=== PATIENT | male | born 1945 | race Hispanic/Latino ===

== ENCOUNTER 2016-11-20 15:32 | Inpatient (IN) | payer MEDICARE ==
[~2016-11-20] VITALS: Ht 172.7 cm; Wt 75.2 kg
[~2016-11-20 15:32] MED LIST: FUR20 PO; GLPZ5T PO; INSU100V7 SUBQ; LIP40 PO; LISI40TA PO; LOM PO; MECL-114 PO; METF1000 PO; METO25TA6 PO; POTA10TA12 PO; PREG100C PO; TRIA10.8 NOSTRIL
[2016-11-20 15:36] VITALS: BP 82/48; PULSE 67; RESP 14; O2SAT 99
[2016-11-20 16:24] LABS: BASOPHILS % (AUTO) 0.2 % (0-3); EOSINOPHILS % (AUTO) 0.6 % (0-5); MONOCYTES % (AUTO) 7.1 % (4-12); Mean Corpuscular Hemoglobin 20.9 pg (27.0-35.0); Mean Corpuscular Volume 70.1 fL (81-100); NEUTROPHILS % (AUTO) 85.9 % (40-74); Platelet Count 172 bil/L (150-400)
--- NOTE | 2016-11-20 16:50 | ED.REPORT ---
HPI-GI Bleed Date of Service November 20, 2016 ED Provider: Jovan Troncoso MD Patient is a 71 year old male who presents to the ED complaining of bright red bloody stools with clots onset last night. Associated symptoms include generalized weakens. He denies abdominal pain, chest pain, SOB, or any other symptoms. Past bloody couple times today. First bowel movement today had stool others did not. He has not passed any blood rectally since arrival. Not anticoagulated, no history of similar problems, does have a history of anemia. He is not on blood thinners. Nursing Notes Stated Complaint: BLEEDING Chief Complaint: Male Abdominal Pain Nursing Notes Reviewed: Yes Allergies: Coded Allergies: No Known Allergies (Verified Allergy, Unknown, 09/27/16) Scheduled Atorvastatin (Lipitor) 40 Mg Tablet 40 MG PO DAILY Furosemide (Furosemide) 40 Mg Tablet 40 MG PO DAILY Insulin Glargine (Lantus U100 Insulin Vial) 100 Unit/Ml Vial 12 UNIT SUBQ BID General Time Seen by Provider: 16:49 Chief Complaint Chief Complaint: Stool bright red blood Hx Obtained From: Patient, Other family... Arrived By: Walk-in Onset Occurred: Yesterday Symptom Duration: Since onset Past Medical History Past Medical History Notes: Patient is full code Past Medical History Peripheral neuropathy Reports: Diabetes mellitus, Hypertension Past Surgical History R hip replacement Smoking History Never Smoker Social History Alcohol Use: 1-3 per week Ambulatory Status Crutches Review of Systems Constitutional: Reports: Weakness - generalized Respiratory: Denies: Shortness of breath Cardiovascular: Denies: Chest pain GI: Reports: Hematochezia, Denies: Abdominal pain Complete sys rev & neg: except as marked. Physical Exam Initial Vital Signs Vital Signs (First) Date Time Temp Pulse Resp B/P Pulse Ox O2 Delivery O2 Flow Rate FiO2 11/20/16 15:36 35.9 67 14 82/48 99 Initial VS: Reviewed, Vital signs normal Head / Eyes: Atraumatic, Normocephalic Neck: Full range of motion Skin: Warm, Dry Psychiatric: Mood/affect normal, Behavior normal, Normal thought content General/Constitutional: Awake, Alert, Well developed Respiratory / Chest: Breath sounds NL, Breath sounds = bilat, No respiratory distress Cardiovascular: Heart rate NL, Regular rhythm, Heart sounds NL, No gallop, No murmurs, No rubs Abdomen: Soft, Non-tender, BS normoactive, No pulsatile mass Rectum / Perineum: No gross blood guaiac positive Interpretation & Diagnostics Lab Results Interpretation Result Diagram: 11/20/16 1548 11/20/16 1548 Test 11/20/16 15:48 White Blood Count 10.1th/mm3 (3.8-10.1) Red Blood Count 3.35mil/mm3 (4.40-5.80) Hemoglobin 7.0g/dL (13.8-17.2) Hematocrit 23.5% (41.0-50.0) Mean Corpuscular Volume 70.1fL (81-100) Mean Corpuscular Hemoglobin 20.9pg (27.0-35.0) Mean Corpuscular Hemoglobin Concent 29.8% (32.0-37.0) Red Cell Distribution Width 18.8% (12.3-15.4) Platelet Count 172bil/L (150-400) Neutrophils (%) (Auto) 85.9% (40-74) Lymphocytes (%) (Auto) 5.9% (14-46) Monocytes (%) (Auto) 7.1% (4-12) Eosinophils (%) (Auto) 0.6% (0-5) Basophils (%) (Auto) 0.2% (0-3) Prothrombin Time 10.7sec (8.1-12.5) Prothromb Time International Ratio 1.00ratio Sodium Level 132mEq/L (134-144) Potassium Level 4.6mEq/L (3.5-5.2) Chloride Level 98mEq/L (97-108) Carbon Dioxide Level 18mmol/L (18-29) Blood Urea Nitrogen 48mg/dL (8-27) Creatinine 2.27mg/dL (0.76-1.27) Estimat Glomerular Filtration Rate 30mL/min (>59) Glucose Level 416mg/dL (60-99) Calcium Level 8.7mg/dL (8.5-10.1) Total Bilirubin 0.2mg/dL (0.0-1.2) Aspartate Amino Transf (AST/SGOT) 28U/L (0-50) Alanine Aminotransferase (ALT/SGPT) 64U/L (0-44) Alkaline Phosphatase 165U/L (25-160) Total Protein 7.4g/dL (6.4-8.4) Albumin 2.9g/dL (3.4-5.0) Hold Khouyr Top Tube Received (Received) Lab Results Interpretation: Labs on 10/25/15: hemoglobin 8.8 hematocrit 27.0 ECG Interpretation ECG Interpretation: Sinus rate 67 LVH Abnormal R wave progression Time: 16:19 Interpreted by: ED physician Re-Eval/Medical Decision Med Decision/Clinical Course [id number] male with GI bleeding and anemia. Arrived with a reported systolic pressure of 80, subsequent blood pressures were normotensive and he was not orthostatic. Not having active bleeding in the department. Type and crossmatch for 4 units of packed red cells, I do not feel its mandatory to transfuse him at present. Was given a Protonix bolus and will need a Protonix drip GI has been consulted will be admitted to the hospitalist service. Re-Evaluation/Progress : Time of Eval: 16:59 Re-Evaluation/Progress Note: Discussed plan for admission. Patient understands and agrees with plan. All questions addressed at this time. Pt agrees to blood transfusion if necessary. Consultation #1: Referral / Consult Name: Deep Peterson MD Call Returned at: 17:30 Note: Discussed pt case with GI. Will consult. Consultation #2: Referral / Consult Name: Guru Jean Baptiste DO Consulted With: Hospitalist Call Returned at: 18:07 Rope Cleaner: Will see patient, Agrees with eval, Agrees with plan, Accepts admit Note: Discussed pt case. Accepts admit. Counseled Regarding: Diagnosis, Lab results, Need for admission Discharge & Departure Impression: Primary Impression: GI bleed GI bleed type/associated pathology: unspecified gastrointestinal hemorrhage type Qualified Code: K92.2 - Gastrointestinal hemorrhage, unspecified Disposition: ADMITTED TO HOSPITAL Discharge Condition All VS Reviewed: Yes Condition: Stable Referrals: Afsaneh Ybarra DO (PCP) Scribe Attestation Portions of this note were transcribed by Sana Woodward. I, Dr. Troncoso personally performed the history, physical exam and medical decision-making; I reviewed and confirmed the accuracy of the information in the transcribed note. Signed by: Sana Woodward 11/20/2016, 1811 copies to: Afsaneh Ybarra Donald L MD November 20, 2016 16:50 SANA WOODWARD November 20, 2016 16:58
[2016-11-20] MEDS ORDERED: 0.9% Sodium Chloride 1,000 ML IV ONE (17:10)
[2016-11-20 17:25] VITALS: BP_SYST 126; BP_DIAS 56; BP_DIAS 65; PULSE 67; PULSE 68
[2016-11-20 17:27] VITALS: BP 131/83; PULSE 69
[2016-11-20] MEDS ORDERED: Pantoprazole 4 mg/mL 10 mL Inj IVPUSH ONE (17:40)
[2016-11-20] MEDS ORDERED: INSU100V7 SUBQ (17:43)
[2016-11-20] MEDS ORDERED: FURO40TA4 PO (17:43)
[2016-11-20] MEDS ORDERED: 0.9% Sodium Chloride 1,000 ML IV SCH (18:09)
[2016-11-20] MEDS ORDERED: Glucose 40% Oral Gel 15 Gm Tube PO PRN (18:10)
[2016-11-20] MEDS ORDERED: Polyethylene Glycol (PEG) 17 Gm Powder PO PRN (18:10)
[2016-11-20] MEDS ORDERED: Ondansetron 2 mg/mL 2 mL Inj IVPUSH PRN (18:10)
[2016-11-20] MEDS ORDERED: Alum-Mag Hydrox-Simeth 30 mL Suspension PO PRN (18:10)
--- NOTE | 2016-11-20 18:18 | PCM.HPMED ---
Subjective Date of Service November 20, 2016 Primary Provider: Admitting Physician: Primary Care Physician: Afsaneh Ybarra DO Attending Physician: Chief Complaint: Bright red blood in stool starting last night History of Present Illness: Patient is 71-year-old male past medical history significant for diabetes mellitus poorly controlled in addition to previously noted anemia presenting to emergency department earlier today for multiple episodes of bright red blood per rectum noted with stool which started last night. Denies any abdominal pain during that process or any other acute complaints. He has not been experiencing any lightheadedness chest pain shortness of breath palpitations. Additionally denies any fever chills or sweats. He denies any previous episodes of blood in his stool. He is not on any blood thinning medication, does not suffer from severe reflux, and has no past history of known gastric intestinal conditions. He does suffer from diabetes which is known to be poorly controlled, additionally suffers from lower extremity swelling but he is not aware of any cardiac conditions. There was no other acute complaints at this time. States he is feeling overall pretty well, though when pressed admits perhaps a little more weak than usual. Review of Systems: A 10 point review of systems was conducted and entirely negative excepting pertinent positives and negatives included in above history of present illness Allergies Coded Allergies: No Known Allergies (Verified Allergy, Unknown, 09/27/16) Home Medications Atorvastatin (Lipitor) 40 Mg Tablet 40 MG PO DAILY Furosemide (Furosemide) 20 Mg Tab 20 MG PO DAILY Glipizide (Glipizide) 5 Mg Tablet 5 MG PO BIDAC Insulin Glargine (Lantus U100 Insulin Vial) 100 Unit/Ml Vial 12 UNIT SUBQ BID Lisinopril (Lisinopril) 40 Mg Tablet 20 MG PO DAILY Meclizine (Bonine) 25 Mg Tab.chew 25 MG PO DAILY Metformin (Glucophage) 1,000 Mg Tablet 1,000 MG PO BIDWM Metoprolol Tartrate (Metoprolol Tartrate) 25 Mg Tablet 25 MG PO BID Potassium Chloride ER (Potassium Chloride ER) 10 Meq Tablet 10 MEQ PO DAILY TAKE WITH FOOD Pregabalin (Lyrica) 100 Mg Capsule 100 MG PO TID Triamcinolone Acetonide (Nasacort) 10.8 Ml [place] 1 SPRAY NOSTRIL DAILY 1 spray in each nostril Scheduled PRN Diphenoxylate/Atropine (Diphenoxylate-Atrop 2.5-0.025) 2.5 Mg Tablet 2.5 MG PO Q6 PRN PRN For Diarrhea or Loose Stool PMH Peripheral neuropathy Diabetes mellitus Hypertension Anemia Legally blind Surgical History R hip replacement Family History Patient is unsure of medical history of his parents Social History Hx Alcohol Use: No Hx Substance Use: No Hx Tobacco Use: No Smoking Status: Never Smoker Living Arrangement: with Family Exam Vital Signs Vital Sign - Last Date Time Temp Pulse Resp B/P Pulse Ox O2 Delivery O2 Flow Rate FiO2 11/20/16 17:27 69 131/83 11/20/16 15:36 35.9 14 99 General: Alert, Oriented X3, Cooperative, No Acute Distress Eyes: PERRLA, EOMI, Other (sclera are pale) Mouth: Mucous Membranes Dry Neck: Supple Chest & Lungs: Clear to auscultation & percussion Cardiovascular: Regular Rate/Rhythm, No Murmurs/Rubs/Gallops Abdomen: Non-tender, Non-distended Extremities: No cyanosis/clubbing/edma bilat Neurological: Grossly Neurologically Intact, Cranial Nerves 2-12 Intact Lab and Diagnostics Result Diagram: 11/20/16 1548 11/20/16 1548 Assessment & Plan 71-year-old male past medical history significant for anemia and diabetes mellitus presenting to the emergency department with one-day history of bright red blood per rectum in addition to abdominal pain, subsequently found to have a progressive anemia admitted for further medical evaluation and treatment. 1. Acute gastrointestinal bleed - Based on bright red blood lower GI bleed appears more likely cause of patient' s condition - He will be made nothing by mouth and started on a Protonix pump at this time for expectant endoscopy by gastroenterology or to consulted from ER - Transfusion was also ordered and pending 1 units packed red blood cells - Patient is currently hemodynamically stable - Patient to be started on bowel prep in anticipation of upper and lower endoscopy scheduled tomorrow morning by fur machine operator. 2. Anemia - Subacute on chronic condition - Previously identified during hospitalization 1 year prior October 2015, underlying etiology is not clear at that time despite extensive workup. - Acute management as per problem 1. 3. Diabetes mellitus type II uncontrolled - Patient returns ER with blood sugar over 400 - 10 units insulin provided on admission - Provided intravenous hydration condition to size scale insulin with moderate strength - Hemoglobin A1c is ordered and pending. 4. Acute renal failure - Continue intravenous hydration - Continue to RFTs - May be acute on chronic condition, given past medical history significant for poorly controlled diabetes. 5. Lower extremity edema - During previous hospitalization 2016 patient had echocardiogram that did know concentric thickening with a preserved ejection fraction. - Patient is on home Lasix for treatment of edema plan to restart tomorrow after procedure. - Given history of poorly controlled diabetes he is certainly at risk for coronary artery disease, lower extremity edema may certainly be evidence of this. - Patient is unaware previous workup for subsequent echocardiograms since last evaluation. Likely this can be deferred for outpatient evaluation however should be considered should patient demonstrate evidence of acute exacerbation or decompensation secondary to volume overload. 6. Hyperlipidemia, -Continue home statin to be restarted following procedure Pain Evaluation: Adequate Pain Control GI Prophylaxis: Proton Pump Inhibitor VTE Mechanical Devices: Intermittant Pneumatic CD Resuscitation Status: CPR: Attempt Resuscitation Time spent 55 minutes Guru Jean Baptiste DO November 20, 2016 18:18
[2016-11-20] MEDS ORDERED: PEG/Electrolytes 4,000 mL Solution PO ONE ×2 (18:40→18:45)
[2016-11-20 18:50] VITALS: BP 149/80; PULSE 70; RESP 18; O2SAT 99
[2016-11-20] MEDS ORDERED: 0.9% Sodium Chloride 250 ML IV ONE (18:50)
[2016-11-20] MEDS ORDERED: Insulin LISPRO 300 Unit/3 mL Inj SUBQ ONE (18:55)
[2016-11-20 19:46] VITALS: BP 145/85; PULSE 68; RESP 16; O2SAT 100
[2016-11-20] MEDS: Pantoprazole Inj 80 MG in 0.9% Sodium Chloride 80 ML IV SCH (19:57)
[2016-11-20] MEDS: Insulin LISPRO 300 Unit/3 mL Inj SUBQ SCH (23:54)
[2016-11-21] VITALS (17 sets, daily range): BP systolic 101–161; BP diastolic 64–94; PULSE 56–83; RESP 16–20; O2SAT 93–100
[2016-11-21] MEDS ORDERED: PEG/Electrolytes 4,000 mL Solution PO ONE (01:00)
--- NOTE | 2016-11-21 02:43 | CONS ---
[address] [address] CONSULTATION REPORT PATIENT: TRICIA RAMIREZ : 1945 MR#: [id number] ADMIT: 11/20/2016 JOB ID: [id number] DATE OF SERVICE: PHYSICIAN REQUESTING CONSULTATION: Jovan Troncoso MD, in the emergency department. REASON FOR CONSULTATION: Rectal bleeding. HISTORY OF PRESENT ILLNESS: The patient is a 71-year-old gentleman whose past medical history is significant for poorly-controlled diabetes and chronic anemia dating back to at least October 04, 2015, who apparently was in his usual state of health until yesterday evening when he had painless rectal bleeding which he describes as bright red. He had one episode the night before last and had another episode today and, therefore, he presented to the emergency department via car. He denies any associated abdominal pain, nausea, vomiting, fevers, chills, sweats. He denies any diarrhea or constipation. He states he has had no prior history of rectal bleeding. He has had no history of endoscopy needed for colon cancer screening, upper endoscopy for gastroesophageal reflux, or history of peptic ulcer disease. He does take Advil liquid gels, not daily, but he states that for the last seven years has been taking off and on for right hip pain following right hip surgery. He denies any nausea or vomiting. He does not take any antacids at home. His weight has been stable. He denies starting any new medications. He denies any blood thinning medications. PAST MEDICAL HISTORY: Significant for diabetes, hypertension, chronic anemia, peripheral neuropathy. PAST SURGICAL HISTORY: Includes right hip surgery. FAMILY HISTORY: Noncontributory. SOCIAL HISTORY: Denies any alcohol abuse. Denies any tobacco use. He lives with his daughter in [place]. 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 HOME MEDICATIONS: Include atorvastatin, furosemide, glipizide, Lantus, lisinopril, meclizine, metformin, metoprolol, potassium chloride, Lyrica, triamcinolone acetonide. He takes diphenoxylate-atropine for diarrhea or loose stools, which he states has been a while since he has had. ALLERGIES: He has no known drug allergies. REVIEW OF SYSTEMS: His 10 point review of systems is unremarkable. PHYSICAL EXAM: Initially in the ED, he was hypotensive with a blood pressure of 82/48, but then with subsequent IV fluids, his blood pressure improved to 149/80. He has been afebrile. His current temperature was 36.3, his pulse was 70, respiratory rate is 18, with an O2 saturation of 99% on room air. Generally, he is an elderly-appearing gentleman, who appears younger than his stated age. HEENT: Mild pallor. No icterus. Oropharynx is clear. Chest exam is clear to auscultation bilaterally. Cardiovascular exam: S1, S2 heard. Abdomen is soft, nontender, nondistended, without hepatosplenomegaly. Extremities with edema. LABORATORY DATA: Shows hemoglobin of 7, hematocrit of 23.5. His baseline hemoglobin for the past one year has ranged anywhere from 7.5-8.8. His platelet count is 172. His PT is 10.7, and INR is 1. His sodium 132, potassium 4.6, chloride of 48, CO2 of 18. His previous creatinine was 1.15, and BUN was 31, and this is from October 2015. The remainder of his comprehensive metabolic profile shows an elevated total bili of 2, AST of 28, ALT of 64, alkaline phosphatase is 165, total protein 7.4, albumin of 2.9. CT imaging done back in October 2015, which includes chest, abdomen, and pelvis with IV contrast, shows that the liver and spleen are normal in size and enhancement. Gallbladder appeared normal. Biliary system is nondilated. Pancreas enhances normally. He has some very small bilateral simple-appearing pleural effusions incidentally noted, bibasilar atelectasis, otherwise unremarkable CT chest, abdomen, and pelvis. ASSESSMENT AND PLAN: 1. A 71-year-old gentleman with a history of poorly-controlled diabetes, presenting with rectal bleeding, with acute kidney injury. Recommended starting him on a PPI drip and prepping for a colonoscopy. With his history of Advil, we may be dealing with an upper GI source such as peptic ulcer disease, esophagitis or gastritis. If upper endoscopy is negative, will plan then to evaluate his colon for a lower GI source which may be secondary to diverticular disease versus neoplasm, which I believe is less likely, versus arteriovenous malformations (AVMs). Would continue to ensure the patient has two peripheral IVs. Type and cross, and transfuse blood to keep hemoglobin above 7. 2. Abnormal liver function tests. Would recommend checking a hepatitis panel as well as obtaining an ultrasound of his liver. If those are normal, would recommend completing a chronic liver disease workup just to rule out any underlying chronic liver disease. 3. Renal insufficiency. I suspect this may be from his bleeding, and I suspect may be resolved with transfusion of blood products and IV fluids. Thank you for allowing me to participate in the patient's care. If you have any further questions, please do not hesitate to contact me.
[2016-11-21] MEDS: Pantoprazole Inj 80 MG in 0.9% Sodium Chloride 80 ML IV SCH (05:03)
[2016-11-21 05:24] LABS: BASOPHILS % (AUTO) 0.3 % (0-3); EOSINOPHILS % (AUTO) 1.9 % (0-5); MONOCYTES % (AUTO) 9.3 % (4-12); Mean Corpuscular Hemoglobin 22.5 pg (27.0-35.0); Mean Corpuscular Volume 73.1 fL (81-100); NEUTROPHILS % (AUTO) 76.5 % (40-74); Platelet Count 144 bil/L (150-400)
--- NOTE | 2016-11-21 05:41 | NUR ---
Admission/Blood transfusion Patient admitted to [facility] 2030 at 1850. Bowel prep initiated per orders for 0700 procedure. Patient given 1 unit of PRBC for low H&H; tolerated transfusion well. Patient completed bowel prep within the specified time limit and made NPO after 0300. Continue to monitor.
[2016-11-21] MEDS ORDERED: Propofol 10,000 mCg/mL 20 mL Inj ONE (07:08)
[2016-11-21] MEDS: Insulin LISPRO 300 Unit/3 mL Inj SUBQ SCH ×4 (08:00→22:00)
[2016-11-21] MEDS ORDERED: Ondansetron 2 mg/mL 2 mL Inj IVPUSH PRN (08:15)
[2016-11-21] MEDS ORDERED: MetoCLOpramide 5 mg/mL 2 mL Inj IVPUSH PRN (08:15)
[2016-11-21] MEDS ORDERED: Lactated Ringer's 1,000 ML IV SCH (08:15)
--- NOTE | 2016-11-21 08:15 | PCM.HPANE ---
Patient Data Date of Service: November 21, 2016 (Exam completed 7:02) Surgeon Admitting Provider:Guru Jean Baptiste DO Attending Provider:Guru Jean Baptiste DO Primary Care Physician:Afsaneh Ybarra DO Other Provider: Reason for Visit Gi Bleed Ht/WT & BMI Height (Feet): 5 Height (Inches): 8.00 Weight (Kilograms): 77.270 Body Mass Index 25.00 Allergies Coded Allergies: No Known Allergies (Verified Allergy, Unknown, 09/27/16) Past Anesthesia History Anesthesia History: Denies:: Anesthesia Reactions Diabetes History Hx Diabetes?: Yes (insulin at home) Current Bedside Blood Glucose: 127 MRSA MRSA: No Medications Home Meds Incl Beta Gretchen: Yes Date Beta Gretchen Taken: November 19, 2016 Time Beta Gretchen Taken: 0900 Reported Medications Furosemide 40 Mg Vgvufy67 Mg PO DAILY 11/20/16 Insulin Glargine (Lantus U100 Insulin Vial)100 Unit/Ml Vial12 Unit SUBQ BID #1 VIAL Ref 0 11/20/16 Atorvastatin (Lipitor)40 Mg Lhbagk71 Mg PO DAILY Ref 0 10/22/15 Discontinued Reported Medications Potassium Chloride ER 10 Meq Tobpkb89 Meq PO DAILY Ref 0 TAKE WITH FOOD 09/27/16 Pregabalin (Lyrica)100 Mg Simhjcy090 Mg PO TID 30 Days Ref 0 09/27/16 Meclizine (Bonine)25 Mg Tab.chew25 Mg PO DAILY 06/18/16 Diphenoxylate/Atropine (Diphenoxylate-Atrop 2.5-0.025)2.5 Mg Tablet2.5 Mg PO Q6 PRN For Diarrhea or Loose Stool 06/18/16 Glipizide 5 Mg Tablet5 Mg PO BIDAC 30 Days 10/22/15 Metformin (Glucophage)1,000 Mg Tablet1,000 Mg PO BIDWM Ref 0 10/22/15 Triamcinolone Acetonide (Nasacort)10.8 Ml Spray1 [place] NOSTRIL DAILY 1 spray in each nostril 10/22/15 Lisinopril 40 Mg Daiqex20 Mg PO DAILY 30 Days Ref 0 10/22/15 Insulin Glargine (Lantus U100 Insulin Vial)100 Unit/Ml Vial12 Unit SUBQ BID #1 VIAL Ref 0 10/22/15 Discontinued Scripts Furosemide 20 Mg Tab20 Mg PO DAILY #30 TABLET Ref 0 Prov:Sawyer Meza DO 10/25/15 Metoprolol Tartrate 25 Mg Tbqitn81 Mg PO BID #60 TABLET Ref 0 Prov:Sawyer Meza DO 10/25/15 History History of ENT Problems?: No HEENT History: Denies:: Cataracts (patient unsure) Dysphagia Glaucoma Sinus Problem Denture Type: None Teeth Condition: Tooth Decay Missing Teeth Hx of Heart Problems?: Yes Cardiovascular History: Positive for:: Chest Pain Congestive Heart Failure Hypertension Denies:: Cardiac Surgery Edema Heart Murmur Irregular Heartbeat Pacemaker Thrombophlebitis Hx of Respiratory Problem?: No Respiratory History: Positive for:: Emphysema Other History/Comment Possible COPD, patient unsure but reports possibility. Hx Neurologic Problems?: Yes Neurological History: Positive for:: Dizziness Headaches Denies:: Alzheimer's Disease CVA Dementia Parkinson's Disease Seizures Hx of GI Problems?: Yes Hx of Problems?: No Male Hx: Denies:: Prostate Problems ("I have to check it") Scrotal Mass Testicular Surgery Other Skin Pertinent History: Diabetic foot ulcers bilateral lower extremities Hx Musculoskeletal Problems?: Yes Musculoskeletal History: Positive for:: Back Injury (back pain) Joint Replacement (right hip) Denies:: Musculoskeletal Trauma Hx of Psycho/Social Problems?: No Hx Surgeries?: Yes (Right hip replacement, Right knee surgery) Hx Any Other Health Problems?: Yes Other History: Positive for:: Hospitalization (hip replacement, foot wounds) Denies:: Cancer Thyroid Disease History Blood Transfusions: Positive for:: Accept Blood Products? Blood Transfusions Denies:: Blood Transfuse Reaction Hx Diabetes: Yes (insulin at home)Bedside Blood Glucose: 127 Hx Alcohol Use: Yes (occasional social, last drink 1 beer on 11/19)Alcoholic Drinks Per Day: 1-2 on weekends or social occasionsHx Substance Use: No Smoking Status: Never Smoker Stop/Bang Treated for Sleep Apnea?: No Do You Have a CPAP Machine?: No S-Snoring: Do You Snore Loudly: No T-Tired: feel tired, fatigued: No O-Obsered: Observed not breath: No P-Blood Pressure: treated: Yes B- Body Mass Index > 35 kg/m2: No A- Age over 50: Yes N- Neck Large Circumference: No G- Gender Male: Yes SENDY Total Score: 3 SENDY Risk Assessment: Low Risk, <3 Yes Risk Assessment Category Category 1A: Patient has history of documented sleep apnea, and HAS NOT received any narcotic, sedative or anesthesia administration during this stay. Category 1B: Patient has history of documented sleep apnea, and HAS received any narcotic , sedative or anesthesia administration during this stay Category 2: Patient has SUSPECTED Obstructive Sleep Apnea, and HAS received any narcotic , sedative or anesthesia administration during this stay. Category 3: Patient has SUSPECTED Obstructive Sleep Apnea and HAS NOT received narcotic, sedative or anesthesia administration during this stay. Category 4: Outpatient in Procedural Areas with known sleep apnea or who screen positive for High Risk via the STOP/BANG questionnaire. Exam Exam Vital Signs Vital Signs Date Time Temp Pulse Resp B/P Pulse Ox O2 Delivery O2 Flow Rate FiO2 11/21/16 08:09 67 16 124/72 94 Room Air 11/21/16 08:01 70 16 118/73 94 Room Air 11/21/16 07:02 60 16 133/82 100 Room Air 11/21/16 05:08 69 11/21/16 03:57 34.7 56 16 117/69 11/21/16 02:13 57 101/66 11/21/16 01:38 36.3 61 16 104/64 100 Room Air 11/21/16 01:34 36.3 62 16 104/64 11/21/16 01:04 36.4 65 16 124/75 General Appearance: Alert, Oriented X3, Cooperative, No Acute Distress HEENT/AIRWAY: MP 2, Neck Movement Lungs: Clear to Auscultation, Normal Air Movement Heart: Exam Unremarkable, Regular Rate/Rhythm, No Murmurs/Rubs/Gallops Meds/Labs/Diagnostics Admission Meds Current Medications Sodium Chloride (Normal Saline) 1,000 ml @ 0 mls/hr Q0M ONCE IV Last administered on 11/20/16 17:24; Start 11/20/16 at 17:10; Stop 11/20/16 at 17:11 ; Status DC Pantoprazole 40 mg 40 mg ONCE ONCE IVPUSH Last administered on 11/20/16 17:46 ; Start 11/20/16 at 17:40; Stop 11/20/16 at 17:41; Status DC Pantoprazole/ Sodium Chloride (Protonix Inj/ Normal Saline) 100 ml @ 10 mls/hr Q10H IV Last administered on 11/21/16 05:03; Start 11/20/16 at 18:10 Insulin Human Lispro (HumaLOG Insulin Inj) [facility] SUBQ Last administered on 11/20 23:54; Start 11/20/16 at 22:00 Polyethylene Glycol/ Electrolytes (Colyte) 2,000 ml ONCE ONCE PO Last administered on 11/21/16 01:02; Start 11/21/16 at 01:00; Stop 11/21/16 at 01:01 ; Status DC Polyethylene Glycol/ Electrolytes 2000 ml 2,000 ml ONCE ONCE PO Last administered on 11/20/16 19:57; Start 11/20/16 at 18:45; Stop 11/20/16 at 18:46 ; Status DC Sodium Chloride (Normal Saline) 250 ml @ 10 mls/hr Q24H ONCE IV Last administered on 11/21/16 01:02; Start 11/20/16 at 18:50; Stop 11/21/16 at 18:49 Bedside Blood Glucose: 127 Labs Test 11/20/16 15:48 11/21/16 04:27 Prothrombin Time 10.7sec (8.1-12.5) Prothromb Time International Ratio 1.00ratio Hold Khoury Top Tube Received (Received) White Blood Count 7.3th/mm3 (3.8-10.1) Red Blood Count 3.46mil/mm3 (4.40-5.80) Hemoglobin 7.8g/dL (13.8-17.2) Hematocrit 25.3% (41.0-50.0) Mean Corpuscular Volume 73.1fL (81-100) Mean Corpuscular Hemoglobin 22.5pg (27.0-35.0) Mean Corpuscular Hemoglobin Concent 3.8% (32.0-37.0) Red Cell Distribution Width 21.8% (12.3-15.4) Platelet Count 144bil/L (150-400) Neutrophils (%) (Auto) 76.5% (40-74) Lymphocytes (%) (Auto) 11.9% (14-46) Monocytes (%) (Auto) 9.3% (4-12) Eosinophils (%) (Auto) 1.9% (0-5) Basophils (%) (Auto) 0.3% (0-3) Sodium Level 137mEq/L (134-144) Potassium Level 4.8mEq/L (3.5-5.2) Chloride Level 103mEq/L (97-108) Carbon Dioxide Level 20mmol/L (18-29) Blood Urea Nitrogen 43mg/dL (8-27) Creatinine 1.93mg/dL (0.76-1.27) Estimat Glomerular Filtration Rate 37mL/min (>59) Glucose Level 127mg/dL (60-99) Calcium Level 8.6mg/dL (8.5-10.1) Total Bilirubin 0.5mg/dL (0.0-1.2) Aspartate Amino Transf (AST/SGOT) 30U/L (0-50) Alanine Aminotransferase (ALT/SGPT) 58U/L (0-44) Alkaline Phosphatase 153U/L (25-160) Total Protein 6.8g/dL (6.4-8.4) Albumin 2.9g/dL (3.4-5.0) Plan Impression Patient chart reviewed, patient interviewed and anesthestic plan with risks, benefits, and alternatives discussed, and informed consent obtained. NPO per Anesth. Guidelines: Yes ASA Physical Status: ASA3 Severe Disease Anesthetic Plan: GA Bene/Risks/Altern/Consents: Yes HP Complete Prior to Induction: Yes Abdelrahman Colon MD November 21, 2016 08:15
--- NOTE | 2016-11-21 08:30 | NUR ---
Return to unit Patient returned to unit from enodoscopy. Patient somnolent but easily aroused, oriented x3. Denies pain/discomfort, VSS. Transfers to bed/chair 1PA. Call light within reach and family at bedside.
--- NOTE | 2016-11-21 09:01 | ENDO ---
[address] [address] ENDOSCOPY PROCEDURE PATIENT: TRICIA RAMIREZ : 1945 MR#: [id number] ADMIT: 11/20/2016 JOB ID: [id number] PROCEDURE PERFORMED: Esophagogastroduodenoscopy. INDICATION: Rectal bleeding with elevated BUN and creatinine. Please see anesthesia report for details regarding anesthesia. INSTRUMENT USED: GIF-H180J. PROCEDURE DETAILS: After informed consent was obtained, the patient was brought into the GI suite, where he was placed on oxygen via nasal cannula and monitored with continuous pulse oximeter, telemetry, and blood pressure monitoring. A time-out was performed. Then, he was placed in a left lateral decubitus position. A bite block was placed. The standard esophagogastroduodenoscopy scope was inserted through the bite block and advanced under direct visualization to second portion of the duodenum without difficulty. FINDINGS: 1. Normal appearing duodenal bulb, first and second portion. No old or fresh blood was seen on exam. 2. Normal appearing pylorus and antrum. 3. Retroflexed views in the gastric body revealed food debris present in the fundus which we were unable to evacuate. Therefore visualization of the complete fundus was limited, however no old or fresh blood was seen in the stomach. 4. The GE junction appeared unremarkable at 44 cm. 5. Normal appearing esophagus. IMPRESSION: Food debris in the fundus suggestive of gastroparesis. RECOMMENDATIONS: Discontinue Protonix drip to keep on Protonix daily and proceed to colonoscopy. PROCEDURE PERFORMED: Colonoscopy. INDICATION: Rectal bleeding. Please see above for ASA classification, Mallampati score, and medications. INSTRUMENT USED: PCF-H180L PREP QUALITY: Adequate, though in the right colon there was solid fibrinous food debris which we were unable to clear despite copious amounts of irrigation, however no large lesions seen, smaller polyps may have been missed. PROCEDURE DETAILS: After completion of the EGD exam, the patient was turned and then a digital rectal exam was performed, which was unremarkable. The colonoscope was then inserted into the rectum and advanced under direct visualization to the cecum, which was identified by the presence of the ileocecal valve and appendiceal orifice. Once the cecum was reached, we attempted to intubate the terminal ileum. However despite multiple attempts we were unsuccessful. At this point, the colonoscope was then withdrawn back into the rectum as the mucosa and lumen were examined. In the rectum, retroflexion was performed. Following retroflexion, remaining air in the rectum was suctioned, and procedure was completed. FINDINGS: 1. Approximately 4 mm sessile polyp in the ascending colon was removed with a cold snare. 2. A few small-mouthed diverticula were seen in the descending colon. 3. Small internal hemorrhoids were also noted on retroflexion. IMPRESSION: 1. Ascending colon polyp. 2. A few scattered diverticula in the left side of the colon. 3. Small internal hemorrhoids. No old or fresh blood was seen on exam. RECOMMENDATIONS: A clear liquid diet today and if no further bleeding and H and H has remained stable, could advance diet tomorrow and possibly discharged home. He has further bleeding and H and H stable tomorrow. COMPLICATIONS: None. ESTIMATED BLOOD LOSS: Less than 5 mL.
--- NOTE | 2016-11-21 10:22 | PCM.ANEP1 ---
Post Anesthesia PACU Phase 1 Assessment Vital Signs Vital Signs Date Time Temp Pulse Resp B/P Pulse Ox O2 Delivery O2 Flow Rate FiO2 11/21/16 08:45 36.0 66 16 144/84 98 Room Air 11/21/16 08:35 66 11/21/16 08:15 67 16 125/74 93 Room Air 11/21/16 08:09 67 16 124/72 94 Room Air 11/21/16 08:01 70 16 118/73 94 Room Air 11/21/16 07:02 60 16 133/82 100 Room Air 11/21/16 05:08 69 11/21/16 03:57 34.7 56 16 117/69 Anesthetic Administered: MAC Level of Alertness: Awake, talking Pain: No Nausea or Vomiting: No CV Function and Hydration: Yes Airway Device: Oxygen Delivery: Room Air Lungs: Clear to Auscultation, Normal Air Movement Dermatome Level: Full Sensation PACU Phase 2 Assessment Complications: No Follow up Care: N/A Patient Instructions Provided: Yes Abdelrahman Colon MD November 21, 2016 10:21
--- NOTE | 2016-11-21 14:09 | PCM.PNMED ---
Subjective Date of Service November 21, 2016 Subjective Fahad Hu is a 71-year-old man with past medical history significant for anemia and diabetes mellitus presenting to the emergency department with one- day history of bright red blood per rectum in addition to abdominal pain, subsequently found to have a progressive anemia admitted for further medical evaluation and treatment. This morning the patient ate a full diet and tolerated it well. There have been no further episodes of bleeding. The patient states he feels well and denies any abdominal pain. The remainder of review of systems is negative except as noted above. Exam Vital Signs Vital Sign - Last Date Time Temp Pulse Resp B/P Pulse Ox O2 Delivery O2 Flow Rate FiO2 11/21/16 13:34 36.8 83 18 141/86 100 Room Air Intake and Output 11/20/16 11/20/16 11/21/16 Cumulative From/Thru 15:00 23:00 07:00 11/20/16 15:36 - 11/21/16 06:54 Intake Total 5027 ml 5027 ml Output Total 3000 ml 3000 ml Balance 2027 ml 2027 ml Intake Oral 4000 ml 4000 ml IV Total 727 ml 727 ml Packed Cells 300 ml 300 ml Output Urine/Stool Mix 3000 ml 3000 ml Exam General: Alert, Oriented X3, Cooperative, No Acute Distress Eyes: PERRLA, EOMI, Other (sclera are pale) Mouth: Mucous Membranes Dry Neck: Supple Chest & Lungs: Clear to auscultation & percussion Cardiovascular: Regular Rate/Rhythm, No Murmurs/Rubs/Gallops Abdomen: Non-tender, Non-distended Extremities: No cyanosis/clubbing/edma bilat Neurological: Grossly Neurologically Intact, Cranial Nerves 2-12 Intact IVs and Medications Medications Reviewed: Medications were reviewed in detail Lab and Diagnostics Result Diagram: 11/21/16 0427 11/21/16 0427 Additional Diagnostics EGD and Colonoscopy findings: IMPRESSION: Food debris in the fundus suggestive of gastroparesis. IMPRESSION: Ascending colon polyp. A few scattered diverticula in the left side of the colon. Small internal hemorrhoids. No old or fresh blood was seen on exam. Deep Peterson MD 11/21/16 4541 Assessment & Plan Fahad Hu is a 71-year-old man with past medical history significant for anemia and diabetes mellitus presenting to the emergency department with one- day history of bright red blood per rectum in addition to abdominal pain, subsequently found to have a progressive anemia admitted for further medical evaluation and treatment. 1. Acute gastrointestinal bleed, present on admission, resolved - Based on bright red blood lower GI bleed appears more likely cause of patient' s condition. - EGD and colonoscopy were not revealing of cause of bleeding. - Transfusion was also ordered and pending 1 units packed red blood cells - Patient is currently hemodynamically stable - Continue clear liquids today per Dr. Peterson 2. Anemia, normochromic normocytic, present on admission, stable - Subacute on chronic condition - Previously identified during hospitalization 1 year prior October 2015, underlying etiology is not clear at that time despite extensive workup. - Acute management as per problem 1. 3. Diabetes mellitus type II uncontrolled - Patient returns ER with blood sugar over 400 - 10 units insulin provided on admission - Provided intravenous hydration condition to size scale insulin with moderate strength - Hemoglobin A1c is ordered and pending. 4. Acute renal failure, present on admission, improving - Continue intravenous hydration - May be acute on chronic condition, given past medical history significant for poorly controlled diabetes. - Continue to monitor 5. Lower extremity edema, present on admission, stable - During previous hospitalization 2015 patient had echocardiogram that did know concentric thickening with a preserved ejection fraction. - Given history of poorly controlled diabetes he is certainly at risk for coronary artery disease, lower extremity edema may certainly be evidence of this. - Patient is unaware previous workup for subsequent echocardiograms since last evaluation. Likely this can be deferred for outpatient evaluation however should be considered should patient demonstrate evidence of acute exacerbation or decompensation secondary to volume overload. Disposition: Anticipate patient can be discharged tomorrow. GI Prophylaxis: Proton Pump Inhibitor VTE Mechanical Devices: Intermittant Pneumatic CD Resuscitation Status: CPR: Attempt Resuscitation Time spent 25 minutes Attending Statement I have seen and evaluated patient at bedside in addition to directly supervising care provided by resident physician. I agree with above documentation In the absence of any acute bleed and patient's medical history significant for severe anemia in the past, it may be that this is a more chronic condition and blood noted with stool partially confounding finding generated from hemorrhoids. Iron deficiency, and possible hormonal imbalance created by renal disease may be more directly related to patient's current condition that acute bleed. Should patient remain essentially hemodynamically stable, and no concern for continued her severe gastrointestinal bleeding identified, possible iron deficiency and potentially consultation nephrology either inpatient or an outpatient setting may be considered. Trupti Phipps DO November 21, 2016 13:53 Guru Jean Baptiste DO November 21, 2016 15:05
--- NOTE | 2016-11-21 15:31 | NUR ---
Social Work: Initial Assessment Data & Assessment: See Initial Assessment. EMR reviewed. Patient is a 71 y/o male that admitted on 11/20/16 for GI bleed per H&P. SW met with patient and patient's family at bedside to complete initial assessment, SW role reviewed and discharge planning discussed. Patient's PCP is Afsaneh Ybarra DO and patient's insurance is Medicare. Patient's re-admit score is 0 no risk. Patient has no VA benefits and no LTC insurance. Patient does not have an Advance Directive/DPOA and declined the information. Patient's NOK is Omid Camargo [phone]. Patient lives at home with his family in a one story home with two steps to enter. Patient does not drive and has uses [place] canes to ambulate. Patient also has a walker and WC if needed. Patient has had HH in the patient but can not recall the name. Patient has never been admitted to a Senior Living Facility. Patient will likely discharge home no needs. SW will continue to follow patient for discharge planning needs. SW provided patient and patient's family with SW contact information. Plan: Patient will likely discharge home no needs. SW will continue to follow patient for discharge planning needs. Gabriel Frederick LMSW, PATT Addendum: 11/21/16 at 1543 by GABRIEL FREDERICK SS Amended: Links added. Addendum: 11/21/16 at 1543 by GABRIEL WONG Patient also has a walker and WC if needed.
[2016-11-22] VITALS (13 sets, daily range): BP systolic 175–224; BP diastolic 85–114; PULSE 70–85; RESP 14–17; O2SAT 97–100
--- NOTE | 2016-11-22 04:23 | NUR ---
GI Patient tolerating a clear liquid diet. Up to commode several times. Voiding without difficulty. No stools and not blood noted. Continue to monitor.
[2016-11-22] MEDS ORDERED: Propofol 10,000 mCg/mL 20 mL Inj ONE (07:49)
[2016-11-22] MEDS ORDERED: fentaNYL-PF 50 mCg/mL 2 mL Inj ONE (07:49)
[2016-11-22] MEDS ORDERED: EPHEDrine/NS 5 mg/mL 5 mL Syringe ONE (07:49)
[2016-11-22] MEDS: Insulin LISPRO 300 Unit/3 mL Inj SUBQ SCH ×4 (08:00→21:25)
[2016-11-22 08:53] LABS: Mean Corpuscular Hemoglobin 22.3 pg (27.0-35.0); Mean Corpuscular Volume 72.3 fL (81-100)
[2016-11-22 08:54] LABS: BASOPHILS % (AUTO) 0.3 % (0-3); EOSINOPHILS % (AUTO) 1.1 % (0-5); MONOCYTES % (AUTO) 11.1 % (4-12); NEUTROPHILS % (AUTO) 66.9 % (40-74); Platelet Count 168 bil/L (150-400)
[2016-11-22] MEDS: 0.9% Sodium Chloride 250 ML IV SCH (09:05)
[2016-11-22] MEDS: Pantoprazole 40 mg ER24 Tablet PO SCH (10:05)
--- NOTE | 2016-11-22 10:20 | PCM.DIMED ---
Discharge Instructions Date of Service November 22, 2016 Dates of Hospitalization November 20, 2016 at 18:12 Discharge Diagnosis Discharge Diagnosis Acute blood loss anemia; probable lower GI bleeding; acute kidney injury; type II diabetes mellitus; chronic disease anemia Medication Instructions Additional med instructions You should stop taking furosemide (Lasix) until you are seen by your primary care doctor and follow-up. This is because your kidneys seem to be slightly dehydrated. Do not take aspirin or iack-wiw-[id number] analgesic medicines except acetaminophen due to GI bleeding. Diet Discharge Diet: Diabetic Activity Discharge Activity: No restrictions, Other (resume Home Health RN for wound care) Call your provider Call your provider for: Bleeding (return to emergency department if you experience large volume bleeding or faintness.) Patient Instructions Patient Instructions Check your bowel movements for the appearance and evidence of blood. This should diminish gradually. Increase in red maroon colored or jet black colored bowel movements, especially if you feel dizzy or faint; indicates more bleeding. If this occurs then return to emergency department. Follow-up plan Check blood pressure. Consider when to return to furosemide. Follow-up Provider: Afsaneh Ybarra DO Follow-up with PCP in: 1 week (call tomorrow for a post-hospital follow-up appointment within 1 week.) Edgardo Chávez MD November 22, 2016 10:20
--- NOTE | 2016-11-22 10:28 | PCM.PNMED ---
Subjective Date of Service November 22, 2016 Subjective GI progress note Overnight the patient did well. No abdominal pain and no reports from nursing any hematochezia or melena. Patient denies obvious symptoms. Exam Vital Signs Vital Sign - Last Date Time Temp Pulse Resp B/P Pulse Ox O2 Delivery O2 Flow Rate FiO2 11/22/16 09:40 36.7 75 16 186/91 97 Room Air Intake and Output 11/21/16 11/21/16 11/22/16 Cumulative From/Thru 15:00 23:00 07:00 11/20/16 15:36 - 11/22/16 06:20 Intake Total 400 ml 1694 ml 300 ml 7421 ml Output Total 850 ml 600 ml 4450 ml Balance 400 ml 844 ml -300 ml 2971 ml Intake Oral 800 ml 300 ml 5100 ml IV Total 400 ml 894 ml 2021 ml Packed Cells 300 ml Output Urine Total 850 ml 600 ml 1450 ml Urine/Stool Mix 3000 ml # Voids 2 2 # Bowel Movements 1 1 Exam General: Patient awake and alert and conversive Cardio: Regular rate and rhythm Respiratory: CTA bilaterally Abdomen: Positive bowel sounds without tenderness Extremities: No edema Psych: Appropriate mood and affect IVs and Medications Medications Reviewed: Medications were reviewed in detail Lab and Diagnostics Result Diagram: 11/22/16 0810 11/22/16 0810 Additional Diagnostics EGD and Colonoscopy findings: IMPRESSION: Food debris in the fundus suggestive of gastroparesis. IMPRESSION: Ascending colon polyp. A few scattered diverticula in the left side of the colon. Small internal hemorrhoids. No old or fresh blood was seen on exam. Deep Peterson MD 11/21/16 7026 Assessment & Plan 71-year-old male with GI bleeding and underwent endoscopy with polypectomy and unremarkable EGD yesterday. Overnight patient's hemoglobin appeared to drop to 6.8 from 7.9. Unsure currently this is an accurate representation of the patient's anemia. Discussion with nursing reveals no hematochezia or melena, and patient does not complain of any nausea or vomiting, or abdominal pain. Recommendations for today are to continue patient on clear liquid diet and recheck H&H at 11:00 this morning. If needed transfusion can be given. Patient should continue on a PPI for now. If hemoglobin is up without transfusion patient should be able to go home. If bleeding continues, PillCam may be appropriate. Please have follow-up in the GI clinic within 2 weeks. Thank you for allowing us to participate in the care of this patient GI Prophylaxis: Proton Pump Inhibitor VTE Mechanical Devices: Intermittant Pneumatic CD Resuscitation Status: CPR: Attempt Resuscitation Attending Statement pt seen and examined agree with his note plan as outlined in his note Manoj Beckett DO November 22, 2016 10:28 Deep Peterson MD Dec 07, 2016 12:55 - 10 units insulin provided on admission - Provided intravenous hydration condition to size scale insulin with moderate strength - Hemoglobin A1c is ordered and pending. 4. Acute renal failure - Continue intravenous hydration - Continue to RFTs - May be acute on chronic condition, given past medical history significant for poorly controlled diabetes. 5. Lower extremity edema - During previous hospitalization 2016 patient had echocardiogram that did know concentric thickening with a preserved ejection fraction. - Patient is on home Lasix for treatment of edema plan to restart tomorrow after procedure. - Given history of poorly controlled diabetes he is certainly at risk for coronary artery disease, lower extremity edema may certainly be evidence of this. - Patient is unaware previous workup for subsequent echocardiograms since last evaluation. Likely this can be deferred for outpatient evaluation however should be considered should patient demonstrate evidence of acute exacerbation or decompensation secondary to volume overload. 6. Hyperlipidemia, -Continue home statin to be restarted following procedure GI Prophylaxis: Proton Pump Inhibitor VTE Mechanical Devices: Intermittant Pneumatic CD Resuscitation Status: CPR: Attempt Resuscitation Manoj Beckett DO November 22, 2016 10:28
--- NOTE | 2016-11-22 15:33 | NUR ---
Transfusion, Multidisciplinary Care 0930 - Discussed his care with Dr. Chávez, Dr. Phipps, and the rest of the multidisciplinary care team during morning rounds. [id number] - During this time he received 1 unit of Packed Red Blood Cells. Vitals remained consistent and he denied having any signs or symptoms of a blood transfusion reaction. 1142 - Was talking with the patient and asked him if he understood what the Doctors were saying to him. He said he was having a difficult time due to language barrier and medical language that was being used. Asked him if he thought he could benefit from having an wood gluer and he said that a Maltese or Bulgarian wood gluer would be very helpful when his family was not around to translate for him. Told him hospital staff would try to provide that service for him. He was very appreciative. 1218 - Noted that his legs were wrapped in a dressing and his family said that today would be a normal home health wound care day for him. Called Sebastian from Wound Care who said he had not received an order to check on his wounds, but to call him back if the Doctors decided to order it. 1300 - Spoke to Dr. Phipps and informed her of his need for an wood gluer. Also asked if he could get wound care. She said that if he needs to stay another day due to his H/H being low after a transfusion then he could get wound care today. Otherwise, he would discharge and the home health nurse could tend to him today. 1423 - Called Samina from the lab and told her the blood transfusion had finished and he would be ready to have his H/H redrawn. She said they would be there about 1500 to obtain it. Awaiting results. Care continues. Addendum: 11/22/16 at 1741 by TOM SWENSON RN 1550 - H/H came back and results were passed on to Dr. Phipps who said she would contact Dr. Chávez for discharge. 1620 - Nancy the [facility] notified this nurse that his blood pressure was 205/95. Paged Dr. Chávez who called back and said he would order some blood pressure medications which were given about 1710. Will check his blood pressure shortly and notify the MD. Care continues. Addendum: 11/22/16 at 1821 by TOM SWENSON RN 180 - Blood pressure was 221/114. Checked manually as well which revealed about the same BP. Notified Dr. Chávez via phone who came and told the pt and his family that due to his high blood pressure his discharge would need to be postponed till tomorrow. They were in agreement. Care continues.
--- NOTE | 2016-11-22 16:21 | NUR ---
Social Work-readiness for discharge: Data:EMR reviewed. Pt is on day 2 of hospitalization for GI Bleed per H&P. Pt is likely medically stable today or tomorrow. Pt resides at home with family where he remains independent with ADLS. SW informed by RN that pt is open with HH Services. SW placed a call to pt's daughter Omid who confirms that pt is open with [facility] for RN services. Resume HH orders will be needed from . Daughter confirms no other needs at this time. Pt's daughter to provide transport home. SW will continue to follow. Assessment:Pt who independent at baseline. Plan:Pt to discharge home with family support when medically stable. Per daughter pt is open with [facility]-RN. Resume HH orders will be needed from . SW will continue to follow. YAYA Valle
[2016-11-22] MEDS ORDERED: Enalaprilat 1.25 mg/mL 2 mL Inj IVPUSH STA (16:31)
--- NOTE | 2016-11-22 16:39 | NUR ---
Social Work- discharge: Data:EMR reviewed. Pt is on day 2 of hospitalization for GI Bleed per H&P. Pt is likely medically stable for discharge. Pt resides at home with family where he remains independent with ADLS. SAGAR requested Resume HH orders from For [facility]- career development manager. Samira aware of the pt and will resume services at home, access given. Pt's daughter updated and agreeable to plan. Daughter to provide transport home. All updated and agreeable to plan. Assessment:Pt who independent at baseline. Plan:Pt to discharge home with family support today via POV. Resume HH orders to be provided to [facility] For RN-wound care, access given. All updated and agreeable to plan. YAYA Valle Addendum: 11/23/16 at 0805 by HAI BEGUM SS SAGAR updated that pt did not discharge last night, discharge was cancelled. SAGAR will continue to follow. YAYA Valle
--- NOTE | 2016-11-22 17:22 | NUR ---
Wound care Patient seen at bedside for dressing change, pt usually has HH doing dressing changes 3xs/week. Presents with 2 small venous stasis ulcers at his right posterior calf, measuring 2 cm in diameter each, cleaned with saline, redressed with adaptic, kerlix and coban. Patient tolerated dressing change and cleaning well. Continue with home health.
--- NOTE | 2016-11-22 17:30 | PCM.DC.MED ---
Discharge Summary Date of Service November 22, 2016 Dates of Hospitalization Date of Hospital Admission November 20, 2016 at 18:12 Date of Discharge: November 22, 2016 Providers: Admitting Physician: Guru Jean Baptiste DO Primary Care Physician: Afsaneh Ybarra DO Attending Physician: Guru Jean Baptiste DO Diagnosis at Time of Discharge Diagnosis at Time of Discharge Acute blood loss anemia; probable lower GI bleeding; acute kidney injury; type II diabetes mellitus; chronic disease anemia Procedures Other Diagnostics EGD and Colonoscopy findings: IMPRESSION: Food debris in the fundus suggestive of gastroparesis. IMPRESSION: Ascending colon polyp. A few scattered diverticula in the left side of the colon. Small internal hemorrhoids. No old or fresh blood was seen on exam. Deep Peterson MD 11/21/16 5049 Brief History History of Present Illness (per admission note): Patient is 71-year-old male past medical history significant for diabetes mellitus poorly controlled in addition to previously noted anemia presenting to emergency department earlier today for multiple episodes of bright red blood per rectum noted with stool which started last night. Denies any abdominal pain during that process or any other acute complaints. He has not been experiencing any lightheadedness chest pain shortness of breath palpitations. Additionally denies any fever chills or sweats. He denies any previous episodes of blood in his stool. He is not on any blood thinning medication, does not suffer from severe reflux, and has no past history of known gastric intestinal conditions. He does suffer from diabetes which is known to be poorly controlled, additionally suffers from lower extremity swelling but he is not aware of any cardiac conditions. There was no other acute complaints at this time. States he is feeling overall pretty well, though when pressed admits perhaps a little more weak than usual. . Hospital Course 1. Acute gastrointestinal bleed, acute, present on admission. Based on bright red blood lower GI bleed appears more likely cause of patient's condition. Endoscopy was unrevealing. He had minimal additional stool output during hospitalization. No evidence of significant ongoing bleeding. Plan for GI to follow-up. - Contact [facility] GI clinic for follow-up with Dr. Soriano in 1-2 weeks. 2. Anemia, acute on chronic. Baseline hemoglobin is approximately 7.5-8 due to chronic disease anemia. Admission hemoglobin was 7.0. Subsequent values were 7.8 and 6.9. There was no clinical evidence of active bleeding. He received 1 unit blood transfusion on the day of discharge, with follow-up hemoglobin 8.2 at time of discharge. 3. Diabetes mellitus type II uncontrolled. Blood sugar at time of admission approximate 400. He was treated with insulin as an inpatient. - Hemoglobin A1c is ordered and pending. - Discharge on current diabetic regimen. No changes at this time. 4. Acute renal failure, acute. Admission serum creatinine 2.27, declined to 1.77 prior to discharge. Previous records from 2016 show peak serum creatinine of ~1.5 declined to 1.15. Current AK I seems likely due to hypovolemia caused by GI bleeding. - Encourage oral hydration - Patient was advised to stop furosemide for the next week until seen by primary care physician in follow-up. 5. Lower extremity edema, chronic. During previous hospitalization 2016 patient had echocardiogram that did know concentric thickening with a preserved ejection fraction. - Clinical follow-up with PCP 6. Hyperlipidemia, -Continue home statin 7. Hypertension, acute on chronic. Lisinopril was held temporarily due to his MURPHY. The pressure subsequently mary to 205/110. HAIM inhibitor was resumed and when necessary 1 time dose amlodipine given. - Follow-up with PCP. No changes to his chronic medications . Exam Vital Signs (Last) Date Time Temp Pulse Resp B/P Pulse Ox O2 Delivery O2 Flow Rate FiO2 11/22/16 09:40 36.7 75 16 186/91 97 Room Air Exam General: Generally healthy-appearing elderly man no acute distress HEENT: sclerae anicteric, oral mucosa moist Neck: no JVD Chest: clear to auscultation Cardiac: S1S2, no murmur Abdomen: BS normal, non-tender, no guarding. Extremities: 1+ edema in support stockings Neuro: A&O, cranial nerves symmetric, motor strength 5-/5, slow movements reportedly unsteady gait requiring walker, at baseline per patient. Test 11/20/16 15:48 11/21/16 04:27 11/22/16 08:10 Prothrombin Time 10.7sec (8.1-12.5) Prothromb Time International Ratio 1.00ratio Hold Khoury Top Tube Received (Received) Total Bilirubin 0.5mg/dL (0.0-1.2) Aspartate Amino Transf (AST/SGOT) 30U/L (0-50) Alanine Aminotransferase (ALT/SGPT) 58U/L (0-44) Alkaline Phosphatase 153U/L (25-160) Total Protein 6.8g/dL (6.4-8.4) Albumin 2.9g/dL (3.4-5.0) White Blood Count 6.2th/mm3 (3.8-10.1) Red Blood Count 3.10mil/mm3 (4.40-5.80) Hemoglobin 6.9g/dL (13.8-17.2) Hematocrit 22.4% (41.0-50.0) Mean Corpuscular Volume 72.3fL (81-100) Mean Corpuscular Hemoglobin 22.3pg (27.0-35.0) Mean Corpuscular Hemoglobin Concent 30.8% (32.0-37.0) Red Cell Distribution Width 21.2% (12.3-15.4) Platelet Count 168bil/L (150-400) Neutrophils (%) (Auto) 66.9% (40-74) Lymphocytes (%) (Auto) 20.4% (14-46) Monocytes (%) (Auto) 11.1% (4-12) Eosinophils (%) (Auto) 1.1% (0-5) Basophils (%) (Auto) 0.3% (0-3) Sodium Level 142mEq/L (134-144) Potassium Level 4.2mEq/L (3.5-5.2) Chloride Level 108mEq/L (97-108) Carbon Dioxide Level 22mmol/L (18-29) Blood Urea Nitrogen 34mg/dL (8-27) Creatinine 1.77mg/dL (0.76-1.27) Estimat Glomerular Filtration Rate 41mL/min (>59) Glucose Level 148mg/dL (60-99) Calcium Level 8.5mg/dL (8.5-10.1) Discharge Medications Discharge Medications Atorvastatin (Lipitor) 40 Mg Tablet 40 MG PO DAILY (Reported) Insulin Glargine (Lantus U100 Insulin Vial) 100 Unit/Ml Vial 12 UNIT SUBQ BID ( Reported) Additional med instructions You should stop taking furosemide (Lasix) until you are seen by your primary care doctor and follow-up. This is because your kidneys seem to be slightly dehydrated. Do not take aspirin or [id number] analgesic medicines except acetaminophen due to GI bleeding. Followup Plan Disposition: Home with home health nursing for edema and wound care Follow-up plan On temporary holiday from Lasix. To follow-up with PCP regarding future diuretic use in light of MURPHY. May be need additional hypertension medications. Discharge Diet: Diabetic Discharge Activity: No restrictions Patient Instructions Check your bowel movements for the appearance and evidence of blood. This should diminish gradually. Increase in maroon or jet black colored bowel movements, especially if you feel dizzy or faint; then return to emergency department. Follow-up Provider: Afsaneh Ybarra DO Provider: Deep Peterson MD Follow-up in: 2 weeks Time spent 35 minutes copies to: Deep Peterson MD; Afsaneh Ybarra Jeffrey W MD November 22, 2016 10:22
--- NOTE | 2016-11-22 18:24 | PCM.PNMED ---
Subjective Date of Service November 22, 2016 Subjective Fahad uH is a 71-year-old man with past medical history significant for anemia and diabetes mellitus presenting to the emergency department with one- day history of bright red blood per rectum, subsequently found to have acute GI blood loss complicating chronic anemia, and was admitted for further medical evaluation and treatment. Tolerating a full diet. There have been no further episodes of bleeding. The patient states he feels well and denies any abdominal pain. Discharge was planned for today, but he experienced hypertensive urgency with systolic blood pressures greater than 200. He is asymptomatic. Exam Vital Signs Vital Sign - Last Date Time Temp Pulse Resp B/P Pulse Ox O2 Delivery O2 Flow Rate FiO2 11/22/16 18:04 224/102 11/22/16 16:19 36.9 73 14 97 Room Air Intake and Output 11/21/16 11/21/16 11/22/16 Cumulative From/Thru 15:00 23:00 07:00 11/20/16 15:36 - 11/22/16 06:20 Intake Total 400 ml 1694 ml 300 ml 7421 ml Output Total 850 ml 600 ml 4450 ml Balance 400 ml 844 ml -300 ml 2971 ml Intake Oral 800 ml 300 ml 5100 ml IV Total 400 ml 894 ml 2021 ml Packed Cells 300 ml Output Urine Total 850 ml 600 ml 1450 ml Urine/Stool Mix 3000 ml # Voids 2 2 # Bowel Movements 1 1 Exam General: Healthy-appearing, no acute distress HEENT: sclerae anicteric, oral mucosa moist Neck: no JVD Chest: clear to auscultation Cardiac: S1S2, no murmur Abdomen: BS normal, non-tender Extremities: 1+ edema, support hose in place Neuro: A&O, cranial nerves symmetric, motor strength 5/5, some trunk weakness IVs and Medications Medications Reviewed: Medications were reviewed in detail Lab and Diagnostics Result Diagram: 11/22/16 1510 11/22/16 0810 Additional Diagnostics EGD and Colonoscopy findings: IMPRESSION: Food debris in the fundus suggestive of gastroparesis. IMPRESSION: Ascending colon polyp. A few scattered diverticula in the left side of the colon. Small internal hemorrhoids. No old or fresh blood was seen on exam. Deep Peterson MD 11/21/16 0750 Assessment & Plan 1. Acute gastrointestinal bleed, acute, present on admission. Based on bright red blood lower GI bleed appears more likely cause of patient's condition. Endoscopy was unrevealing. He had minimal additional stool output during hospitalization. No evidence of significant ongoing bleeding. Plan for GI to follow-up. - Contact [facility] clinic for follow-up with Dr. Soriano in 1-2 weeks. 2. Anemia, acute on chronic. Baseline hemoglobin is approximately 7.5-8 due to chronic disease anemia. Admission hemoglobin was 7.0. Subsequent values were 7.8 and 6.9. There was no clinical evidence of active bleeding. He received 1 unit blood transfusion today, with follow-up hemoglobin 8.2 . 3. Diabetes mellitus type II uncontrolled. Blood sugar at time of admission approximate 400. He was treated with insulin as an inpatient. - Hemoglobin A1c is ordered and pending. - Discharge on current diabetic regimen. No changes at this time. 4. Acute renal failure, acute. Admission serum creatinine 2.27, declined to 1.77 prior to discharge. Previous records from 2016 show peak serum creatinine of ~1.5 declined to 1.15. Current AK I seems likely due to hypovolemia caused by GI bleeding. - Encourage oral hydration 5. Lower extremity edema, chronic. During previous hospitalization 2016 patient had echocardiogram that did know concentric thickening with a preserved ejection fraction. - Clinical follow-up with PCP 6. Hyperlipidemia, -Continue home statin 7. Hypertension, acute on chronic. He is known to have resistant hypertension. Lisinopril 40 mg daily with Lasix 40 mg daily was held temporarily due to his MURPHY. The pressure subsequently mary to 205/110. Lisinopril 20 mg resumed, subsequent blood pressure 205/110. Received additional 2.5 mg Vasotec IV with amlodipine 5 mg 1. Subsequent systolic blood pressure 225. - Continue lisinopril 40 mg daily - Start carvedilol - Holding Lasix due to AK I in setting of GI blood loss, but may need to resume diuretic if no blood pressure improvement. Anticipate discharge on 11/23 if blood pressure is stabilized. VTE Mechanical Devices: Intermittant Pneumatic CD Resuscitation Status: CPR: Attempt Resuscitation Time spent 40 minutes Edgardo Chávez MD November 22, 2016 18:24
[2016-11-22] MEDS ORDERED: DiphenOXYlate-Atropine 2.5 mg-0.025 mg Tablet PO PRN (18:30)
--- NOTE | 2016-11-22 22:03 | PCM.PNMED ---
Subjective Date of Service November 22, 2016 Subjective states he feels well no further bleeding tolerating po Exam Vital Signs Vital Sign - Last Date Time Temp Pulse Resp B/P Pulse Ox O2 Delivery O2 Flow Rate FiO2 11/22/16 20:42 36.5 76 16 203/95 98 Room Air Intake and Output 11/21/16 11/21/16 11/22/16 Cumulative From/Thru 15:00 23:00 07:00 11/20/16 15:36 - 11/22/16 06:20 Intake Total 400 ml 1694 ml 300 ml 7421 ml Output Total 850 ml 600 ml 4450 ml Balance 400 ml 844 ml -300 ml 2971 ml Intake Oral 800 ml 300 ml 5100 ml IV Total 400 ml 894 ml 2021 ml Packed Cells 300 ml Output Urine Total 850 ml 600 ml 1450 ml Urine/Stool Mix 3000 ml # Voids 2 2 # Bowel Movements 1 1 Exam gen-oriented and appropriate heent- pallor presenr resp-clear bilaterally cvs-rrr abdomen- soft , non tender, no hepatspleenomegaly ext- edema present Lab and Diagnostics Result Diagram: 11/22/16 1510 11/22/16 0810 Additional Diagnostics EGD and Colonoscopy findings: IMPRESSION: Food debris in the fundus suggestive of gastroparesis. IMPRESSION: Ascending colon polyp. A few scattered diverticula in the left side of the colon. Small internal hemorrhoids. No old or fresh blood was seen on exam. Deep Peterson MD 11/21/16 0750 Assessment & Plan Rectal bleeding -no findings on endoscopy to explain rectal bleeding other than small internal hemorrhoids -no further bleeding, Chronic microcytic anemia -previous iron studies done1 year ago when he was documented with microcytic anemia were normal -no iron studies done on this admission -follow H/H -follow up in Gi clinic in 2 weeks Ascending colon polyp -await pathology results VTE Mechanical Devices: Intermittant Pneumatic CD Resuscitation Status: CPR: Attempt Resuscitation Deep Peterson MD November 22, 2016 22:03
[2016-11-23 03:04] VITALS: BP 178/89; PULSE 75; RESP 16; O2SAT 100
--- NOTE | 2016-11-23 05:34 | NUR ---
BP BP at start of shift was 203/95. Checked on both right and left arms. Given new med Coreg and SBP has been 180/170. Denies symptoms with this. Up to bathroom with 1 assist. No pain. No further signs of bleeding. Family and patient declined use of medical resident with assessment.
[2016-11-23 07:30] VITALS: PULSE 70
[2016-11-23 08:11] LABS: APPEARANCE,URINE CLEAR (CLEAR,HAZY); COLOR,URINE STRAW (YELLOW); OCCULT BLOOD,URINE SMALL (NEGATIVE); UROBILINOGEN,URINE NORMAL (NORMAL)
[2016-11-23] MEDS ORDERED: Lisinopril 40 Tablet PO SCH (08:30)
[2016-11-23] MEDS: 0.9% Sodium Chloride 250 ML IV SCH (08:55)
[2016-11-23 09:05] VITALS: BP 164/89; PULSE 81; RESP 17; O2SAT 98
[2016-11-23] MEDS: Pantoprazole 40 mg ER24 Tablet PO SCH (09:20)
[2016-11-23] MEDS: Insulin LISPRO 300 Unit/3 mL Inj SUBQ SCH ×2 (09:20→11:44)
[2016-11-23] MEDS ORDERED: Insulin GLARgine 100 Unit/mL Syringe SUBQ SCH (09:30)
--- NOTE | 2016-11-23 10:41 | PATH ---
SURGICAL PATHOLOGY Attending Physician:Evelin Smyth CASE STATUS: Signed Out PATIENT NAME: TRICIA BLACK PID: [id number] : 1945 DATE COLLECTED:11/21/2016 00:00 SPECIMEN: Colon, Biopsy CLINICAL HISTORY: 1. ASCENDING COLON POLYP FINAL DIAGNOSIS: 1.ASCENDING COLON POLYP: TUBULAR ADENOMA. ICD10 D12.2 GROSS DESCRIPTION: The specimen is received in one formalin filled container labeled with the patient's name, sublabeled "ascending colon polyp" and consists of 2 portions of tissue which aggregate to 0.2 x 0.2 x 0.2 CM. The specimen is entirely submitted in one cassette. 11/22/2016 [facility] MICRO DESCRIPTION: See diagnosis. ICD-9 CODES: CPT CODES: 1: 20581 Electronically Signed Out Erika Zhu MD [facility] Pathology [facility], [place] [address] Technical component performed at [facility], [address] [place] [address] Ave[address], [place], [address]
[2016-11-23 11:16] VITALS: PULSE 72
--- NOTE | 2016-11-23 11:19 | PCM.PNMED ---
Subjective Date of Service November 23, 2016 Subjective GI progress note Patient underwent EGD and colonoscopy on November 21 due to GI bleed. Polyp was removed and the ascending colon was note of small internal hemorrhoids. Today the patient denies any additional hematochezia/melena, abdominal pain, nausea/ vomiting, fevers, chills, chest pain, shortness of breath, dizziness, or other review of systems. The patient's H&H yesterday initially declined to 6.9 from 7.8 the day before, but recheck in the afternoon had a hemoglobin of 8.2. Hemoglobin was not checked this morning. Exam Vital Signs Vital Sign - Last Date Time Temp Pulse Resp B/P Pulse Ox O2 Delivery O2 Flow Rate FiO2 11/23/16 09:05 37.4 81 17 164/89 98 Room Air Intake and Output 11/22/16 11/22/16 11/23/16 Cumulative From/Thru 15:00 23:00 07:00 11/20/16 15:36 - 11/23/16 05:31 Intake Total 400 ml 575 ml 520 ml 8916 ml Output Total 650 ml 5100 ml Balance 400 ml 575 ml -130 ml 3816 ml Intake Oral 575 ml 5675 ml IV Total 100 ml 520 ml 2641 ml Packed Cells 300 ml 600 ml Output Urine Total 650 ml 2100 ml Urine/Stool Mix 3000 ml # Voids 2 4 # Bowel Movements 2 3 IVs and Medications Medications Reviewed: Medications were reviewed in detail Lab and Diagnostics Result Diagram: 11/22/16 1510 11/22/16 0810 Additional Diagnostics EGD and Colonoscopy findings: IMPRESSION: Food debris in the fundus suggestive of gastroparesis. IMPRESSION: Ascending colon polyp. A few scattered diverticula in the left side of the colon. Small internal hemorrhoids. No old or fresh blood was seen on exam. Deep Peterson MD 11/21/16 0750 Assessment & Plan Rectal bleeding -no findings on endoscopy to explain rectal bleeding other than small internal hemorrhoids -no further bleeding, Chronic microcytic anemia -previous iron studies done1 year ago when he was documented with microcytic anemia were normal; no iron studies this admission -Ordered H&H this morning -follow up in Gi clinic in 2 weeks Ascending colon polyp -Path report on the ascending colon polyp identified at a tubular adenoma > 10mm ; patient should have follow-up colonoscopy in 3 years. VTE Mechanical Devices: Intermittant Pneumatic CD Resuscitation Status: CPR: Attempt Resuscitation Attending Statement pt seen and examined agree with Dr Almaraz's note Manoj Beckett DO November 23, 2016 11:19 Deep Peterson MD Dec 07, 2016 15:00
[2016-11-23] MEDS ORDERED: HYG25 PO (12:15)
[2016-11-23] MEDS ORDERED: CARV25TA2 PO (12:15)
--- NOTE | 2016-11-23 12:22 | PCM.DIMED ---
Discharge Instructions Date of Service November 23, 2016 Dates of Hospitalization November 20, 2016 at 18:12 Discharge Diagnosis Discharge Diagnosis Acute blood loss anemia; probable lower GI bleeding; acute kidney injury; acute kidney injury; accelerated hypertension; type II diabetes mellitus; chronic disease anemia Medication Instructions Additional med instructions #1 Do not take aspirin or ijvf-kes-seqemxx pain medicines except acetaminophen due to GI bleeding. #2 You should stop taking furosemide (Lasix). Two new medicines prescribed for your high blood pressure including a different diuretic (water pill) named chlorthalidone, which may be used instead of furosemide to help with your leg swelling. #3 Your hemoglobin A1c test for diabetes is 9.6%. This indicates that you need increases in your diabetes medication, and further efforts to reduce the amount of carbohydrates that you eat. We recommend that you increase your Lantus ( insulin glargine) to 32 units per day either taken and one shot or divided into 2 doses of 16 units each. You should see her primary care doctor for further increases in adjustments of diabetes medications. Diet Discharge Diet: Diabetic Activity Discharge Activity: No restrictions Call your provider Call your provider for: Bleeding (return to emergency department if you experience large volume bleeding or faintness.) Patient Instructions Patient Instructions Check your bowel movements for the appearance and evidence of blood. If you see an increase in maroon-colored or jet black-colored bowel movements, especially if you feel dizzy or faint; then return to emergency department. Follow-up plan To follow-up with PCP regarding hypertension and diabetes within 1 week. Follow up with GI clinic in approximately 2 weeks. Follow-up Provider: Afsaneh Ybarra DO Follow-up with PCP in: 1 week (call tomorrow for a post-hospital follow-up appointment within 1 week.) Provider: Deep Peterson MD Follow-up in: 2 weeks Edgardo Chávez MD November 23, 2016 12:22
[2016-11-23 12:30] VITALS: BP 165/84; PULSE 85; RESP 18; O2SAT 96
--- NOTE | 2016-11-23 13:49 | PCM.DC.MED ---
Discharge Summary Date of Service November 23, 2016 Dates of Hospitalization Date of Hospital Admission November 20, 2016 at 18:12 Date of Discharge: November 22, 2016 Providers: Admitting Physician: Guru Jean Baptiste DO Primary Care Physician: Afsaneh Ybarra DO Attending Physician: Guru Jean Baptiste DO Diagnosis at Time of Discharge Diagnosis at Time of Discharge Acute blood loss anemia; probable lower GI bleeding; acute kidney injury; acute kidney injury; accelerated hypertension; type II diabetes mellitus; chronic disease anemia Consultations Gastroenterology: Rectal bleeding -no findings on endoscopy to explain rectal bleeding other than small internal hemorrhoids -no further bleeding, Chronic microcytic anemia -previous iron studies done1 year ago when he was documented with microcytic anemia were normal -no iron studies done on this admission -follow H/H -follow up in Gi clinic in 2 weeks Ascending colon polyp -await pathology results Deep Peterson MD Wound Care - R Posterior Calf wound dressing. . Procedures Other Diagnostics EGD and Colonoscopy findings: IMPRESSION: Food debris in the fundus suggestive of gastroparesis. IMPRESSION: Ascending colon polyp. A few scattered diverticula in the left side of the colon. Small internal hemorrhoids. No old or fresh blood was seen on exam. Deep Peterson MD 11/21/16 7100 Brief History History of Present Illness (per admission note): Patient is 71-year-old male past medical history significant for diabetes mellitus poorly controlled in addition to previously noted anemia presenting to emergency department earlier today for multiple episodes of bright red blood per rectum noted with stool which started last night. Denies any abdominal pain during that process or any other acute complaints. He has not been experiencing any lightheadedness chest pain shortness of breath palpitations. Additionally denies any fever chills or sweats. He denies any previous episodes of blood in his stool. He is not on any blood thinning medication, does not suffer from severe reflux, and has no past history of known gastric intestinal conditions. He does suffer from diabetes which is known to be poorly controlled, additionally suffers from lower extremity swelling but he is not aware of any cardiac conditions. There was no other acute complaints at this time. States he is feeling overall pretty well, though when pressed admits perhaps a little more weak than usual. . Hospital Course #. Acute gastrointestinal bleed, acute, present on admission. Based on bright red blood lower GI bleed appears more likely cause of patient's condition. Endoscopy was unrevealing. He had minimal additional stool output during hospitalization. No evidence of significant ongoing bleeding. Plan for GI to follow-up. - Contact [facility] GI clinic for follow-up with Dr. Soriano in 1-2 weeks. #. Anemia, acute on chronic. Baseline hemoglobin is approximately 7.5-8.0 due to chronic disease anemia. Admission hemoglobin was 7.0. Subsequent values were 7.8 and 6.9. There was no clinical evidence of active bleeding. He received 1 unit blood transfusion on the day of discharge, with follow-up hemoglobin 8.2 at time of discharge. #. Hypertension, acute on chronic. Lisinopril and Lasix were held temporarily due to his MURPHY. The pressure subsequently mary to 220/110. HAIM inhibitor was resumed but inadequate. Plan discharge delayed by one day. Carvedilol- chlorthalidone initiated. Blood pressure 165/84 prior to discharge - Continue lisinopril 40 mg daily - Carvedilol 25 mg twice a day added - Chlorthalidone 25 mg added #. Diabetes mellitus type II uncontrolled. Blood sugar at time of admission approximate 400. He was treated with insulin as an inpatient. - Hemoglobin A1c is 9.6% - Recommend to increase Lantus from prior dose of 12 units twice a day to 32 units daily (or 16 units twice a day, if he prefers) - According to our medication reconciliation he is not taking metformin, but PCP may consider doing so #. Acute renal failure, acute. Admission serum creatinine 2.27, declined to 1.77-1.86 prior to discharge. Previous records from 2016 show peak serum creatinine of ~1.5 declined to 1.15. Current AK I seems likely due to hypovolemia caused by GI bleeding; possibly progression of underlying CK D. - Continue lisinopril which is indicated and CKD - Follow-up with primary care provider in one week with further monitoring of electrolyte panel and consideration of nephrology consult #. Lower extremity edema, chronic. During previous hospitalization 2016 patient had echocardiogram that did know concentric thickening with a preserved ejection fraction. - Discontinue furosemide, and preference for antihypertensive diuretic chlorthalidone - Clinical follow-up with PCP #. Hyperlipidemia, -Continue home statin Exam Vital Signs (Last) Date Time Temp Pulse Resp B/P Pulse Ox O2 Delivery O2 Flow Rate FiO2 11/23/16 12:30 36.6 85 18 165/84 96 Room Air Exam General: Healthy-appearing, comfortable, no acute distress HEENT: sclerae anicteric, oral mucosa moist Neck: no JVD Chest: clear to auscultation Cardiac: S1S2, regular Abdomen: BS normal, non-tender Extremities: 1+ edema Neuro: A&O, cranial nerves symmetric, motor strength 5/5, coordination normal Test 11/20/16 15:48 11/21/16 04:27 11/22/16 08:10 11/23/16 07:17 Prothrombin Time 10.7sec (8.1-12.5) Prothromb Time International Ratio 1.00ratio Hemoglobin A1c 9.6% (4.8-5.6) Hold Khoury Top Tube Received (Received) Total Bilirubin 0.5mg/dL (0.0-1.2) Aspartate Amino Transf (AST/SGOT) 30U/L (0-50) Alanine Aminotransferase (ALT/SGPT) 58U/L (0-44) Alkaline Phosphatase 153U/L (25-160) Total Protein 6.8g/dL (6.4-8.4) Albumin 2.9g/dL (3.4-5.0) White Blood Count 6.2th/mm3 (3.8-10.1) Red Blood Count 3.10mil/mm3 (4.40-5.80) Mean Corpuscular Volume 72.3fL (81-100) Mean Corpuscular Hemoglobin 22.3pg (27.0-35.0) Mean Corpuscular Hemoglobin Concent 30.8% (32.0-37.0) Red Cell Distribution Width 21.2% (12.3-15.4) Platelet Count 168bil/L (150-400) Neutrophils (%) (Auto) 66.9% (40-74) Lymphocytes (%) (Auto) 20.4% (14-46) Monocytes (%) (Auto) 11.1% (4-12) Eosinophils (%) (Auto) 1.1% (0-5) Basophils (%) (Auto) 0.3% (0-3) Urine Color Straw (YELLOW) Urine Appearance Clear (CLEAR,HAZY) Urine pH 5.0 (5.0-8.0) Urine Specific [place] 1.020 (1.003-1.035) Urine Protein 30mg/dL (NEG,TRACE) Urine Glucose (UA) 250mg/dL (NEGATIVE) Urine Ketones Negativemg/dL (NEGATIVE) Urine Occult Blood Small (NEGATIVE) Urine Nitrite Negative (NEGATIVE) Urine Bilirubin Negative (NEGATIVE) Urine Urobilinogen Normalmg/dL (NORMAL) Urine Leukocyte Esterase Trace (NEGATIVE) Urine RBC 3-10/hpf (0-2) Urine WBC 0-5/hpf (0-5) Urine Epithelial Cells Few/hpf (NONE-MOD) Urine Crystals Amorphous urates (NONE Urine Bacteria Few/hpf (NONE-FEW) Urine Hyaline Casts Rare/lpf (NONE) Urine Granular Casts None seen (NONE SEEN) Urine Waxy Casts None seen (NONE SEEN) Urine Red Blood Cell Casts None seen (NONE SEEN) Urine White Blood Cell Casts None seen (NONE SEEN) Urine Mucus Present (None Seen) Urine Trichomonas None seen (NONE SEEN) Urine Yeast None (NONE SEEN) Urinalysis Comment None Urine Culture Reflexed Indicated Test 11/23/16 11:30 11/23/16 12:20 Hemoglobin 8.3g/dL (13.8-17.2) Hematocrit 26.3% (41.0-50.0) Sodium Level 140mEq/L (134-144) Potassium Level 3.8mEq/L (3.5-5.2) Chloride Level 105mEq/L (97-108) Carbon Dioxide Level 24mmol/L (18-29) Blood Urea Nitrogen 31mg/dL (8-27) Creatinine 1.86mg/dL (0.76-1.27) Estimat Glomerular Filtration Rate 38mL/min (>59) Glucose Level 186mg/dL (60-99) Calcium Level 8.7mg/dL (8.5-10.1) Discharge Medications Discharge Medications Atorvastatin (Lipitor) 40 Mg Tablet 40 MG PO DAILY (Reported) Carvedilol (Carvedilol) 25 Mg Tablet 25 MG PO BID Prescribed by: JOHNNY ZIMMER MD Chlorthalidone (Chlorthalidone) 25 Mg Tablet 25 MG PO DAILY Prescribed by: JOHNNY ZIMMER MD Insulin Glargine (Lantus U100 Insulin Vial) 100 Unit/Ml Vial 12 UNIT SUBQ BID ( Reported) Additional med instructions #1 Do not take aspirin or [id number]-yrlxvso pain medicines except acetaminophen due to GI bleeding. #2 You should stop taking furosemide (Lasix). Two new medicines prescribed for your high blood pressure including a different diuretic (water pill) named chlorthalidone, which may be used instead of furosemide to help with your leg swelling. #3 Your hemoglobin A1c test for diabetes is 9.6%. This indicates that you need increases in your diabetes medication, and further efforts to reduce the amount of carbohydrates that you eat. We recommend that you increase your Lantus ( insulin glargine) to 32 units per day either taken and one shot or divided into 2 doses of 16 units each. You should see her primary care doctor for further increases in adjustments of diabetes medications. Followup Plan Follow-up plan To follow-up with PCP regarding hypertension and diabetes within 1 week. Follow up with GI clinic in approximately 2 weeks. Discharge Diet: Diabetic Discharge Activity: No restrictions Patient Instructions Check your bowel movements for the appearance and evidence of blood. If you see an increase in maroon-colored or jet black-colored bowel movements, especially if you feel dizzy or faint; then return to emergency department. Follow-up Provider: Afsaneh Ybarra DO Follow-up with PCP in: 1 week (call tomorrow for a post-hospital follow-up appointment within 1 week.) Provider: Deep Peterson MD Follow-up in: 2 weeks Time spent 35 minutes copies to: Deep Peterson MD; Afsaneh Ybarra DO Johnny Zimmer MD November 23, 2016 13:49
--- NOTE | 2016-11-23 14:36 | NUR ---
Glargine, Discharge 929 - Discussed his care with Dr. Phipps, Dr. Chávez, and the rest of the multidisciplinary care team during morning rounds. Asked Dr. Phipps if she wanted labs ordered on him as none had been ordered for this morning. She and Dr. Chávez said they'd look into it. They were ordered later and obtained. 1055 - His dose of SubQ Glargine came up, but there was a bubble in the syringe. Spoke to a Pharmacist about it and she said she'd have Pharmacy send up another one. 1338 - Checked multiple times, but the Glargine had still not arrived. Non-administered it as it had not arrived, he was discharging in a few minutes, his blood glucose at lunch had decreased to 189, and his family would be giving him another dose this evening. 1415 - He discharged after discontinuing his IVx2 and his telemetry intact. Discussed and gave his discharge paperwork to his daughter. Answered her questions. His family helped him get dressed and then he was taken in a wheelchair down to the car where his family drove him home. They all thanked staff for his excellent care.
--- NOTE | 2016-11-23 14:46 | NUR ---
Social Work Note: Discharge Data& Assessment: Per pt is now medically ready for discharge. Pt was originally discharged yesterday 11/22/2016 however, pt ended up not being medically ready for discharge and the order was canceled. Fahad Hu is a 71 year old male admitted on 11/20/2016 for GI Bleed. Per pt is medically improved and ready to discharge. SW received order from for resume home health PT and RN 2x a week. SAGAR notified Carlos from [employer] , the company that pt is currently open with, and notified him of MD resume home health orders and pt discharge. Pt family aware and agreeable to plan, no other discharge needs identified. No other MD orders received. All updated and agreeable to plan. Pt family transporting pt home via POV. Plan: Per pt is medically ready to discharge home via POV with resume [employer] [facility] and PT 2X a week. No other MD orders received. All updated and agreeable to plan. Pt family transporting pt home via POV. No other discharge needs identified. YAYA Dennison
== END 2016-11-23 14:19 | disposition home or self-care (01) | DRG 378 ==
LOC: SED 15:32 → PCC 18:12
PROVIDERS: ADMIT Family Medicine; ATTEND Family Medicine
PROC: 30233N1 Transfusion of Nonautologous Red Blood Cells into Peripheral Vein, Percutaneous Approach (ICD-10-PCS; 2016-11-21)
PROC: 0DBK8ZX Excision of Ascending Colon, Via Natural or Artificial Opening Endoscopic, Diagnostic (ICD-10-PCS; principal; 2016-11-21 07:00)
PROC: 0DJ68ZZ Inspection of Stomach, Via Natural or Artificial Opening Endoscopic (ICD-10-PCS; 2016-11-21 07:00)
PROC: 30233N1 Transfusion of Nonautologous Red Blood Cells into Peripheral Vein, Percutaneous Approach (ICD-10-PCS; 2016-11-22)
DX: K92.2 Gastrointestinal hemorrhage, unspecified (principal); N17.9 Acute kidney failure, unspecified; D62 Acute posthemorrhagic anemia; Z79.4 Long term (current) use of insulin; E11.65 Type 2 diabetes mellitus with hyperglycemia; E78.5 Hyperlipidemia, unspecified; R60.0 Localized edema; I10 Essential (primary) hypertension; I16.0 Hypertensive urgency; D12.2 Benign neoplasm of ascending colon; K64.8 Other hemorrhoids; D64.9 Anemia, unspecified

== ENCOUNTER 2016-11-28 13:54 | Inpatient (IN) | payer MEDICARE ==
[~2016-11-28] VITALS: Ht 180.3 cm; Wt 83.2 kg
[2016-11-28] VITALS (7 sets, daily range): BP systolic 167–176; BP diastolic 77–92; PULSE 57–62; RESP 16–20; O2SAT 97–100
[~2016-11-28 13:54] MED LIST changes: +CARV25TA2 PO; -FUR20 PO; -GLPZ5T PO; +HYG25 PO; -LISI40TA PO; -LOM PO; -MECL-114 PO; -METF1000 PO; -METO25TA6 PO; -POTA10TA12 PO; -PREG100C PO; -TRIA10.8 NOSTRIL
[2016-11-28 14:35] LABS: EOSINOPHILS % (AUTO) 0.5 % (0-5)
--- NOTE | 2016-11-28 14:37 | DRSVH ---
PROCEDURE: X-RAY CHEST ONE VIEW, PORTABLE ([id number]) INDICATIONS: cough TECHNIQUE: One view of the chest was acquired. COMPARISON: [facility], CR, XR CHEST 1VW (PORTABLE), 10/21/2015, 18:25. FINDINGS: Surgical changes and devices: None. Lungs and pleura: No pleural effusions or pneumothorax. Shallow inspiration. New bibasilar atelectas is otherwise the lungs are clear. Mediastinum: Mediastinal contours appear normal. Heart size is normal. Bones and chest wall: No suspicious bony lesions. Overlying soft tissues appear unremarkable. IMPRESSION: Shallow inspiration causes bibasliar atelectasis left greater than right. Infection is mu ch less likely. Otherwise negative chest. Dictated by: Levi Malone M.D. on 11/28/2016 at 14:33 Approved by: Levi Malone M.D. on 11/28/2016 at 14:35
[2016-11-28 14:40] LABS: BASOPHILS % (AUTO) 0.3 % (0-3); MONOCYTES % (AUTO) 3.6 % (4-12); Mean Corpuscular Hemoglobin 22.8 pg (27.0-35.0); Mean Corpuscular Volume 73.2 fL (81-100); NEUTROPHILS % (AUTO) 82.5 % (40-74); Platelet Count 268 bil/L (150-400)
--- NOTE | 2016-11-28 14:41 | ED.REPORT ---
HPI-General Illness Date of Service November 28, 2016 ED Provider: History of Present Illness: 71-year-old male here for hypoglycemia and a cough for 2 days. Cough is with a colored sputum. His blood sugar this morning noted to be 36 by medics. He was lethargic at that time. NOw He complains of dizziness. He was given D50 in the field and is now 164 here in the emergency room and symptoms are resolving. He denies shortness of breath or chest pain. He was recently released from the hospital for GI bleed and acute kidney injury due to hypovolemia/diarrhea. He increased his Lantus upon discharge to 32 units a day. He still has been having high blood sugars until today when it was 36. Denies nausea or vomiting. He has a history of diarrhea and he has had this for 2 years and has gotten a little worse in the last few days. Denies abdominal pain or pain with urination. He does have a chronic wound on his right lower extremity that a home health nurse dresses for him. Family member states it is almost better. He has not had a fever infection here today his 35 Celsius. Nursing Notes Stated Complaint: HYPOGLYCEMIA Chief Complaint: General Complaint Nursing Notes Reviewed: Yes Allergies: Coded Allergies: No Known Allergies (Verified Allergy, Unknown, 09/27/16) Scheduled Atorvastatin (Lipitor) 40 Mg Tablet 40 MG PO HS Carvedilol (Carvedilol) 25 Mg Tablet 25 MG PO BID Chlorthalidone (Chlorthalidone) 25 Mg Tablet 25 MG PO DAILY Furosemide (Furosemide) 40 Mg Tablet 40 MG PO QAM Glipizide (Glipizide) 5 Mg Tablet 5 MG PO BIDWM Insulin Glargine (Lantus U100 Insulin Vial) 100 Unit/Ml Vial 12 UNIT SUBQ MORNING Insulin Glargine (Lantus U100 Insulin Vial) 100 Unit/Ml Vial 14 UNIT SUBQ QPM Lisinopril (Lisinopril) 40 Mg Tablet 20 MG PO QAM Pregabalin (Lyrica) 100 Mg Capsule 100 MG PO TID Scheduled PRN Acetaminophen (Acetaminophen) 325 Mg Tablet 650 MG PO Q4H PRN PRN For Fever Fluticasone Propionate (Fluticasone Propionate) 50 Mcg/Actuation [place].susp 1-2 SPRAYS NS DAILY PRN PRN For Congestion General Time Seen by MD: 14:27 Chief Complaint Cough, Dizziness, Other (hypoglycemia) Hx Obtained From: Patient, Spanish Speaking Babysitter Arrived By: Ambulance Onset Occurred: 2 days ago Severity: Current: No pain currently Severity: Maximum: No pain Associated with: Reports: Cough, Dizziness, Weakness, Denies: Abdominal pain, Chest pain, Diaphoresis, Difficulty breathing, Difficulty swallowing, Fever, Nausea, Vomiting Pertinent Negative: Pt denies other symptoms Recent Healthcare: Recent doctor visit, Recent hospitalization Similar Sx Previous: No Past Medical History Past Medical History Notes: Patient is full code Past Medical History Peripheral neuropathy DM, HTN, diarrhea wound RLE Reports: Diabetes mellitus, Hypertension Past Surgical History R hip replacement Smoking History Never Smoker Social History Alcohol Use: 1-3 per week Ambulatory Status Crutches Review of Systems hypoglycemia, hypothermia Full Review of Systems Constitutional: Reports: Fatigue, Malaise, Denies: Chills, Fever Eyes: Denies: Discharge bilateral, Eye pain bilateral, Redness bilateral Ears / Nose / Throat: Denies: Nasal congestion, Throat pain, Throat swelling Respiratory: Reports: Prod cough, green, Denies: Dyspnea on exertion Cardiovascular: Reports: Edema, Denies: Chest pain, Dyspnea on exertion GI: Reports: Diarrhea, Denies: Abdominal pain, Nausea Male: Denies Dysuria Musculoskeletal: Reports: Extremity swelling, Denies: Back pain, Extremity pain Skin: Denies Diaphoresis Psychiatric: Denies: Agitation, Anxiety Complete sys rev & neg: except as marked. Physical Exam Vital Signs Vital Signs Date Time Temp Pulse Resp B/P Pulse Ox O2 Delivery O2 Flow Rate FiO2 11/28/16 17:45 58 20 167/89 100 Room Air 11/28/16 17:11 59 20 169/92 98 Room Air 11/28/16 16:19 59 20 171/87 98 Room Air 11/28/16 15:47 35.6 11/28/16 14:13 35.2 57 20 176/84 97 Room Air Initial VS: Reviewed, Vital signs abnormal General/Constitutional: Well-developed, Well-nourished Respiratory: Breath sounds normal, Clear to auscultation, No respiratory distress Cardiovascular: Regular rate & rhythm, Heart sounds normal, Intact distal pulses Abdomen / GI: Soft, Non-tender, No guarding, No rebound, No distention Back: No CVA tenderness Skin: Warm, Dry, No cyanosis Neurologic: Alert, Oriented, Nonfocal Psychiatric: Mood/affect normal, Behavior normal, Normal thought content General/Constitutional: Awake, Alert, Well appearing Head / Eyes: Normocephalic ENT: Airway patent, Mucous membranes moist, Pharynx NL Respiratory / Chest: Atraumatic Rales / Rhonchi: Positive: Rhonchi coarse L, Rhonchi coarse R Cardiovascular: Heart rate NL, Regular rhythm, Heart sounds NL, Cap refill not delayed, Peripheral circulation NL Abdomen: Non-tender, No guarding, No rebound Left Foot: Positive: Swelling present... (Mild), Negative: Erythema present, Tenderness present..., Warmth present Interpretation & Diagnostics Lab Results Interpretation Result Diagram: 11/28/16 1410 11/28/16 1410 Test 11/28/16 14:10 11/28/16 15:59 White Blood Count 5.8th/mm3 (3.8-10.1) Red Blood Count 3.81mil/mm3 (4.40-5.80) Hemoglobin 8.7g/dL (13.8-17.2) Hematocrit 27.9% (41.0-50.0) Mean Corpuscular Volume 73.2fL (81-100) Mean Corpuscular Hemoglobin 22.8pg (27.0-35.0) Mean Corpuscular Hemoglobin Concent 31.2% (32.0-37.0) Red Cell Distribution Width 21.9% (12.3-15.4) Platelet Count 268bil/L (150-400) Neutrophils (%) (Auto) 82.5% (40-74) Lymphocytes (%) (Auto) 12.6% (14-46) Monocytes (%) (Auto) 3.6% (4-12) Eosinophils (%) (Auto) 0.5% (0-5) Basophils (%) (Auto) 0.3% (0-3) Prothrombin Time 11.1sec (8.1-12.5) Prothromb Time International Ratio 1.04ratio Sodium Level 136mEq/L (134-144) Potassium Level 3.6mEq/L (3.5-5.2) Chloride Level 105mEq/L (97-108) Carbon Dioxide Level 17mmol/L (18-29) Blood Urea Nitrogen 43mg/dL (8-27) Creatinine 1.98mg/dL (0.76-1.27) Estimat Glomerular Filtration Rate 36mL/min (>59) Glucose Level 175mg/dL (60-99) Lactic Acid Level 0.7mmol/L (0.4-2.0) Calcium Level 8.9mg/dL (8.5-10.1) Magnesium Level 2.5mg/dL (1.6-2.6) Total Bilirubin 0.3mg/dL (0.0-1.2) Aspartate Amino Transf (AST/SGOT) 20U/L (0-50) Alanine Aminotransferase (ALT/SGPT) 31U/L (0-44) Alkaline Phosphatase 144U/L (25-160) Troponin T 0.071ug/L (0.0-0.011) Total Protein 7.7g/dL (6.4-8.4) Albumin 2.8g/dL (3.4-5.0) Thyroid Stimulating Hormone (TSH) 4.700uIU/mL (0.450-4.500) Free Thyroxine 1.28ng/dL (0.82-1.77) Urine Color Yellow (YELLOW) Urine Appearance Hazy (CLEAR,HAZY) Urine pH 5.0 (5.0-8.0) Urine Specific [place] 1.025 (1.003-1.035) Urine Protein 30mg/dL (NEG,TRACE) Urine Glucose (UA) Negativemg/dL (NEGATIVE) Urine Ketones Negativemg/dL (NEGATIVE) Urine Occult Blood Small (NEGATIVE) Urine Nitrite Negative (NEGATIVE) Urine Bilirubin Negative (NEGATIVE) Urine Urobilinogen Normalmg/dL (NORMAL) Urine Leukocyte Esterase Moderate (NEGATIVE) Urine RBC 0-2/hpf (0-2) Urine WBC 6-10/hpf (0-5) Urine Epithelial Cells None/hpf (NONE-MOD) Urine Crystals None seen (NONE SEEN) Urine Bacteria Moderate/hpf (NONE-FEW) Urine Hyaline Casts None/lpf (NONE) Urine Granular Casts None seen (NONE SEEN) Urine Waxy Casts None seen (NONE SEEN) Urine Red Blood Cell Casts None seen (NONE SEEN) Urine White Blood Cell Casts None seen (NONE SEEN) Urine Mucus None seen (None Seen) Urine Trichomonas None seen (NONE SEEN) Urine Yeast None (NONE SEEN) Urinalysis Comment None Urine Culture Reflexed Indicated X-Ray Interpretation Xray Interpretation: PROCEDURE: X-RAY CHEST ONE VIEW, PORTABLE ([id number]) INDICATIONS: cough TECHNIQUE: One view of the chest was acquired. COMPARISON: [facility], CR, XR CHEST 1VW (PORTABLE), 10/21/2015, 18:25. FINDINGS: Surgical changes and devices: None. Lungs and pleura: No pleural effusions or pneumothorax. Shallow inspiration. New bibasilar atelectasis otherwise the lungs are clear. Mediastinum: Mediastinal contours appear normal. Heart size is normal. Bones and chest wall: No suspicious bony lesions. Overlying soft tissues appear unremarkable. IMPRESSION: Shallow inspiration causes bibasliar atelectasis left greater than right. Infection is much less likely. Otherwise negative chest. Re-Eval/Medical Decision Med Decision/Clinical Course Discussed case, troponin, EKG with Dr. Leung admit for RULE out MA. Patient resting comfortably in bed denies any chest pain or breathing difficulty. He is feeling good. Blood pressure 146/55 heart rate 60. Looking back at his records his temperature is always low noted on 11/20/2016 it was 35.0 family states He always runs low. pcp Dr Ybarra Family also unaware of any CAD, maybe he has CHF, they are unsure 1732 Dr Bertrand will admit. Counseled Regarding: Diagnosis, Lab results, Need for admission Discharge & Departure Shift Change Sign-Out Laboratory Evaluation: Lab evaluation discussed Imaging Studies: Imaging discussed Response to Therapy: Improved Primary Impression: MURPHY (acute kidney injury) Additional Impressions: Diabetes mellitus type 2, uncontrolled Diabetes mellitus complication status: with hypoglycemia Diabetes mellitus complication detail: without coma Diabetes mellitus shelter insulin use: with middle or intermediate school principal use Qualified Code: E11.649 - Type 2 diabetes mellitus with hypoglycemia without coma Elevated troponin I level Hypertension Hypertension type: essential hypertension Qualified Code: I10 - Essential ( primary) hypertension Urinary tract infection Urinary tract infection type: acute cystitis Hematuria presence: without hematuria Qualified Code: N30.00 - Acute cystitis without hematuria Disposition: ADMITTED TO HOSPITAL Discharge Condition All VS Reviewed: Yes Condition: Stable Referrals: Afsaneh Ybarra DO (PCP) Duarte Bertrand EDSupervising Provider for APC: Cyrus Leung MD copies to: Cyrus Leung MD; Duarte Bertrand Linnea K ARNP November 28, 2016 14:41
[2016-11-28 14:42] LABS: INR 1.04 ratio
[2016-11-28 15:02] LABS: Magnesium 2.5 mg/dL (1.6-2.6)
[2016-11-28 15:07] LABS: TROPONIN T 0.071 ug/L (0.0-0.011)
[2016-11-28] MEDS ORDERED: 0.9% Sodium Chloride 1,000 ML IV ONE (15:20)
[2016-11-28 16:23] LABS: APPEARANCE,URINE HAZY (CLEAR,HAZY); COLOR,URINE YELLOW (YELLOW)
[2016-11-28 16:24] LABS: OCCULT BLOOD,URINE SMALL (NEGATIVE); UROBILINOGEN,URINE NORMAL (NORMAL)
[2016-11-28] MEDS ORDERED: INSU100V7 SUBQ (17:39)
[2016-11-28] MEDS ORDERED: LISI-567 PO (17:40)
[2016-11-28] MEDS ORDERED: Alum-Mag Hydrox-Simeth 30 mL Suspension PO PRN ×2 (17:40→18:25)
[2016-11-28] MEDS ORDERED: FURO40TA4 PO (17:40)
[2016-11-28] MEDS ORDERED: Ondansetron 2 mg/mL 2 mL Inj IVPUSH PRN ×2 (17:40→18:25)
[2016-11-28] MEDS ORDERED: PREG100C PO (17:41)
[2016-11-28] MEDS ORDERED: GLPZ5T PO (17:41)
[2016-11-28] MEDS ORDERED: Polyethylene Glycol (PEG) 17 Gm Powder PO PRN (18:25)
--- NOTE | 2016-11-28 18:28 | NUR ---
Admit [facility] Pt arrived transfer from ED at 1820 accompanied by , all belongings intact. Pt is on 2L O2, A&Ox3, currently on bedrest for weakness, is hypertensive and bradycardic. Pt is on telemetry. computer system technician verifying med rec right now. Care continues. Addendum: 11/28/16 at 1845 by GIOVANY LEON RN pt arrived on RA with O2 sats 98%, denies CP, denies SOB, tele SR with 1st degree AVB per nurse monitoring
--- NOTE | 2016-11-28 18:33 | PCM.HPMED ---
Subjective Date of Service November 28, 2016 Primary Provider: Admitting Physician: Duarte Bertrand Primary Care Physician: Afsaneh Ybarra DO Attending Physician: Duarte Bertrand Chief Complaint: lethargy and hypoglycemia History of Present Illness: 71-year-old male originally from [place] with past medical history significant for Insulin dependent diabetes mellitus who was discharged from this hospital just 5 days ago for suspected lower GI bleed and that time was noted to have evidence of acute kidney injury as well was sent home with recommendation to increase his Lantus dose from 12 to 16 units bid while still taking Glipizide despite MURPHY. Patient reports doing fairly well since his discharge home till last night when he was having some lower abdominal pain and recurrence of his chronic diarrhea. This morning he was very tired and sleepy and was having some visual hallucinations. His daughter went to wake him up around 11:00 AM and patient was minimally responsive. She checked his blood glucose and found it to be 56. EMS was called and after receiving an Amp of D50 patient's daughter reports that patient started becoming more "lucid" and awake. Today patient has been feeling cold but otherwise denies any fever or chills. He further denies any chest pain, SOB, nausea, vomiting, dysuria or polyuria. Patient's daughter notes that patient has a small ulceration of his scrotum which the patient attributes to having frequent loose stools and wearing diaper. Currently patient denies any further abdominal pain and says feels almost back to his usual self. He reports chronic neuropathy of his hands and feet for at least past year. Review of Systems: Constitutional: Negative, except as otherwise mentioned in the history above. Ophthalmologic: Negative, except as otherwise mentioned in the history above. Cardiovascular: Negative, except as otherwise mentioned in the history above. Respiratory: Negative, except as otherwise mentioned in the history above. Gastrointestinal: Negative, except as otherwise mentioned in the history above. Genitourinary: Negative, except as otherwise mentioned in the history above. Musculoskeletal: Negative, except as otherwise mentioned in the history above. Neurological: Negative, except as otherwise mentioned in the history above. Psychiatric: Negative, except as otherwise mentioned in the history above. Hematologic/Lymphatic: Negative, except as otherwise mentioned in the history above. Allergic/Immunologic: Negative, except as otherwise mentioned in the history above. Allergies Coded Allergies: No Known Allergies (Verified Allergy, Unknown, 3/27/17) Home Medications As per most recent discharge summary from 11/23/16: Atorvastatin (Lipitor) 40 Mg Tablet 40 MG PO DAILY (Reported) Carvedilol (Carvedilol) 25 Mg Tablet 25 MG PO BID Prescribed by: JOHNNY ZIMMER MD Chlorthalidone (Chlorthalidone) 25 Mg Tablet 25 MG PO DAILY Prescribed by: JOHNNY ZIMMER MD Insulin Glargine (Lantus U100 Insulin Vial) 100 Unit/Ml Vial 12 UNIT SUBQ BID ( Reported) Additional med instructions #1 Do not take aspirin or [id number] pain medicines except acetaminophen due to GI bleeding. #2 You should stop taking furosemide (Lasix). Two new medicines prescribed for your high blood pressure including a different diuretic (water pill) named chlorthalidone, which may be used instead of furosemide to help with your leg swelling. #3 Your hemoglobin A1c test for diabetes is 9.6%. This indicates that you need increases in your diabetes medication, and further efforts to reduce the amount of carbohydrates that you eat. We recommend that you increase your Lantus ( insulin glargine) to 32 units per day either taken and one shot or divided into 2 doses of 16 units each. You should see her primary care doctor for further increases in adjustments of diabetes medications. Exam Vital Signs & I/O Vital Sign- Last 8 Hours Date Time Temp Pulse Resp B/P Pulse Ox O2 Delivery O2 Flow Rate FiO2 11/28/16 17:45 58 20 167/89 100 Room Air 11/28/16 17:11 59 20 169/92 98 Room Air 11/28/16 16:19 59 20 171/87 98 Room Air 11/28/16 15:47 35.6 11/28/16 14:13 35.2 57 20 176/84 97 Room Air Lab & Micro Results Laboratory Tests Test 11/28/16 14:10 11/28/16 15:59 White Blood Count 5.8th/mm3 (3.8-10.1) Red Blood Count 3.81mil/mm3 (4.40-5.80) Hemoglobin 8.7g/dL (13.8-17.2) Hematocrit 27.9% (41.0-50.0) Mean Corpuscular Volume 73.2fL (81-100) Mean Corpuscular Hemoglobin 22.8pg (27.0-35.0) Mean Corpuscular Hemoglobin Concent 31.2% (32.0-37.0) Red Cell Distribution Width 21.9% (12.3-15.4) Platelet Count 268bil/L (150-400) Neutrophils (%) (Auto) 82.5% (40-74) Lymphocytes (%) (Auto) 12.6% (14-46) Monocytes (%) (Auto) 3.6% (4-12) Eosinophils (%) (Auto) 0.5% (0-5) Basophils (%) (Auto) 0.3% (0-3) Prothrombin Time 11.1sec (8.1-12.5) Prothromb Time International Ratio 1.04ratio Sodium Level 136mEq/L (134-144) Potassium Level 3.6mEq/L (3.5-5.2) Chloride Level 105mEq/L (97-108) Carbon Dioxide Level 17mmol/L (18-29) Blood Urea Nitrogen 43mg/dL (8-27) Creatinine 1.98mg/dL (0.76-1.27) Estimat Glomerular Filtration Rate 36mL/min (>59) Glucose Level 175mg/dL (60-99) Lactic Acid Level 0.7mmol/L (0.4-2.0) Calcium Level 8.9mg/dL (8.5-10.1) Magnesium Level 2.5mg/dL (1.6-2.6) Total Bilirubin 0.3mg/dL (0.0-1.2) Aspartate Amino Transf (AST/SGOT) 20U/L (0-50) Alanine Aminotransferase (ALT/SGPT) 31U/L (0-44) Alkaline Phosphatase 144U/L (25-160) Troponin T 0.071ug/L (0.0-0.011) Total Protein 7.7g/dL (6.4-8.4) Albumin 2.8g/dL (3.4-5.0) Urine Color Yellow (YELLOW) Urine Appearance Hazy (CLEAR,HAZY) Urine pH 5.0 (5.0-8.0) Urine Specific [place] 1.025 (1.003-1.035) Urine Protein 30mg/dL (NEG,TRACE) Urine Glucose (UA) Negativemg/dL (NEGATIVE) Urine Ketones Negativemg/dL (NEGATIVE) Urine Occult Blood Small (NEGATIVE) Urine Nitrite Negative (NEGATIVE) Urine Bilirubin Negative (NEGATIVE) Urine Urobilinogen Normalmg/dL (NORMAL) Urine Leukocyte Esterase Moderate (NEGATIVE) Urine RBC 0-2/hpf (0-2) Urine WBC 6-10/hpf (0-5) Urine Epithelial Cells None/hpf (NONE-MOD) Urine Crystals None seen (NONE SEEN) Urine Bacteria Moderate/hpf (NONE-FEW) Urine Hyaline Casts None/lpf (NONE) Urine Granular Casts None seen (NONE SEEN) Urine Waxy Casts None seen (NONE SEEN) Urine Red Blood Cell Casts None seen (NONE SEEN) Urine White Blood Cell Casts None seen (NONE SEEN) Urine Mucus None seen (None Seen) Urine Trichomonas None seen (NONE SEEN) Urine Yeast None (NONE SEEN) Urinalysis Comment None Urine Culture Reflexed Indicated Microbiology 11/28/16 Blood Culture, Received Pending 11/28/16 Urine Culture, Received Pending Result Diagram: 11/28/16 1410 11/28/16 1410 [facility] Peripheral neuropathy Diabetes mellitus Hypertension Anemia Legally blind Recent GI bleed of unclear source post EGD and Colonoscopy on 11/21/16 Chronic intermittent diarrhea for past 2 years. Surgical History R hip replacement Family History Both parents with diabetes Social History Hx Alcohol Use: Yes (occasional ) Hx Substance Use: No Hx Tobacco Use: No Smoking Status: Never Smoker Exam Vital Signs Vital Sign - Last Date Time Temp Pulse Resp B/P Pulse Ox O2 Delivery O2 Flow Rate FiO2 11/28/16 17:45 58 20 167/89 100 Room Air 11/28/16 15:47 35.6 General: Alert, Oriented X3, Cooperative, No Acute Distress Head: Normal Eyes: PERRLA, EOMI, Scleral Anicteric Nose: Mucous Membr Moist/[place] Mouth: Mucous Membr Moist/[place] Neck: Supple Chest & Lungs: Chest Wall Normal, Clear to auscultation & percussion Cardiovascular: Regular Rate/Rhythm Pulses: NL carotid, radial, femoral, DP, PT Abdomen: Non-tender, Non-distended, Normoactive bowel tones, Soft Genitialial: Normal (except small (about 1-2 mm) superficial ulceration of the scrotum) Extremities: No cyanosis/clubbing/edma bilat Neurological: Grossly Neurologically Intact, Cranial Nerves 2-12 Intact, Normal Speech Lymphatic: Other Lymph Nodes (no significant lymphadenopathy appareciated) Lab and Diagnostics Result Diagram: 11/28/16 1410 11/28/16 1410 X-Rays, CTs and MRIs Date of Service: 11/28/16 1409 PROCEDURE: X-RAY CHEST ONE VIEW, PORTABLE ([id number]) IMPRESSION: Shallow inspiration causes bibasliar atelectasis left greater than right. Infection is much less likely. Otherwise negative chest. Dictated by: Levi Malone M.D. on 11/28/2016 at 14:33 Approved by: Levi Malone M.D. on 11/28/2016 at 14:35 12-lead ECG NSR at about 70bpm. there is minimall ST elevation in the lateral leads but unchanged compared to the EKG from 11/20/16 Assessment & Plan 71-year-old male with past medical history significant for Insulin dependent diabetes mellitus who was discharged from this hospital just 5 days ago after suspected lower GI bleed and acute kidney injury presents today with acute hypoglycemia in setting of increased dose of Lantus since recent hospitalization while continuing with Glipizide despite MURPHY. He seems to have evidence of UTI also. # Acute UTI. Present on admission. - Start empiric IV Ceftriaxone (not started in ED) - Followup pending urine culture # Acute on chronic diarrhea, present on admission. - Unclear etiology with ongoing workup by GI as outpatient - Check Stool PCR - Continue with supportive care and hydration as needed # Acute hypoglycemia with history of diabetes mellitus, present prior to admission. - Likely due to increased dose of Lantus recently along with continued Glipizide despite recent MURPHY and exacerbated by underlying infection and UTI - Hold Lantus for now - Stop Glipizide - Cover with low dose ISS for now until certain sugars are stable # Acute hypothermia. Present on admission. - Likely due to underlying hypoglycemia and UTI - Continue with treatment noted above - Check TSH # Acute kidney injury, present on admission and Cr somewhat worse than last check less than one week ago. - Suspect likely at least partially pre-renal due to underlying diarrhea - Gentle IVF - Check renal U/S - Followup repeat labs in am - Avoid nephrotoxic medications including home dose diuretics (not clear to me why patient is on two different diuretics at all) # Mildly elevated Troponin, incidentally noted not admission blood work without any report of chest pain or dyspnea! - Possible demand ischemia and amplified by underlying MURPHY - Recheck Trop with morning labs - Check Echo - Follow on Tele # History of hypertension, poorly controlled on admission - Continue with home dose Carvedilol - Hold Lisinopril for now given MURPHY # Superficial scrotal ulcer - Wound care consult # Chronic anemia with recent history of GI bleed. - H/H is currently stable at the same level of recent hospitalization and discharge - Followup repeat labs in am Expected length of hospital stay is greater than 2 midnights and likely 2-3 days GI Prophylaxis: Proton Pump Inhibitor VTE Prophylaxis: SCDs Resuscitation Status: CPR: Attempt Resuscitation (discussed and verified with patient) Time spent 65 min Duarte Bertrand November 28, 2016 18:33
[2016-11-28] MEDS ORDERED: LISI40TA PO (18:39)
[2016-11-28] MEDS ORDERED: ACET325T51 PO (18:41)
[2016-11-28] MEDS ORDERED: FLUT15.88 NS (18:41)
[2016-11-28] MEDS ORDERED: 0.9% NaCl + KCl 20 mEq/L 1,000 ML IV ONE (19:10)
[2016-11-28] MEDS: cefTRIAXone Inj 2,000 MG in Dextrose 5% Minibag Plus 50 ML IV SCH (20:04)
--- NOTE | 2016-11-28 21:01 | NUR ---
[facility] signed
[2016-11-28] MEDS: Insulin Human REGular 300 Unit/3 mL Inj SUBQ SCH (23:13)
[2016-11-29] VITALS (8 sets, daily range): BP systolic 122–170; BP diastolic 73–90; PULSE 56–66; RESP 14–16; O2SAT 97–100
[2016-11-29 06:07] LABS: BASOPHILS % (AUTO) 0.4 % (0-3); EOSINOPHILS % (AUTO) 1.4 % (0-5); MONOCYTES % (AUTO) 9.3 % (4-12); Mean Corpuscular Hemoglobin 22.8 pg (27.0-35.0); Mean Corpuscular Volume 72.5 fL (81-100); NEUTROPHILS % (AUTO) 71.4 % (40-74); Platelet Count 269 bil/L (150-400)
[2016-11-29 06:36] LABS: Magnesium 2.5 mg/dL (1.6-2.6)
[2016-11-29 06:39] LABS: TROPONIN T 0.045 ug/L (0.0-0.011)
--- NOTE | 2016-11-29 07:09 | NUR ---
Admit Admission assessment and screening completed. Med-Rec completed by pharmacist. Ulcer wounds POA. Right lateral and posterior lower extremity, left anterior ac, and left great toe. Dressing removed and wounds examined. [facility] Wound consult ordered by . POC discussed and reviewed with pt and spouse. They verbalize understanding. No overt complications noted.
[2016-11-29] MEDS: Insulin Human REGular 300 Unit/3 mL Inj SUBQ SCH ×4 (09:22→21:54)
--- NOTE | 2016-11-29 09:59 | PCM.PNMED ---
Subjective Date of Service November 29, 2016 Subjective denies any new issues/complaints Exam Vital Signs Vital Sign - Last Date Time Temp Pulse Resp B/P Pulse Ox O2 Delivery O2 Flow Rate FiO2 11/29/16 09:43 36.6 64 16 170/90 98 Room Air Intake and Output 11/28/16 11/28/16 11/29/16 Cumulative From/Thru 15:00 23:00 07:00 11/28/16 14:13 - 11/29/16 06:23 Intake Total 1000 ml 722 ml 1722 ml Balance 1000 ml 722 ml 1722 ml IV Total 1000 ml 722 ml 1722 ml Exam General: Alert, Cooperative, No Acute Distress Head: Normal Eyes: PERRLA, EOMI, Scleral Anicteric Nose: Mucous Membr Moist/Dolores Mouth: Mucous Membr Moist/Dolores Neck: Supple Chest & Lungs: Chest Wall Normal, Clear to auscultation bilat Cardiovascular: Regular Rate/Rhythm Pulses: NL DP, PT Abdomen: Non-tender, Non-distended, Normoactive bowel tones, Soft Genitalia: Normal (except small (about 1-2 mm) superficial ulceration of the scrotum) Extremities: No cyanosis/clubbing/edema bilat Neurological: Grossly Neurologically Intact, Normal Speech Lymphatic: Other Lymph Nodes (no significant lymphadenopathy appreciated) IVs and Medications Medications Reviewed: Medications were reviewed in detail Lab and Diagnostics Result Diagram: 11/29/1650911/29/16 0510 X-Rays, CTs and MRIs Date of Service: 11/28/16 1409 PROCEDURE: X-RAY CHEST ONE VIEW, PORTABLE ([id number]) IMPRESSION: Shallow inspiration causes bibasliar atelectasis left greater than right. Infection is much less likely. Otherwise negative chest. Dictated by: Levi Malone M.D. on 11/28/2016 at 14:33 Approved by: Levi Malone M.D. on 11/28/2016 at 14:35 12-lead ECG NSR at about 70bpm. there is minimall ST elevation in the lateral leads but unchanged compared to the EKG from 11/20/16 Assessment & Plan 71-year-old male with past medical history significant for Insulin dependent diabetes mellitus who was discharged from this hospital just 5 days ago after suspected lower GI bleed and acute kidney injury presents today with acute hypoglycemia in setting of increased dose of Lantus since recent hospitalization while continuing with Glipizide despite MURPHY. He seems to have evidence of UTI also. # Acute UTI. Present on admission. - Continue with empiric IV Ceftriaxone (day 2) - Followup pending urine culture # Acute kidney injury, present on admission. Ongoing and Cr rising - Suspect likely at least partially pre-renal due to underlying diarrhea - Continue with gentle IVF - Check renal U/S - Followup repeat labs in am. If not improving or worse consider nephrology consult. - Avoid nephrotoxic medications including home dose diuretics (not clear to me why patient is on two different diuretics at all) # Acute on chronic diarrhea, present on admission. - Unclear etiology with ongoing workup by GI as outpatient - Check Stool PCR - Continue with supportive care and hydration as needed # Acute hypoglycemia with history of diabetes mellitus, present prior to admission. - Likely due to increased dose of Lantus recently along with continued Glipizide despite recent MURPHY and exacerbated by underlying infection and UTI - Hold Lantus for now - Stop Glipizide - Cover with low dose ISS for now until certain sugars are stable # Acute hypothermia. Present on admission. Resolved - Likely due to underlying hypoglycemia and UTI - Continue with treatment noted above - Check TSH # Mildly elevated Troponin, incidentally noted not admission blood work without any report of chest pain or dyspnea! - Possible demand ischemia and amplified by underlying MURPHY - Recheck of Trop seems to be trending down - Check Echo - Follow on Tele # History of hypertension, poorly controlled - Continue with home dose Carvedilol - Hold Lisinopril for now given MURPYH - Start PO Hydralazine for now # Superficial scrotal ulcer - Wound care consult # Chronic anemia with recent history of GI bleed. - H/H is currently stable at the same level of recent hospitalization and discharge - Followup repeat labs in am Dispo: 2-3 days GI Prophylaxis: Proton Pump Inhibitor VTE Prophylaxis: SCDs Resuscitation Status: CPR: Attempt Resuscitation (discussed and verified with patient) Duarte Bertrand November 29, 2016 09:59
--- NOTE | 2016-11-29 10:31 | PCM.ADCARE ---
Advance Care Planning Note Purpose of Encounter: Goals of care Parties in Attendance: patient, daughter, battery starter Decisional Capacity: decisional Subjective: Says overall feeling better although still concerned about intermittent diarrhea Objective: General: Alert, Cooperative, No Acute Distress Head: Normal Eyes: PERRLA, EOMI, Scleral Anicteric Nose: Mucous Membr Moist/[place]ouse Mouth: Mucous Membr Moist/[place] Neck: Supple Chest & Lungs: Chest Wall Normal, Clear to auscultation bilat Cardiovascular: Regular Rate/Rhythm Pulses: NL DP, PT Abdomen: Non-tender, Non-distended, Normoactive bowel tones, Soft Genitalia: Normal (except small (about 1-2 mm) superficial ulceration of the scrotum) Extremities: No cyanosis/clubbing/edema bilat Neurological: Grossly Neurologically Intact, Normal Speech Lymphatic: Other Lymph Nodes (no significant lymphadenopathy appreciated) Goals of Care Determinations: Hopes to be able to return to his prior living situation at home but willing to consider SNF or HH Plan: Continue with current treatment. Social work consulted for consideration for SNF vs home health CODE STATUS: Full Code Time Spent Adv.Care Plannin min Duarte Bertrand November 29, 2016 10:31
--- NOTE | 2016-11-29 11:48 | NUR ---
Evaluation completed. Please go to "Notes" then click on "Assessments and Notes" (bottom left corner of screen). Then select appropriate discipline tab on top of screen.
--- NOTE | 2016-11-29 14:46 | DRSVH ---
[facility] [address] [place] [address] Echocardiogram Report Name: TRICIA RAMIREZ SStudy Date: 11/29/2016 Height: 71 in Hospital Exam Location: [facility] Weight: 170 lb Gender: Male BSA: 2.0 m2 : 1945 Age: 71 yrs Reason For Study: ELEVATED TROPONIN Ordering Physician: HOSPITALIST [facility] Performed By: Aniyah Turner Referring Physician: TOM MAYERS DO Interpretation Summary 1) Mild concentric left ventricular hypertrophy with normal size, wall motion, and systolic function (EF 55-60%). 2) Normal right ventricular size and function. 3) Severe biatrial enlargement present. 4) Grade 2 diastolic dysfunction (pseudonormalization) pattern, consistent with elevated filling pressures. 5) No significant valvular disease. 6) Pulmonary hypertension present, with estimated systolic pulmonary pressure of 44mmHg. 7) Compared to the Echo done 10/22/2015, biatrial enlargement is more prominant on today's study. Procedure: A two-dimensional transthoracic echocardiogram with color flow and Doppler was performed. The study quality was technically adequate. Comparison is made with the echocardiogram of 10-22-2015. The patient was in normal sinus rhythm during the exam. Left Ventricle: The left ventricle is normal in size. There is mild concentric left ventricular hypertrophy. Left ventricular systolic function is normal without focal wall motion abnormalities. The ejection fraction is estimated to be 55-60%. Assessment of diastolic parameters suggests a pseudonormalization pattern, consistent with elevated filling pressures. Right Ventricle: The right ventricle is normal in size and function. Atria: There is severe biatrial enlargement. There is no Doppler evidence for an atrial septal defect. Mitral Valve: The mitral valve leaflets appear mildly thickened, but open well. There is mild to moderate mitral regurgitation. Compared to the prior echo study, there has been an increase in the severity of mitral regurgitation. Aortic Valve: The aortic valve is trileaflet. The aortic valve opens well. There is no aortic valve stenosis. There is trace aortic regurgitation. Tricuspid Valve: The tricuspid valve leaflets are thin and pliable. There is mild tricuspid regurgitation. The right ventricular systolic pressure is estimated at 44 mmHg assuming a right atrial pressure of 8 mm Hg. Pulmonic Valve: The pulmonic valve is normal in structure and function. There is no pulmonic valvular regurgitation. Great Vessels: The aortic root is normal size. The dimensions of the ascending aorta are normal. The pulmonary artery is normal size. The IVC is dilated (diameter is greater than 2.1 cm) yet it collapses greater than 50% with a sniff. This suggests a right atrial pressure of 8 mm Hg. Pericardium/ Pleura There is no pericardial effusion. There is no pleural effusion. MMode/2D Measurements & Calculations LVIDd: 4.7 cm LA dimension: 4.2 cm RA long axis: 6.1 cm LVOT diam: 2.5 cm LVIDs: 3.3 cm AoV Opening FS: 30.1 % LA A2 area: 32.6 cm RA area: 26.3 cm EPSS: 1.3 cm LA A4 area: 23.5 cm RA vol: 96.6 ml Ao root diam IVSd: 1.3 cm LA length (vol) RA : 49.1 ml/m2 LVPWd: 1.1 cm Aortic Jxn: 2.9 cm LA vol: 100.8 ml asc Aorta Diam LA vol index Ao Arch Diam (Prox Trans): 2.9 cm IVC diam: 2.5 cm EDV(MOD-sp2) LV [place]. diameter/BSA LV sys. diameter/BSA RVD1 (basal) (cm/m^2): 2.4 (cm/m^2): 1.7 : 3.9 cm ESV(MOD-sp2) EF(MOD-sp2) RVD2 (mid) : 3.6 cm Doppler Measurements & Calculations Ao V2 max MV E max jaya MV E/A: 0.83 TR max jaya : 108.2 cm/sec : 85.9 cm/sec Med Peak E' Jaya : 297.8 cm/sec Ao max PG MV A max jaya TR max P.5 mmHg : 4.7 mmHg : 103.2 cm/sec E/E' med: 14.2 PA V2 max Ao mean PG MV P1/2t Lat Peak E' Jaya : 67.1 cm/sec : 52.9 msec PA mean P.1 mmHg LVOT Max Jaya E/E' lat: 17.5 PA Accel Time : 85.0 cm/sec E/e' average: 15.9 : 0.20 sec Pulm A Revs Dur LIANE(I,D): 3.7 cm sev ratio MV A dur: 0.13 sec MV dec time MV P1/2t max jaya Ao V2 mean LV V1 max PG : 0.18 sec : 78.3 cm/sec MVA(P1/2t) Ao V2 VTI: 26.0 cm LV V1 VTI: 20.3 cm : 4.2 cm2 LIANE(V,D): 3.8 cm2 MR flow rate PA V2 mean LIANE indexed to BSA Pulm A Revs Dur - MV : 135.5 cm3/sec : 49.3 cm/sec (cm^2/m^2): 1.9 A Dur: -0.00 msec MR PISA radius Reading Physician:02:46 PM
--- NOTE | 2016-11-29 15:24 | NUR ---
Social Work- initial assessment: Data:See initial assessment. Pt is a 71 y/o male who was admitted on 11/28/16 for R/O UT per H&P. Pt's insurance is [facility] and PCP is Afsaneh Ybarra DO. EMR reviewed. Pt's readmission score is 2. SAGAR met with pt and daughter's Humphrey to discuss discharge planning, SW role explained. Pt resides at home with family providing 24/01 care. Pt uses either crutches or a fww at baseline and does not drive. Pt is currently open with [facility] For RN and PT, order received. PT has no SNF history. Pt has no [facility] care insurance or VA benefits. SW discussed DPOA/ advanced directive, daughter confirms they have completed this, SW encouraged a copy to be brought in. PT saw pt and they are recommending SNF. Pt and family declining SNF stating they would never have pt go to SNF and he would return home with family support and HH. Family has questions about [employer]. SW explained pt would need to be on Medicaid to qualify. SW provided them with Medicaid application and also [employer] information and senior resources guidebook. SAGAR updated Barbra with [facility] of admission, access has been provided. Pt's family to provide transport home. SW provided phone number and plan on white board in room. SW will continue to follow. Assessment:Pt who would benefit from HH. Plan:Pt to discharge home when medically stable with family support via POV. PT and family declining SNF. Pt will resume HH orders through [facility] for RN and PT. SAGAR will continue to follow. YAYA Valle Addendum: 11/29/16 at 1530 by HAI WONG Amended: Links added.
--- NOTE | 2016-11-29 16:44 | NUR ---
GI Loose stools x 2. Incontinent of bowel x 1. Bowel tones hyperactive in all 4 quadrants. Denies abdominal pain or N/V. Appetite is baseline per patient. Afebrile. Stool PCR negative. Continues frequent rounding.
[2016-11-29] MEDS: cefTRIAXone Inj 2,000 MG in Dextrose 5% Minibag Plus 50 ML IV SCH (17:55)
[2016-11-30] VITALS (7 sets, daily range): BP systolic 107–162; BP diastolic 72–88; PULSE 52–75; RESP 15–18; O2SAT 98
--- NOTE | 2016-11-30 01:07 | NUR ---
BM, Dizziness: Pt is having loose/liquid stools tonight, occasionally incontinent and unable to wait to get up the BSC. Hospitalist was paged, Imodium was ordered x1 and given. Pt is also unsteady when getting up, assisted with 2 staff and the FWW. Pt reports dizziness when up, causing the unsteadiness. Daughter here staying with pt, bed alarm on for safety. Addendum: 11/30/16 at 0518 by TULIO LY RN Pt has been able to sleep tonight, no further BMs after Imodium given.
[2016-11-30 07:52] LABS: Mean Corpuscular Hemoglobin 22.8 pg (27.0-35.0); Mean Corpuscular Volume 73.1 fL (81-100)
[2016-11-30] MEDS: Insulin Human REGular 300 Unit/3 mL Inj SUBQ SCH ×4 (08:42→21:26)
[2016-11-30] MEDS ORDERED: 0.9% Sodium Chloride 1,000 ML IV SCH (08:45)
[2016-11-30 09:27] LABS: TROPONIN T 0.047 ug/L (0.0-0.011)
--- NOTE | 2016-11-30 09:58 | NUR ---
Social Work: Readiness for Discharge D: EMR reviewed. Pt is on day 2 of hospitalization. Per AM multi-disciplinary rounds, pt likely to discharge in the next 1-2 days. MD and PT recommended pt go to SNF during multi-disciplinary rounds today. MD ordered SW consult for SNF 11/29. SW met with pt and family at bedside to discuss SNF. Pt and family declining SNF stating they would never have pt go to SNF and he would return home with family support and HH. Pt is open with [facility] RN PT. placed orders to resume HH. Pt will return home with family via POV and resume [facility] RN PT. SW will continue to follow. A: Pt for whom a SNF has been deemed medically necessary, but pt and family declines. Pt who will return home and resume [facility] RN PT. P: Pt to return home with family via POV and resume [facility] RN PT. SW to update [facility] on day of discharge. SW will continue to follow. YAYA Alcantara
--- NOTE | 2016-11-30 10:43 | NUR ---
Wound Note Wound evaluation orders received to evaluate scrotal wound. 71 yo male admitted with hypoglycemia and today complaining of a 2 year history of diarrhea which as thus far been resistant to treatment. On evaluation at bedside with patients daughter present, presents with a 0.2 cm diameter superficial ulcer which is neither bleeding or draining from what I can see. Unsure what this ulceration is due to but is likely incontinence associated as patient is wearing a brief. Recommend using shield wipes during pericare. No other wound care needs at this time.
--- NOTE | 2016-11-30 13:19 | PCM.PNMED ---
Subjective Date of Service November 30, 2016 Subjective Still feels quite poorly, complaints of weakness especially when standing and also becomes lightheaded with standing. Continues to have diarrhea. Exam Vital Signs Vital Sign - Last Date Time Temp Pulse Resp B/P Pulse Ox O2 Delivery O2 Flow Rate FiO2 11/30/16 09:36 58 16 162/84 98 Room Air 11/30/16 04:58 36.8 Intake and Output 11/29/16 11/29/16 11/30/16 Cumulative From/Thru 15:00 23:00 07:00 11/28/16 14:13 - 11/30/16 06:16 Intake Total 350 ml 900 ml 2972 ml Output Total 650 ml 400 ml 1050 ml Balance -300 ml 500 ml 1922 ml Intake Oral 350 ml 900 ml 1250 ml IV Total 1722 ml Output Urine Total 650 ml 650 ml Stool Total 400 ml 400 ml # Voids 2 2 # Bowel Movements 0 2 2 Exam General: Alert, no acute distress Heart: Regular Lungs: Clear Abdomen: Soft, non-tender, bowel tones present Extremities: No pedal edema IVs and Medications Medications Reviewed: Medications were reviewed in detail Lab and Diagnostics Result Diagram: 11/30/16 0745 11/30/16 0745 X-Rays, CTs and MRIs Date of Service: 11/28/16 1409 PROCEDURE: X-RAY CHEST ONE VIEW, PORTABLE ([id number]) IMPRESSION: Shallow inspiration causes bibasliar atelectasis left greater than right. Infection is much less likely. Otherwise negative chest. Dictated by: Levi Malone M.D. on 11/28/2016 at 14:33 Approved by: Levi Malone M.D. on 11/28/2016 at 14:35 12-lead ECG NSR at about 70bpm. there is minimall ST elevation in the lateral leads but unchanged compared to the EKG from 11/20/16 Assessment & Plan 71-year-old male with past medical history significant for Insulin dependent diabetes mellitus who was discharged from this hospital just 5 days ago after suspected lower GI bleed and acute kidney injury presents today with acute hypoglycemia in setting of increased dose of Lantus since recent hospitalization while continuing with Glipizide despite MURPHY. He seems to have evidence of UTI also. # Acute kidney injury, present on admission. Creatinine overall fairly stable but not improving (reported 1.5 improved to 1.15 in 2016) - Suspect likely at least partially pre-renal due to underlying diarrhea - Continue with gentle IVF - Check renal U/S - still pending - nephrology consult. - Avoid nephrotoxic medications including home dose diuretics (not clear to me why patient is on two different diuretics at all) # Acute on chronic diarrhea, present on admission, persists - Unclear etiology, colonoscopy earlier this month for rectal bleeding fairly unremarkable - Stool PCR negative - For now continue IV fluids, especially with lack of improvement in creatinine - prn Imodium - GI consult # Chronic anemia with recent history of GI bleed. - Hgb has dropped from 8.7 to 7.7 but still in range of reported 7.5-8 baseline. - Microcytic with reported normal iron studies a year ago but will repeat - contributing to his lightheadedness with standing? - candidate for EPO? # History of hypertension, poorly controlled - Continue with home dose Carvedilol - Lisinopril held for now given MURPHY - Hydralazine po started yesterday with some improvement # Acute hypoglycemia with history of diabetes mellitus, present prior to admission. - Likely due to increased dose of Lantus recently along with continued Glipizide despite recent MURPHY and exacerbated by underlying infection and UTI - Glu now running approx 200 - Lantus initally held, will resume at just 10 units qHS - Stop Glipizide - Cover with low dose SS # [place] to have UTI on admission but urine culture with mixed urogenital cheryl. - Will DC IV Ceftriaxone (received 2 doses # Acute hypothermia. Present on admission. Resolved - Likely due to underlying hypoglycemia - TSH borderline (4.7 with top of normal 4.5), could repeat in a few weeks as outpt # Mildly elevated Troponin, incidentally noted not admission blood work without any report of chest pain or dyspnea! - Possible demand ischemia and amplified by underlying MURPHY - Recheck of Trop seems to be trending down - Echo done - shows diastolic dysfunction and pulm htn # Superficial scrotal ulcer - Wound care consult GI Prophylaxis: Proton Pump Inhibitor VTE Prophylaxis: SCDs Resuscitation Status: CPR: Attempt Resuscitation (discussed and verified with patient) Zoey Rai MD November 30, 2016 13:19 patient) Zoey Rai MD November 30, 2016 13:19
[2016-11-30 13:36] LABS: Unsaturated Iron Binding 245.8 ug/dL
--- NOTE | 2016-11-30 15:22 | DRSVH ---
PROCEDURE: US RENAL SONOGRAM INDICATIONS: MURPHY TECHNIQUE: Real-time scanning was performed of the kidneys and bladder, with image documentation. COMPARISON: [facility], US, US RENAL, 10/24/2015, 8:34. FINDINGS: Kidneys: Kidneys are normal in size. Right kidney measures 12.2 cm long; left kidney measures 11.0 cm long. Right renal cortical thickness is 1.5 cm; left renal cortical thickness is 1.5 cm. Renal c ortical echotexture is normal. No hydronephrosis or nephrolithiasis. No suspicious solid mass lesio ns. Subcentimeter bilateral renal cysts redemonstrated. Bladder: Pre-void bladder volume is 892 mL. Patient was unable to void at time of exam.. Pre-void images demonstrate no intraluminal masses or stones. On pre-void images, bilateral ureteral jets are noted with color Doppler interrogation. (Of note, ureteral jets may not be detectable in up to 25% of cases due to insufficient differences in specific gravity between ureteral and bladder urine). Miscellaneous: No free pelvic fluid. IMPRESSION: 1. Subcentimeter renal cysts redemonstrated otherwise normal kidneys. 2. Post void residual cannot be assessed as the patient was unable to void. Dictated by: Fernando Hussein [facility] Interpreted: Alia Hollins MD on 11/30/2016 at 15:20 Transcribed by: LAUREN on 11/30/2016 at 15:21 Approved by: Alia Hollins MD, PhD on 11/30/2016 at 15:48
--- NOTE | 2016-11-30 17:04 | NUR ---
Bladder scan New orders for bladder scan, Amount over 1000cc. Dr Kennedy and Dr. Navarro at bed side and aware of bladder scan amounts, orders to place Song and stop the fluids. Patient is agreeable for Song cath placement. Daughters at bed side and aware.
--- NOTE | 2016-11-30 17:04 | PCM.CHPMED ---
Subjective Date of Service: November 30, 2016 Primary Physician: Admitting Physician: Duarte Bertrand Primary Care Physician: Afsaneh Ybarra DO Attending Physician: Duarte Bertrand Admit Status: Admit to Green Team Chief Complaint: Chief Complaint: Nephrology Service Consultation [facility] PGY2 and attending Dr. 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 He was started on fluids and given 1 dose of ceftriaxone. Nephrology service consulted for MURPHY on CKD Patient denies any symptoms of dysuria, suprapubic pressure, or back pain. No fever, chills, or night sweats. He further denies any urinary urgency, hesitancy, frequency, or incontinency. Though, daughter states that he sits on the toilet for prolonged periods. Possible that he has chronic diarrhea. Patient has a good appetite and has no barriers to oral intake. Patient was recently (11/20) diagnosed with MURPHY secondary to ischemia related to GI bleed and NSAID (Advil) abuse. No recent use of Advil for the past 2 weeks. Creatinine at the time was 2.27, up from outpatient record creatinine 2.16 (09/07 ) and likely baseline creatinine 1.4 on (07/13/2016). Note outpatient protein creatinine ratio 1210. Patient has uncontrolled hypertension for over 20 years with echocardiogram 11/29/2016 showing pseudonormalization suggestive of diastolic heart failure and bilateral ventricular enlargement. He has chronic bilateral lower leg pitting edema. Additionally, patient has diabetes type II for over 40 years, uncontrolled with A1c of 9.7 and multiple sequela. Recent upper endoscopy suggestive of gastroparesis. Patient lives with daughter and manages medication, including insulin, though patient is legally blind. PMH Past Medical History Acute CVA 1985 Glaucoma Bilateral age-related cataracts Insulin-dependent diabetes type II, uncontrolled +40 years Peripheral neuropathy Diabetic retinopathy Nephropathy Gastroparesis Chronic hypertension +20 years Anemia Bedside Blood Glucose: 196 Surgical History Left hip ORIF Home Medications Recently discharged on Atorvastatin 40 mg daily Carvedilol 25 mg twice a day Chlorthalidone 25 mg daily Insulin Lantus 12 units twice a day Allergies: Coded Allergies: No Known Allergies (Verified Allergy, Unknown, 09/27/16) Family History Family History Strong family history of diabetes Father and mother has diabetes Social History 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 Alcohol Use: YesAlcoholic Drinks Per Day: Wine SeldomHx Substance Use: NoHx Tobacco Use: No Smoking Status: Never Smoker Living Arrangement: with Family Exam Vital Signs Vital Sign - Last Date Time Temp Pulse Resp B/P Pulse Ox O2 Delivery O2 Flow Rate FiO2 11/30/16 15:45 54 17 127/75 98 Room Air 11/30/16 04:58 36.8 Intake and Output 11/29/16 11/29/16 11/30/16 Cumulative From/Thru 15:00 23:00 07:00 11/28/16 14:13 - 11/30/16 06:16 Intake Total 350 ml 900 ml 2972 ml Output Total 650 ml 400 ml 1050 ml Balance -300 ml 500 ml 1922 ml Intake Oral 350 ml 900 ml 1250 ml IV Total 1722 ml Output Urine Total 650 ml 650 ml Stool Total 400 ml 400 ml # Voids 2 2 # Bowel Movements 0 3 3 General: Oriented X3 Eyes: PERRLA, EOMI, Scleral Anicteric Mouth: Mucous Membr Moist/[place] Neck: Other (JVD noted) Chest & Lungs: Auscultation, Crackles (few crackles bilaterally in the lower bases) Cardiovascular: No Murmurs/Rubs/Gallops Pulses: Carotid Abdomen: Non-tender, Non-distended Genitourinary: Other (negative for costophrenic angle tenderness.) Extremities: Edema (bilateral +2 lower leg edema) Skin: Other (no pressure ulcers) Neurological: Grossly Neurologically Intact, Cranial Nerves 2-12 Intact, Normal Speech Lab and Diagnostics Result Diagram: 11/30/16 0745 11/30/16 0745 X-Rays, CTs and MRIs PROCEDURE: US RENAL SONOGRAM IMPRESSION: 1. Subcentimeter renal cysts redemonstrated otherwise normal kidneys. 2. Post void residual cannot be assessed as the patient was unable to void. Dictated by: Fernando CA Interpreted: Alia Hollins MD on 11/30/2016 at 15:20 Transcribed by: LAUREN on 11/30/2016 at 15:21 Approved by: Alia Hollins MD, PhD on 11/30/2016 at 15:48 Assessment & Plan Assessment Patient is a 71-year-old male with a medical history significant for long- standing uncontrolled insulin-dependent diabetes type II, hypertension, and CKD who recently was diagnosed with MURPHY secondary to likely ischemia from GI bleed and NSAID abuse presented overnight for unconsciousness related to hypoglycemia , found to have recurrent MURPHY. US renal sonogram redemonstrate subcentimeter renal cyst otherwise and kidney plus postvoid residual of 892 mL. Likely, patient has postrenal ARF from neurogenic bladder, possible postobstructive such as BPH in the setting of recent acute kidney injury, baseline CKD stage III, and anemia. Hemoglobin 7.6, CMP 73.1, high RDW, and iron panel with iron 28, and 10% saturation. Problem list #MURPHY on CKD secondary to obstructive uropathy and NSAIDs-induced MURPHY. #Nephropathy #Uncontrolled insulin-dependent diabetes type II #Uncontrolled hypertension #Iron deficient anemia #HFpEF Plan #D/C NS 85 mL/hr as patient is hypervolemic, hypertensive, HFpEF, and increasing leg edema #Repeat bladder scan, Song catheter post residual ovoid greater than 400 mL #Order will chain electrophoresis and urine protein #Recommend IV iron, monitor H&H, may require blood transfusion, epogen is not indicated. #Will give IV lasix tonight, add chlorthalidone in am. Patient was seen and examined by me. Agreed as above. Plan discussed with his family. Questions were answer. Time spent 60 mins. WGardenia Navarro Problems: GI Prophylaxis: Proton Pump Inhibitor VTE Prophylaxis: SCDs Resuscitation Status: CPR: Attempt Resuscitation (discussed and verified with patient) Jared Goodrich DO November 30, 2016 17:04 Chanell Dutton MD November 30, 2016 19:56
--- NOTE | 2016-11-30 18:08 | NUR ---
Nichole Nichole 16Fr. placed AT 1745. daughters at bed side. charge nurse aware. nichole placed 600cc out in Nichole bag. Urine sample sent to lab.
[2016-11-30 18:14] LABS: APPEARANCE,URINE CLEAR (CLEAR,HAZY); COLOR,URINE YELLOW (YELLOW)
[2016-11-30 18:15] LABS: OCCULT BLOOD,URINE NEGATIVE (NEGATIVE); UROBILINOGEN,URINE NORMAL (NORMAL)
--- NOTE | 2016-11-30 18:21 | CONS ---
[address] [address] CONSULTATION REPORT PATIENT: TRICIA RAMIREZ : 1945 MR#: [id number] ADMIT: 11/28/2016 JOB ID: [id number] DATE OF SERVICE: 11/30/2016 I had the pleasure of seeing this patient at for diarrhea. This is a 71-year-old gentleman with multiple medical history. He came in today due to mental status change and hypoglycemia. He is originally from [place] with a past medical history of diabetes, discharged from the hospital about 4-5 days ago. He came in with low sugar, change in mental status, and he was also noted to be hypovolemic with acute renal insufficiency. He also has a history of chronic diarrhea. It varies from a couple of episodes a day up to 6-7 episodes a day. It has been like this for a number of years and, according to the daughter who translated for me, did not indicate any kind of workup was done except for the last EGD and colonoscopy. The patient wanted to be translated via the daughter. He came in last week because of painless rectal bleeding. He had this episode before and he was seen by one of my partners, and endoscopy was done. Also, during the last visit, he also was in acute renal failure with BUN of 43 and creatinine 1.93. Endoscopy was done. EGD was performed which showed food debris in the fundus suggestive of gastroparesis. Colonoscopy was done which showed a 4 mm polyp which was removed. A few diverticula, hemorrhoids. Essentially there was no cause of anemia but did have hemorrhoids. Because of his poor glucose control, he was given more insulin and he was discharged. Also, there was a question of am abnormal liver function test, and he recommended screening for viral hepatitis. The patient's hemoglobin remained stable and therefore he was discharged. Now, when he went home, he was doing well but again persistent diarrhea occurred, maybe slightly more than usual, and he again came in with acute renal failure with BUN of 36, creatinine of 1.97. His troponins are mildly elevated as well. He was also noted to be hypoglycemic and this was treated. Currently, he said he had three episodes of diarrhea since he came in, but denies any nausea, vomiting, abdominal pain, fever, chills, headaches, blurred vision, dizziness, lightheadedness, chest pain, shortness of breath, abdominal pain, blood in the stools or black stools. PAST MEDICAL HISTORY: Diabetes with neuropathy and retinopathy, CVA, high blood pressure, anemia. PAST SURGERY HISTORY: Past surgical history includes right hip surgery. FAMILY HISTORY: Noncontributory. SOCIAL HISTORY: Denies alcohol abuse, tobacco use. MEDICATION: Here includes: 1. Lyrica. 2. Hydralazine. 3. Insulin. 4. Tylenol. 5. Imodium. 6. Atorvastatin. 7. Carvedilol. 8. Morphine. 9. MiraLAX. 10. Senna. 11. Zofran. 12. Maalox. PHYSICAL EXAMINATION: Patient is alert and comfortable. Temp 36.8, pulse 65, respirations 16, blood pressure 158/80. Head and neck: No icterus. Lungs: Clear. Cardiovascular: Regular rate and rhythm. Normal S1, S2. Abdomen is soft, nontender, nondistended with normoactive bowel sounds. Skin shows no obvious jaundice but he seems to be . Therefore, difficult to tell. Extremities: No pitting edema of the ankles. LABORATORY DATA: Hemoglobin 8.7 on the 28th, 7.7 on the 29th and today 7.6. Platelets 248,000. White count 4400. INR 1.4. Chemistry reveals a BUN of 36, creatinine 1.97, and the liver function tests were actually normal with AST of 20, ALT of 31, alk phos 144. On admission, his BUN was 43, creatinine 1.98. IMPRESSION and recommendation: This is a gentleman who had persistent diarrhea who came in with acute chronic renal insufficiency with multiple diarrhea. The etiology of the diarrhea is probably dumping syndrome or vasoneuropathy from the diabetes. When he eats something, he quickly has diarrhea. Colonoscopy was apparently done. They did not do random biopsies at that time, but if we have no other cause, we may have to repeat this eventually with random biopsies. But, his hemoglobin is stable. Would recommend the followin. Gastric emptying study to rule out dumping. 2. Small bowel follow-through to look at the transit time. 3. Would give him Imodium with meals. 4. Lactose-free diet. 5. Would obtain dietary consult and get some recommendation on anti-dumping diet. 6. If all these are unremarkable, would do further stool studies such as fecal fat, stool studies for white count. These would indicate if he has underlying malabsorption. Another possibility that he could have bacterial overgrowth and may require treatment with rifaximin if his underlying gastric emptying study and small bowel follow through are unremarkable. MTDD
--- NOTE | 2016-11-30 18:37 | NUR ---
Nuclear medicine Nuc Med called and states," Gastric emptying test tomorrow, NPO after mid night, hold anticholerigeninc and stomach motility, norcotics.
[2016-11-30] MEDS ORDERED: Furosemide 10 mg/mL 4 mL Inj IVPUSH ONE (19:50)
[2016-11-30] MEDS ORDERED: Insulin GLARgine 100 Unit/mL Syringe SUBQ SCH (21:00)
[2016-12-01] VITALS (9 sets, daily range): BP systolic 83–142; BP diastolic 52–78; PULSE 50–74; RESP 12–18; O2SAT 95–100
--- NOTE | 2016-12-01 04:15 | NUR ---
NOC shift note Patient had diarrhea x2 in evening- light brown, frothy, with food particles. Immodium given once. Denies pain. Vital signs stable. NPO at midnight for planned gastric emptying study today. Song draining to gravity. Intentional rounding in place.
[2016-12-01 07:48] LABS: Mean Corpuscular Hemoglobin 22.2 pg (27.0-35.0); Mean Corpuscular Volume 73.6 fL (81-100)
[2016-12-01] MEDS ORDERED: Ferric Sod Gluc Complex Inj 125 MG in 0.9% Sodium Chloride 100 ML IV ONE (08:00)
[2016-12-01] MEDS: Insulin Human REGular 300 Unit/3 mL Inj SUBQ SCH ×4 (08:04→22:00)
--- NOTE | 2016-12-01 11:57 | PCM.PNNEPH ---
Jared Goodrich DO 12/01/16 1157: Subjective Date of Service December 01, 2016 Subjective Patient is a 71yom with MHx significant for long-standing uncontrolled insulin- dependent diabetes type II, hypertension, and CKD who was recently diagnosed with MURPHY secondary to probably ischemia due to GI bleed associated with NSAID abuse, found unconsciousness due to hypoglycemia and admitted with Nephrology consultation for recurrent MURPHY. Residual urine scan demonstrate urinary retention 800cc yesterday. Song catheter in placed, draining 750cc overnight. Lasix and chlorthalidone given in the setting of CHF and HTN. Pt continues to complaint of diarrhea and went on the commode at least 8x overnight. He otherwise denies any fever, chills, nausea, vomiting. No abd or back pain. Exam Vital Signs Vital Sign - Last Date Time Temp Pulse Resp B/P Pulse Ox O2 Delivery O2 Flow Rate FiO2 12/01/16 05:13 36.7 74 18 117/64 98 Room Air Intake and Output 11/30/16 11/30/16 12/01/16 Cumulative From/Thru 15:00 23:00 07:00 11/28/16 14:13 - 12/01/16 06:31 Intake Total 1106 ml 450 ml 4528 ml Output Total 200 ml 1200 ml 2450 ml Balance 906 ml -750 ml 2078 ml Intake Oral 740 ml 450 ml 2440 ml IV Total 366 ml 2088 ml Output Urine Total 200 ml 1200 ml 2050 ml Stool Total 400 ml # Voids 2 # Bowel Movements 4 7 Exam Gen: Lying comfortably at 30degree head tilt HEENT: PERRLA, Anicteric sclerae, Neck: supple, no JVD, Cardio: Regular rate and rhythm with no murmurs, rubs, or gallops appreciated Pulm: b/l air sound, no crackles, wheezes, or rhonchi. Normal respiratory effort with no use of accessory muscles. Abd: positive bowel tone. Soft, nontender, nondistended. Extremities: No clubbing, cyanosis, edema, or lymphadenopathy appreciated. Skin: Normal temperature and texture; normal skin turgor, no rash, Neuro: moving equally on 4 limbs. Psyc: Normal mood and affect. AoX3 Lab and Diagnostics Result Diagram: 12/01/16 0730 12/01/16 0730 X-Rays, CTs and MRIs Date of Service: 11/28/16 1409 PROCEDURE: X-RAY CHEST ONE VIEW, PORTABLE ([id number]) IMPRESSION: Shallow inspiration causes bibasliar atelectasis left greater than right. Infection is much less likely. Otherwise negative chest. Dictated by: Levi Malone M.D. on 11/28/2016 at 14:33 Approved by: Levi Malone M.D. on 11/28/2016 at 14:35 12-lead ECG NSR at about 70bpm. there is minimall ST elevation in the lateral leads but unchanged compared to the EKG from 11/20/16 Plan Impression Patient is a 71yom with MHx significant for long-standing uncontrolled insulin- dependent diabetes type II, hypertension, and CKD who was recently diagnosed with MURPHY secondary to probably ischemia due to GI bleed associated with NSAID abuse, found unconsciousness due to hypoglycemia and admitted with Nephrology consultation for recurrent MURPHY. Given bladder residual volume 800cc and US renal sonogram with kidneys unremarkable, MURPHY likely obstructive uropathy: neurogenic bladder, BPH. Problem list #MURPHY on CKD secondary to obstructive uropathy and NSAIDs-induced MURPHY. #Nephropathy #Uncontrolled insulin-dependent diabetes type II #Uncontrolled hypertension #Iron deficient anemia #HFpEF Plan: # Reduce home carvedilol to 12.5mg BID. # Cont hydralazine, hold lisinopril and d/c chlorthalidone #Awaits chain electrophoresis and urine protein #Ordered IV iron, monitor H&H, may require blood transfusion, epogen is not indicated. Chanell Dutton MD 12/02/16 1044: Exam Lab and Diagnostics Result Diagram: 12/01/16 0730 12/01/16 0730 Plan Plan: I have seen and examined patient with the resident. Agreed as above. Today his BP was on the low side after we gave one dose of lasix overnight. Song cath was placed without difficulty. I rec to hold chlorthalidone and decrease coreg to 12.5 mg BID. monitor H&H. Rec IV ferrlecit 125 mg IV x1. W. MD Ramon Pg [phone] Jared Goodrich DO December 01, 2016 11:57 Chanell Dutton MD Dec 02, 2016 10:44
--- NOTE | 2016-12-01 12:26 | PCM.PNMED ---
Subjective Date of Service December 01, 2016 Subjective No complaints, denies pain. Exam Vital Signs Vital Sign - Last Date Time Temp Pulse Resp B/P Pulse Ox O2 Delivery O2 Flow Rate FiO2 12/01/16 05:13 36.7 74 18 117/64 98 Room Air Intake and Output 11/30/16 11/30/16 12/01/16 Cumulative From/Thru 15:00 23:00 07:00 11/28/16 14:13 - 12/01/16 06:31 Intake Total 1106 ml 450 ml 4528 ml Output Total 200 ml 1200 ml 2450 ml Balance 906 ml -750 ml 2078 ml Intake Oral 740 ml 450 ml 2440 ml IV Total 366 ml 2088 ml Output Urine Total 200 ml 1200 ml 2050 ml Stool Total 400 ml # Voids 2 # Bowel Movements 4 7 Exam General: arouses easily from sleep, no acute distress Heart: Regular Lungs: Clear anteriorly and laterally Abdomen: Soft, non-tender Extremities: trace pedal edema Lab and Diagnostics Result Diagram: 12/01/16 0730 12/01/16 0730 X-Rays, CTs and MRIs Date of Service: 11/28/16 1409 PROCEDURE: X-RAY CHEST ONE VIEW, PORTABLE ([id number]) IMPRESSION: Shallow inspiration causes bibasliar atelectasis left greater than right. Infection is much less likely. Otherwise negative chest. Dictated by: Levi Malone M.D. on 11/28/2016 at 14:33 Approved by: Levi Malone M.D. on 11/28/2016 at 14:35 12-lead ECG NSR at about 70bpm. there is minimall ST elevation in the lateral leads but unchanged compared to the EKG from 11/20/16 Assessment & Plan 71-year-old male with past medical history significant for Insulin dependent diabetes mellitus who was discharged from this hospital just 5 days ago after suspected lower GI bleed and acute kidney injury presents today with acute hypoglycemia in setting of increased dose of Lantus since recent hospitalization while continuing with Glipizide despite MURPHY. He seems to have evidence of UTI also. # Acute kidney injury, present on admission. Creatinine overall fairly stable at 2 but not improving (reported 1.5 improved to 1.15 in 2016) - Initially felt at least partially due pre-renal due to underlying diarrhea and given IVF - Nephrology consult much appreciated, their diagnosis is MURPHY on CKD secondary to obstructive uropathy and NSAIDs-induced MURPHY. -- D/C'd IVFf "as patient is hypervolemic, hypertensive, HFpEF, and increasing leg edema" -- IV Lasix given last evening and now Chlorthalidone for HTN control -- gave IV iron, recommend monitor H&H, may require blood transfusion, epogen is not indicated -- ordered SPEP, UPEP - pending --Placed nichole (see below) - renal U/S - Subcentimeter renal cysts redemonstrated otherwise normal kidneys #Acute on Chronic Diastolic CHF (as per above and past echo) # Urinary retention - at renal u/s Pre-void bladder volume is 892 mL. Patient was unable to void at time of exam.. - Residual urine scan demonstrate urinary retention 800cc. Nichole catheter placed draining 750cc overnight. - will begin on Flomax # Chronic micocytic anemia with recent history of GI bleed. - Hgb dropped from 8.7 to 7.7 but still in range of reported 7.5-8 baseline. Now stable at 7.8 this am - Microcytic with reported normal iron studies a year ago now iron panel is c/w iron deficiency - Given IV iron yesterday by nephrology - Recheck in am # Acute on chronic diarrhea, present on admission, persists - per Dr Parikh etiology is probably probably dumping syndrome or vasoneuropathy from the diabetes - Unclear etiology, colonoscopy earlier this month for rectal bleeding fairly unremarkable - Stool PCR negative - GI consult by Dr Parikh also much appreciated, recommended: 1. Gastric emptying study to rule out dumping which Dr Parikh has ordered 2. Small bowel follow-through to look at the transit time.(not yet ordered) 3. Would give him Imodium with meals (I ordered today) 4. Lactose-free diet (ordered) 5. Would obtain dietary consult and get some recommendation on anti-dumping diet. (I ordered today) 6. If all these are unremarkable, would do further stool studies such as fecal fat, stool studies for white count. These would indicate if he has underlying malabsorption. Another possibility that he could have bacterial overgrowth and may require treatment with rifaximin if his underlying gastric emptying study and small bowel follow through are unremarkable. 7. Colonoscopy recently done. They did not do random biopsies at that time, but if we have no other cause, we may have to repeat this eventually with random biopsies. # History of hypertension, poorly controlled - Continued with home dose Carvedilol - Lisinopril held for now given MURPHY - Hydralazine po started November 29 with some improvement - Now Chlorthalidone added as above per Neph # Acute hypoglycemia with history of diabetes mellitus, present prior to admission. - Likely due to increased dose of Lantus recently along with continued Glipizide despite recent MURPHY - Stopped Glipizide - Cover with low dose SS - Lantus initally held, resumed at just 10 units qHS November 30 - Glu still 200s - will increase Lantus to 14 units qHS # [place] to have UTI on admission but urine culture with mixed urogenital cheryl. - DC'd IV Ceftriaxone December 01 (received 2 doses) # Acute hypothermia. Present on admission. Resolved - Likely due to underlying hypoglycemia - TSH borderline (4.7 with top of normal 4.5), could repeat in a few weeks as outpt # Mildly elevated Troponin, incidentally noted not admission blood work without any report of chest pain or dyspnea! - Possible demand ischemia and amplified by underlying MURPHY - Recheck of Trop seems to be trending down - Echo done - shows diastolic dysfunction and pulm htn # Superficial scrotal ulcer - Wound care consult GI Prophylaxis: Proton Pump Inhibitor VTE Prophylaxis: SCDs Resuscitation Status: CPR: Attempt Resuscitation (discussed and verified with patient) Zoey Rai MD December 01, 2016 12:25
--- NOTE | 2016-12-01 13:52 | DRSVH ---
PROCEDURE: TN GASTRIC EMPTYING STUDY ([id number]) RADIOPHARMACEUTICAL: 0.507 mCi Tc-99m sulfur colloid in an egg sandwich. INDICATIONS: RESULTS FROM EGD INDICATE GASTROPORESIS TECHNIQUE: A Tc-99m labeled sulfur colloid labeled egg sandwich or oatmeal was served to the patient. Anterior and posterior planar images of the abdomen were obtained at 0 minutes and 30 minutes, then at hourly intervals up to 4 hours. The patient was upright and ambulating during the interval. COMPARISON: None. FINDINGS: The stomach has normal size, morphology, and position. There is normal emptying of solid gastric con tents from the stomach by visual inspection. No gastroesophageal reflux is visualized. The percentage of tracer retained at specific time points are as follows: Time point Percent gastric retention Normal range 30 minutes 97% 70% or more 1 hour 99% 30% to 90% 2 hours 68% 60% or less 3 hours technically greater than 100% 30% or less 4 hours technically greater than 100% 10% or less Gastric retention of less than 70% at 30 minutes, or less than 30% at 1 hour, would suggest abnormall y rapid gastric emptying (dumping). IMPRESSION: Severe delayed gastric emptying. Dictated by: Michelet Oviedo M.D. on 12/01/2016 at 13:48 Approved by: Michelet Oviedo M.D. on 12/01/2016 at 13:51
--- NOTE | 2016-12-01 14:15 | PCM.PNMED ---
Subjective Date of Service December 01, 2016 Subjective He has not had any meal. However he did not have egg sandwich for gastric emptying test. No stool noted on the floor and at the nuclear medicine where testing place. Exam Vital Signs Vital Sign - Last Date Time Temp Pulse Resp B/P Pulse Ox O2 Delivery O2 Flow Rate FiO2 12/01/16 13:26 54 16 132/78 98 Room Air 12/01/16 05:13 36.7 Intake and Output 11/30/16 11/30/16 12/01/16 Cumulative From/Thru 15:00 23:00 07:00 11/28/16 14:13 - 12/01/16 06:31 Intake Total 1106 ml 450 ml 4528 ml Output Total 200 ml 1200 ml 2450 ml Balance 906 ml -750 ml 2078 ml Intake Oral 740 ml 450 ml 2440 ml IV Total 366 ml 2088 ml Output Urine Total 200 ml 1200 ml 2050 ml Stool Total 400 ml # Voids 2 # Bowel Movements 4 7 Exam Patient is alert comfortable. Head and neck no icterus Lungs clear Cardiovascular regular rate and rhythm normal S1-S2 Abdomen soft nontender mild distended with normoactive bowel sounds Extremities no pitting edema at ankles Lab and Diagnostics Result Diagram: 12/01/16 0730 12/01/16 0730 X-Rays, CTs and MRIs Date of Service: 11/28/16 1409 PROCEDURE: X-RAY CHEST ONE VIEW, PORTABLE ([id number]) IMPRESSION: Shallow inspiration causes bibasliar atelectasis left greater than right. Infection is much less likely. Otherwise negative chest. Dictated by: Levi Malone M.D. on 11/28/2016 at 14:33 Approved by: Levi Malone M.D. on 11/28/2016 at 14:35 12-lead ECG NSR at about 70bpm. there is minimall ST elevation in the lateral leads but unchanged compared to the EKG from 11/20/16 Assessment & Plan This is a gentleman who had persistent diarrhea who came in with acute chronic renal insufficiency with multiple diarrhea. The etiology of the diarrhea is probably dumping syndrome or vasoneuropathy from the diabetes. When he eats something, he quickly has diarrhea. Colonoscopy was apparently done. They did not do random biopsies at that time, but if we have no other cause, we may have to repeat this eventually with random biopsies. Gastric emptying study was done. There is significant gastroparesis. This would support possible dumping syndrome because of inability of his fundus to relax. I spoke with the radiologist and they did not to liquid phase of gastric emptying test. Therefore please obtain small bowel follow-through mainly for transit time. Continue Imodium with meals. Continue lactose-free diet. Also with continue on anti-dumping diet as well. If small bowel follow-through shows normal transit time, treat with rifaximin 550 twice a day for about 10 days. At the same time we will could do stool fat measurement as well as fecal leukocytes. Anemia still noted hemoglobin stable. Will need further workup. This can be done as an outpatient when he follows up with in the GI clinic. If there is evidence of decreasing hemoglobin, please order a red tag scan. GI Prophylaxis: Proton Pump Inhibitor VTE Prophylaxis: SCDs Resuscitation Status: CPR: Attempt Resuscitation (discussed and verified with patient) Arvin Parikh MD December 01, 2016 14:15
--- NOTE | 2016-12-01 18:47 | NUR ---
GI/Activity Pt with chronic diarrhea went for gastric emptying study this AM to rule out dumping syndrome. Results reveal delayed emptying/gastroparesis. Had no abd pain or diarrhea while NPO but w/n an hour of eating he had multiple trips to [facility] [place]. Pt now complains of severe abd pain for which he has received tylenol and 2mg morphine. Barium small bowel study for tomorrow AM to determine cause of diarrhea. Song still in place and producing adequate but dark urine. Pt is 2person max assist to BS due to neuropathy.
[2016-12-01] MEDS ORDERED: 0.9% Sodium Chloride 500 ML IV ONE ×2 (21:20→22:15)
--- NOTE | 2016-12-01 22:09 | NUR ---
Patient condition Patient was sleeping at beginning of NOC shift. BP at 2029 was 98/59, RR 16. Reviewed meds, patient received 2mg Morphine at 1840. Pupils small, patient difficult to wake. paged, order for Narcan. Narcan given at 2099, BP rechecked it was 86/52. paged again at this time, new order for 500ml NS bolus and to repeat the 0.4mg Narcan. confirmed that patient does not need to be on remote telemetry. After bolus, BP was 93/55. paged, new orders for more IV fluid. Patient has continuous pulse oximeter connected, close monitoring in place. Addendum: 12/01/16 at 2236 by LORI ALONZO RN Blood sugars checked twice between 2029 and 2214, 254 and 224. up to see patient at 2229, putting in orders for labs to be checked tonight.
[2016-12-01] MEDS: Insulin GLARgine 100 Unit/mL Syringe SUBQ SCH (22:33)
[2016-12-01 22:58] LABS: BASOPHILS % (AUTO) 0.2 % (0-3); EOSINOPHILS % (AUTO) 1.2 % (0-5); MONOCYTES % (AUTO) 5.6 % (4-12); Mean Corpuscular Hemoglobin 22.7 pg (27.0-35.0); Mean Corpuscular Volume 74.4 fL (81-100); NEUTROPHILS % (AUTO) 83.9 % (40-74); Platelet Count 193 bil/L (150-400)
[2016-12-01] MEDS ORDERED: 0.9% Sodium Chloride 1,000 ML IV ONE (23:25)
--- NOTE | 2016-12-01 23:53 | NUR ---
Consent for blood transfusion MD ordered two units of PRBC's to be transfused. Patient unable to sign, telephone order to daughter, ANDREINA Alcazar, who gave verbal consent over the phone to two RN's at [id number]. Daughter also informed of plan to transfer patient to second floor, room 2026.
[2016-12-02] VITALS (8 sets, daily range): BP systolic 77–107; BP diastolic 41–88; PULSE 43–60; RESP 10–17; O2SAT 96–100
--- NOTE | 2016-12-02 00:11 | ABG ---
DateTimeAnalyzed 00:05:00 -_ pH ____7.162 - 7.350 7.450 pCO2 ___48.7__ -mmHg 35.0 45.0 pO2 ___93.9__ -mmHg 69.0 116 HCO3- ___16.7__ -mmol/L 22.0 26.0 ABE __-10.8__ -mmol/L -2.0 2.0 tHb ____7.3__ -g/dL O2Hb ___93.3__ -% COHb ____0.9__ -% MetHb ____1.8__ -% sO2 ___95.9__ -% 25.0 FIO2 ___35.0__ -% Drawn By LT - Date/Time Notified____ 00:11:00 -_ Notified By LT - Notified Whom DR TALEGHANI - B 753 -mmHg tO2 ____9.7__ -Vol% Milton test _Positive -
[2016-12-02] MEDS ORDERED: Atropine 1 mg/10 mL (Code) Syringe ONE (00:25)
[2016-12-02] MEDS ORDERED: Hydrocortisone 50 mg/mL 2 mL Inj IVPUSH ONE (00:40)
--- NOTE | 2016-12-02 00:49 | PCM.PNMED ---
Subjective Date of Service Dec 02, 2016 Subjective Called by nurse that patient was not responsive and Also Hypotensive Ordered Narcan 0.4 mg IV x 2 with no difference as well as NS boluses Labs ordered and reviewed ABG showed acidosis pH 7.1 Transport to CCU with plans to intubate but patient woke up Assessment: Acute encephalopathy due to metabolic acidosis Hypotension due to hypovolemia or possible Adrenal insufficiency Plan: Bicarb drip ordered Hydrocortisone 100 mg IV checking random cortisol IV fluids resuscitations Nathaniel Saucedo MD Dec 02, 2016 00:49
[2016-12-02] MEDS: Sodium Bicarb 8.4% Inj 75 MEQ in 0.45% Sodium Chloride 1,000 ML IV SCH ×3 (01:21→22:24)
[2016-12-02] MEDS: 0.9% Sodium Chloride 250 ML IV SCH ×2 (01:22→22:25)
--- NOTE | 2016-12-02 01:26 | NUR ---
Transfer Patient transferred to room 3014 at 0025, CCU status per MD order. Patient was awake with eyes open during transfer, but then fell asleep shortly after arriving to room 3014. Bedside report given to CCU RN, Rizwan Zacarias. All of patient's belongings went with patient. Patient's daughter, Omid, was in patient's room by 0045, updated on reason for transfer.
[2016-12-02] MEDS ORDERED: DOPamine 800 mg/250 mL D5W Premix IV ONE ×2 (02:12→20:44)
[2016-12-02] MEDS: Norepineph 8,000 mCg/250 mL NS 8,000 MCG in IV Premix 1 EACH IV SCH (02:37)
--- NOTE | 2016-12-02 03:52 | PCM.PROC ---
Procedure Note Date of Service: Dec 02, 2016 Pre Procedure Diagnosis: Hypotension/bradycardia Post Procedure Diagnosis: Hypertension/bradycardia Procedure: Central Venous Catheter (CVC, Central Line) Placement Indication: Hemodynamic monitoring, medication administration Resident: Basilio Stewart D.O. Attending: Brittany Timmons M.D. The patient was placed in a dependent position appropriate for central line placement based on the vein to be cannulated. The patients right neck was prepped and draped in sterile fashion. 1% Lidocaine was used to anesthetize the surrounding skin area. A triple lumen catheter was introduced into the the internal jugular using the Seldinger technique and under ultrasound guidance. The catheter was threaded smoothly over the guide wire and appropriate blood return was obtained. Each lumen of the catheter was evacuated of air and flushed with sterile saline. The catheter was then secured to the skin with triple lumen catheter securement anchor and Tegaderm sterile dressing applied. Attending &Resident was present for the entire procedure. Estimated Blood Loss: 5mL The patient tolerated the procedure well and there were no complications. follow up CXR shows no pneumothorax. Tip is in the Right atrium and is pulled back 4 cm. Indication for Procedure: asked by hosptialist to help with placing central line on this critical ICU patient Attending Statement patient seen and examined Direct supervision, gowned and gloved, with ultra sound guidance of central line agree with documentation as above BASILIO STEWART DO Dec 02, 2016 03:40 Brittany Timmons MD Dec 03, 2016 18:05
[2016-12-02 05:16] LABS: Mean Corpuscular Hemoglobin 23.4 pg (27.0-35.0); Mean Corpuscular Volume 75.4 fL (81-100)
[2016-12-02 05:35] LABS: INR 1.04 ratio
--- NOTE | 2016-12-02 05:44 | ABG ---
DateTimeAnalyzed 05:38:50 -_ pH ____7.177 - 7.350 7.450 pCO2 ___42.5__ -mmHg 35.0 45.0 pO2 ___73.6__ -mmHg 69.0 116 HCO3- ___15.7__ -mmol/L 22.0 26.0 ABE __-11.6__ -mmol/L tHb ___10.0__ -g/dL O2Hb ___92.0__ -% COHb ____0.6__ -% 1.5 MetHb ____0.2__ -% sO2 ___92.7__ -% FIO2 ___21.0__ -% Drawn By MD - Date/Time Notified____ 05:44:00 -_ Spontaneous_RR 19 -b/min Liter_Flow ____5.00_ -L/min Oxygen Device 1 __CANNULA - Notified By MD - Notified Whom RN R.JUAREZ - K+ ____4.6__ -mmol/L tO2 ___13.1__ -Vol% OrderingPhysicianInitials mf - Milton test _Positive -
--- NOTE | 2016-12-02 05:46 | NUR ---
Transfer to CCU Pt emergently transferred to CCU r/t hypotension, AMS, ABG lab values. 3rd Large Bore IV started and 2L NS infusing wide open. MAP ranging from 40-50. Blood sugar normal/high. Pt started on Bicarb gtt. 2 Units of PRBCs infused with 2 awaiting downstairs for low H/H and patient being highly symptomatic. Levophed started through peripheral line until central line could be placed. Pt's BP not responsive to low dose levophed, fluids nor PRBC administration. Dopamine gtt started. ER MD came up to CCU to place central line. Pt tolerated procedure well. Pt's daughter at bedside all night. Repeat morning ABG showed little improvement in pH, decreased Co2 to 43, pO2 73.6 and worsening bicarb despite bicarbonate gtt. Dr. Saucedo called with results. Will consult with Nephrology. Also, ordered stool culture to r/o C. Diff.
[2016-12-02 05:47] LABS: Magnesium 2.3 mg/dL (1.6-2.6); Phosphorus 4.8 mg/dL (2.5-4.9)
[2016-12-02] MEDS: Insulin Human REGular 300 Unit/3 mL Inj SUBQ SCH ×4 (08:22→21:15)
--- NOTE | 2016-12-02 10:04 | DRSVH ---
PROCEDURE: X-RAY CHEST ONE VIEW, PORTABLE ([id number]) INDICATIONS: central line placement TECHNIQUE: One view of the chest was acquired. COMPARISON: [facility], CR, XR CHEST 1VW (PORTABLE), 11/28/2016, 14:17. FINDINGS: Surgical changes and devices: Right internal jugular catheter demonstrated with the tip extending in to the inferior right atrium. Recommend withdrawal by approximately 6-7 cm. Lungs and pleura: No pleural effusions or pneumothorax. There are low lung volumes with pulmonary v ascular prominence compatible with mild edema. Left retrocardiac opacities are present consistent wit h consolidation or atelectasis. Mediastinum: Mediastinal contours appear unchanged. Heart size is at the upper limits of normal. Bones and chest wall: No suspicious bony lesions. Overlying soft tissues appear unremarkable. IMPRESSION: 1. Central venous catheter tip extends into the right atrium. Recommend withdrawal by approximately 6-7 cm. 2. Pulmonary edema and left retrocardiac atelectasis or consolidation. 3. No evidence of pneumothorax. Dictated by: Keith Robertson M.D. on 12/02/2016 at 9:43 Approved by: Keith Robertson M.D. on 12/02/2016 at 10:03
--- NOTE | 2016-12-02 14:59 | NUR ---
NUTRITION ASSESSMENT: ASSESS: Pt is a 71yo M admitted for hypoglycemia and MURPHY. Pt was transferred to CCU overnight due to hypotension and AMS. Pt has been experiencing increased diarrhea over the last couple years. GI is following and pt is to have small bowel follow through today. There is concern for either dumping syndrome or vasoneuropathy from diabetes. Pt is currently on a heart healthy/diabetic diet. He has been tolerating PO well at 100% of most meals. PMHX: Peripheral neuropathy, DM, HTN, Anemia, Legally blind, Recent GI bleed, chronic intermittent diarrhea for past 2 years. LABS: Reviewed. Cl 112, CO2 15, Bun 39, [employer] Level [employer] 2.11, Glu 248, Ca 7.5 MEDS: Reviewed. GI: Diarrhea, BMx1 12/02 SKIN: No Pu per WC CURRENT WTS: 76.2kg, BMI 23.4kg/m2, admit wt 76.9kg DIET: HH/CC, PO 100% EST. NEEDS: Kcals: 1920-2310kcal/day (25-30kcal/kg) Pro: 75-95g/day (1.0-1.2g/kg) NUTRITION DIAGNOSIS: 1.) Altered GI function related to unknown etiology as evidence by persistent diarrhea NUTRITION INTERVENTION: 1.) Received consult for diet education for dumping-syndrome, however it has not been determined if pt truly is experiencing dumping syndrome. Will continue to monitor for results of small-bowel follow through to see if education on this diet is appropriate. MONITOR / EVAL: GI, labs, wt, PO, POC, nutrition status. Will continue to monitor per moderate nutrition risk guidelines.
--- NOTE | 2016-12-02 15:59 | NUR ---
pt. deferred due to his hunger. Planned with daughter to try again in the morning. Per Hubbard, OTR/L
--- NOTE | 2016-12-02 16:37 | PCM.PNMED ---
Subjective Date of Service Dec 02, 2016 Subjective When I saw him earlier today, he was doing well. And he was in middle of getting small bowel follow through. I am unclear of the patient transferred. Exam Vital Signs Vital Sign - Last Date Time Temp Pulse Resp B/P Pulse Ox O2 Delivery O2 Flow Rate FiO2 12/02/16 16:00 35.3 50 16 81/62 99 Room Air 12/02/16 08:00 4.00 Intake and Output 12/01/16 12/01/16 12/02/16 Cumulative From/Thru 15:00 23:00 07:00 11/28/16 14:13 - 12/02/16 06:15 Intake Total 1293 ml 5081 ml 72209 ml Output Total 425 ml 275 ml 3150 ml Balance 868 ml 4806 ml 7752 ml Intake Oral 600 ml 15 ml 3055 ml IV Total 693 ml 5066 ml 7847 ml Output Urine Total 425 ml 275 ml 2750 ml Stool Total 400 ml # Voids 2 # Bowel Movements 3 1 11 Exam Patient was alert and oriented comfortable Head and neck no icterus Lungs clear Cardiovascular regular rate rhythm and normal S1 and S2 Abdomen soft nontender mildly distended with no marked bowel sounds Extremities no pitting edema at the ankles Lab and Diagnostics Result Diagram: 12/02/16 0459 12/02/16 0459 X-Rays, CTs and MRIs Date of Service: 11/28/16 1409 PROCEDURE: X-RAY CHEST ONE VIEW, PORTABLE ([id number]) IMPRESSION: Shallow inspiration causes bibasliar atelectasis left greater than right. Infection is much less likely. Otherwise negative chest. Dictated by: Levi Malone M.D. on 11/28/2016 at 14:33 Approved by: Levi Malone M.D. on 11/28/2016 at 14:35 12-lead ECG NSR at about 70bpm. there is minimall ST elevation in the lateral leads but unchanged compared to the EKG from 11/20/16 Assessment & Plan This is a gentleman who had persistent diarrhea who came in with acute chronic renal insufficiency with multiple diarrhea. The etiology of the diarrhea is probably dumping syndrome or vasoneuropathy from the diabetes. When he eats something, he quickly has diarrhea. Colonoscopy was apparently done. They did not do random biopsies at that time, but if we have no other cause, we may have to repeat this eventually with random biopsies. Gastric emptying study was done. There is significant gastroparesis. This would support possible dumping syndrome because of inability of his fundus to relax. I spoke with the radiologist and they did not to liquid phase of gastric emptying test. Therefore please obtain small bowel follow-through mainly for transit time. Awaiting small bowel follow through test. Continue Imodium with meals. Continue lactose-free diet. Also with continue on anti-dumping diet as well. If small bowel follow-through shows normal transit time, treat with rifaximin 550 twice a day for about 10 days. At the same time we will could do stool fat measurement as well as fecal leukocytes. Anemia still noted hemoglobin stable. Will need further workup. This can be done as an outpatient when he follows up with in the GI clinic. If there is evidence of decreasing hemoglobin, please order a red tag scan. Addendum: The patient's transfer. Above-noted was based on my examination around 11 AM. GI Prophylaxis: Proton Pump Inhibitor VTE Prophylaxis: SCDs Resuscitation Status: CPR: Attempt Resuscitation (discussed and verified with patient) Arvin Parikh MD Dec 02, 2016 16:37
--- NOTE | 2016-12-02 16:50 | PCM.PNNEPH ---
Jared Goodrich H DO 12/02/16 1650: Subjective Date of Service Dec 02, 2016 Subjective Patient is a 71yom with MHx significant for long-standing uncontrolled insulin- dependent diabetes type II, hypertension, and CKD who was recently diagnosed with MURPHY secondary to probably ischemia due to GI bleed associated with NSAID abuse, found unconsciousness due to hypoglycemia and admitted with Nephrology consultation for recurrent MURPHY. Overnight, patient was found with decrease mentation, SBP trended to the 70's with HR40's after a dose of morphine 2mg, thus transferred to ICU for pressor support and closer monitoring. He briefly received norepinephrine, dopamine, in addition to fluids plus pRBC. BP bounced back in the AM. Per daughter, he had had episodes of decrease LOC and low BP at home before. On interview, patient denies any new complaints. No significant diarrhea. Creatinine 2.11 without significant changes. Exam Vital Signs Vital Sign - Last Date Time Temp Pulse Resp B/P Pulse Ox O2 Delivery O2 Flow Rate FiO2 12/02/16 16:00 35.3 50 16 81/62 99 Room Air 12/02/16 08:00 4.00 Intake and Output 12/01/16 12/01/16 12/02/16 Cumulative From/Thru 15:00 23:00 07:00 11/28/16 14:13 - 12/02/16 06:15 Intake Total 1293 ml 5081 ml 45680 ml Output Total 425 ml 275 ml 3150 ml Balance 868 ml 4806 ml 7752 ml Intake Oral 600 ml 15 ml 3055 ml IV Total 693 ml 5066 ml 7847 ml Output Urine Total 425 ml 275 ml 2750 ml Stool Total 400 ml # Voids 2 # Bowel Movements 3 1 11 Exam Gen: Lying comfortably at 30degree head tilt HEENT: PERRLA, Anicteric sclerae, Neck: supple, no JVD, Cardio: Regular rate and rhythm with no murmurs, rubs, or gallops appreciated Pulm: b/l air sound, no crackles, wheezes, or rhonchi. Normal respiratory effort with no use of accessory muscles. Abd: positive bowel tone. Soft, nontender, nondistended. Extremities: No clubbing, cyanosis, edema, or lymphadenopathy appreciated. Skin: Normal temperature and texture; normal skin turgor, no rash, Neuro: moving equally on 4 limbs. Psyc: Normal mood and affect. AoX3 Lab and Diagnostics Result Diagram: 12/02/1645812/02/16458 X-Rays, CTs and MRIs Date of Service: 11/28/16 1409 PROCEDURE: X-RAY CHEST ONE VIEW, PORTABLE ([id number]) IMPRESSION: Shallow inspiration causes bibasliar atelectasis left greater than right. Infection is much less likely. Otherwise negative chest. Dictated by: Levi Malone M.D. on 11/28/2016 at 14:33 Approved by: Levi Malone M.D. on 11/28/2016 at 14:35 12-lead ECG NSR at about 70bpm. there is minimall ST elevation in the lateral leads but unchanged compared to the EKG from 11/20/16 Plan Impression Patient is a 71yom with MHx significant for long-standing uncontrolled insulin- dependent diabetes type II, hypertension, and CKD who was recently diagnosed with MURPHY secondary to probably ischemia due to GI bleed associated with NSAID abuse, found unconsciousness due to hypoglycemia and admitted with Nephrology consultation for recurrent MURPHY. Given bladder residual volume 800cc and US renal sonogram with kidneys unremarkable, MURPHY likely obstructive uropathy: neurogenic bladder, BPH. Hypotension, bradycardia overnight, likely unrelated to coreg 12.5mg bid. He only received 1 dose of 1/2 home strength yesterday AM. More likely, this is autonomic dysregulation 2nd to chronic uncontrolled DM II. He has gastropareses and peripheral neuropathy, in addition to retinopathy and nephropathy. Problem list #MURPHY on CKD secondary to obstructive uropathy and NSAIDs-induced MURPHY. #Nephropathy #Uncontrolled insulin-dependent diabetes type II #Uncontrolled hypertension #Iron deficient anemia #HFpEF Plan: #Cont to closely monitor BP, maintain SBP>90mmgh, MAP>65. Concern for renal hypoperfusion #D/c coreg 12.5mg BID.hold lisinopril and chlorthalidone #Monitor H&H Chanell Dutton MD 12/03/16 1144: Exam Lab and Diagnostics Result Diagram: 12/02/1645812/02/16458 Plan Impression Patient was seen and examined. Case discussed with resident. Agreed as above. Yanick Navarro MD. Pg [phone]. Jared Goodrich DO Dec 02, 2016 16:50 Chanell Dutton MD Dec 03, 2016 11:44
--- NOTE | 2016-12-02 16:53 | NUR ---
Hydrodynamics/Tele/PO At start of shift, Dopamine was running at 2.5 mcgs. That was quickly weaned off and patient has maintained a MAP >65 t/o shift. Song is draining adequate urine. Bicarb gtt continues at 100 ml/hr. Tele shows SB-SR, 40s-60s, with 1st degree block. Patient has remained NPO for Small Bowel Follow through study. Once study is complete, patient may eat. Family at bedside, supportive. Continuing with POC.
--- NOTE | 2016-12-02 17:02 | PCM.PNMED ---
Subjective Date of Service Dec 02, 2016 Subjective Follow up for diarrhea, acute renal failure, dehydration, encephalopathy. hypotension Patient become hypotensive overnight and was obtunded. He had a short run on off epinephrine for hypertension. This morning patient is off pressor and blood pressure is around 100 systolic. He denied any chest pain or shortness of breath, no fever no chills Exam Vital Signs Vital Sign - Last Date Time Temp Pulse Resp B/P Pulse Ox O2 Delivery O2 Flow Rate FiO2 12/02/16 16:00 Supplement Oxygen 12/02/16 16:00 35.3 50 16 81/62 99 12/02/16 08:00 4.00 Intake and Output 12/01/16 12/01/16 12/02/16 Cumulative From/Thru 15:00 23:00 07:00 11/28/16 14:13 - 12/02/16 06:15 Intake Total 1293 ml 5081 ml 44039 ml Output Total 425 ml 275 ml 3150 ml Balance 868 ml 4806 ml 7752 ml Intake Oral 600 ml 15 ml 3055 ml IV Total 693 ml 5066 ml 7847 ml Output Urine Total 425 ml 275 ml 2750 ml Stool Total 400 ml # Voids 2 # Bowel Movements 3 1 11 Exam Gen : Chronically ill appearing, in no acute distress HEENT : PERRL, sclerae anicteric. Neck: Supple, trachea midline, no JVD, no cervical lymphadenopathy Chest: Normal respiratory effort, no use alert is remorseful. Long long clinically bilaterally, no wheezing Heart S1-S2 regular rate and rhythm no murmur no gallop Abdomen: Soft non tender, non distended, bowel sounds audible. Extremities: No edema, no calf tenderness, no cyanosis Skin: No rash, no ulcers. Neuro : Somewhat confused otherwise , non focal IVs and Medications Medications Reviewed: Medications were reviewed in detail Lab and Diagnostics Result Diagram: 12/02/16 0459 12/02/16 0459 X-Rays, CTs and MRIs Date of Service: 11/28/16 1409 PROCEDURE: X-RAY CHEST ONE VIEW, PORTABLE ([id number]) IMPRESSION: Shallow inspiration causes bibasliar atelectasis left greater than right. Infection is much less likely. Otherwise negative chest. Dictated by: Levi Malone M.D. on 11/28/2016 at 14:33 Approved by: Levi Malone M.D. on 11/28/2016 at 14:35 12-lead ECG NSR at about 70bpm. there is minimall ST elevation in the lateral leads but unchanged compared to the EKG from 11/20/16 Assessment & Plan 1. Acute UTI. Present on admission. - On empiric IV Ceftriaxone (day 3) - Followup pending urine culture 2.Acute kidney injury, present on admission. -IVF - renal U/S is unremarkable -Monitor renal function and electrolytes . Consider nephrology consult 3. Acute on chronic diarrhea, present on admission. - Unclear etiology with ongoing workup by GI as outpatient - Stool PCR - Bowel emptying pending. _ Imodium after Po intake. GI following 4. Acute hypoglycemia with history of diabetes mellitus, present prior to admission. - Likely due to increased dose of Lantus recently along with continued Glipizide despite recent MURPHY and exacerbated by underlying infection and UTI - Hold Lantus and stop Glipizide - Cover with low dose ISS for now until certain sugars are stable 5. Acute hypothermia. Present on admission. Resolved 6. Encephalopahty : Acute . 7. Hypotension: Does not seem to be sepsis related. Probably fluid depletion from diarrhea. Possible adrenal insufficiency _ Patient has a short run of pressor overnight. Systolic BP still in the soft side but stable. Started on cortisol supplement . Level pending. Add Midodrine 5 mg 4 tome daily meanwhile 8. Mildly elevated Troponin. - Possible demand ischemia and amplified by underlying MURPHY - Recheck of Trop seems to be trending down - Check Echo pending - Follow on Tele 9. Chronic anemia with recent history of GI bleed. - H/H is currently stable at the same level of recent hospitalization and discharge This is a very sick patient with intractable diarrhea and possible dumping syndrome . Somewhat better today but was hypotensive and unresponsive briefly overnight requring short use of pressor. Plan of care as above and being adjusted as per clinical course. Plan o care discussed with family members at bedside This is a gentleman who had persistent diarrhea who came in with acute chronic renal insufficiency with multiple diarrhea. The etiology of the diarrhea is probably dumping syndrome or vasoneuropathy from the diabetes. When he eats something, he quickly has diarrhea. Colonoscopy was apparently done. They did not do random biopsies at that time, but if we have no other cause, we may have to repeat this eventually with random biopsies. Gastric emptying study was done. There is significant gastroparesis. This would support possible dumping syndrome because of inability of his fundus to relax. I spoke with the radiologist and they did not to liquid phase of gastric emptying test. Therefore please obtain small bowel follow-through mainly for transit time. Awaiting small bowel follow through test. Continue Imodium with meals. Continue lactose-free diet. Also with continue on anti-dumping diet as well. If small bowel follow-through shows normal transit time, treat with rifaximin 550 twice a day for about 10 days. At the same time we will could do stool fat measurement as well as fecal leukocytes. Anemia still noted hemoglobin stable. Will need further workup. This can be done as an outpatient when he follows up with in the GI clinic. If there is evidence of decreasing hemoglobin, please order a red tag scan. Addendum: The patient's transfer. Above-noted was based on my examination around 11 AM. GI Prophylaxis: Proton Pump Inhibitor VTE Prophylaxis: SCDs Resuscitation Status: CPR: Attempt Resuscitation (discussed and verified with patient) Time spent 35 minutes Walt Mcmillan MD Dec 02, 2016 17:02
--- NOTE | 2016-12-02 20:21 | DRSVH ---
PROCEDURE: X-RAY SMALL BOWEL BARIUM STUDY ([id number]) INDICATIONS: 71-year-old male with delayed gastric emptying. Assess small bowel transit time. COMPARISON: [place], [place], [place] GASTRIC EMPTYING STUDY, 12/01/2016, 9:24. 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 No suspicious abdominal calc ifications. Visualized solid organ contours appear normal. No suspicious bony abnormalities. Right femoral neck derotational screws are present from prior fracture fixation. Small bowel: Transit time of barium through the small bowel was measured at 9 hours 50 minutes on se rial radiographs. There is transit of ingested contrast into the distal small bowel at the 2 hour an d 50 minute tiny, but no detectable contrast is noted within the ascending colon until the 9 hour 50 minute tiny. Small bowel loops are of normal caliber throughout. Mucosal folds are smooth and of nor mal thickness. No strictures, intraluminal masses, or extrinsic mass effects are noted. IMPRESSION: Normal transit time of contrast into the distal small bowel. However, there is markedly d elayed transit from the distal small bowel into the ascending colon, without morphologic changes to s uggest distal small bowel obstruction. Dictated by: Zach Mahan M.D. on 12/02/2016 at 20:14 Approved by: Zach Mahan M.D. on 12/02/2016 at 20:19
[2016-12-02] MEDS: Insulin GLARgine 100 Unit/mL Syringe SUBQ SCH (21:00)
[2016-12-02] MEDS ORDERED: Insulin GLARgine 100 Unit/mL Syringe SUBQ ONE (21:40)
[2016-12-02] MEDS ORDERED: Albuterol-Ipratropium 3 mL Inhalation Solution NEB PRN (21:45)
--- NOTE | 2016-12-02 22:19 | DRSVH ---
PROCEDURE: X-RAY CHEST ONE VIEW, PORTABLE ([id number]) INDICATIONS: 71 year-old male with shortness of breath. TECHNIQUE: One view of the chest was acquired. COMPARISON: [facility], CR, XR CHEST 1VW (PORTABLE), 12/02/2016, 2:57. [facility], CR, XR CHEST 1VW (PORTABLE), 11/28/2016, 14:17. [facility], CR, XR CHEST 1VW (PORT ABLE), 10/21/2015, 18:25. FINDINGS: Surgical changes and devices: Right internal jugular central venous catheter is again noted and. Lungs and pleura: No pleural effusions or pneumothorax. Lung volumes are decreased, with bronchovasc ular crowding. There is persistent retrocardiac opacity. Mediastinum: Mediastinal contours appear normal. Heart size is normal. Bones and chest wall: No suspicious bony lesions. 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 Overlying soft tissues appear unremarkable. IMPRESSION: 1. Decreased lung volumes, with persistent retrocardiac atelectasis, aspiration, or pneumonia. 2. Bilateral congenital glenoid hypoplasia again noted. Dictated by: Zach Mahan M.D. on 12/02/2016 at 22:16 Approved by: Zach Mahan M.D. on 12/02/2016 at 22:18
[2016-12-03] VITALS (9 sets, daily range): BP systolic 115–166; BP diastolic 63–88; PULSE 54–62; RESP 10–18; O2SAT 96–100
[2016-12-03] MEDS ORDERED: 0.9% Sodium Chloride 500 ML IV ONE (00:20)
[2016-12-03] MEDS: Norepineph 8,000 mCg/250 mL NS 8,000 MCG in IV Premix 1 EACH IV SCH (01:55)
[2016-12-03 04:33] LABS: BASOPHILS % (AUTO) 0.1 % (0-3); EOSINOPHILS % (AUTO) 0.7 % (0-5); MONOCYTES % (AUTO) 6.2 % (4-12); Mean Corpuscular Hemoglobin 23.3 pg (27.0-35.0); NEUTROPHILS % (AUTO) 86.6 % (40-74); Platelet Count 223 bil/L (150-400)
--- NOTE | 2016-12-03 05:53 | NUR ---
Hypotension/Bradycardia Awake and oriented during start of shift. AM nurse made AM Hospitalist aware of trending low BP/Map tonight. Bolus 250 cc given by am nurse. Instructed to give Midodrine and monitor BP. Md instruction to start Norepinephrine if Midodrine does not work for BP. Pt unable to take Midodrine during change of shift due to NPO status until Barium xray done around 1999. Pt started eating after Xray done. He was eating and took Midodrine. Per family, pt started to feel nauseous and had vomited after he finished eating. Heart rate trending down as low as 37 and BP down to 65/54. Pt was getting lethargic. Md made aware. Dopamine started and Bolus 500 cc given. Dopamine at 5 mcg/kg/min when noted HR started trending up to 50s to low 60s. BP 120-150s SBP. Map >65. Pt was more awake and conversant with staff. Tried to wean down Dopamine to 2.5 mcg/kg/min at this time. Heart rate sustaining in mid to high 50s. SBP 120-140s. Map >65. Pt c/o feeling wheezy. Faint wheeze noted but mostly audible upper airway wheeze. Pt instructed to cough often while awake. Md ordered CXR and nebulizer treatment prn. 02sat in mid to high 90s on 1L. Telemetry SB with 1 avb in 50s. Song with 400 cc output noted.
[2016-12-03] MEDS: Insulin Human REGular 300 Unit/3 mL Inj SUBQ SCH ×4 (07:30→20:59)
[2016-12-03] MEDS: Sodium Bicarb 8.4% Inj 75 MEQ in 0.45% Sodium Chloride 1,000 ML IV SCH (09:31)
--- NOTE | 2016-12-03 11:10 | PCM.PNNEPH ---
JoleenJared Booker DO 12/03/16 1110: Subjective Date of Service Dec 03, 2016 Subjective Patient is a 71yom with MHx significant for long-standing uncontrolled insulin- dependent diabetes type II, hypertension, and CKD who was recently diagnosed with MURPHY secondary to probably ischemia due to GI bleed associated with NSAID abuse, found unconsciousness due to hypoglycemia and admitted with Nephrology consultation for recurrent MURPHY. Overnight, patient had another episode of hypotension, bradycardia lasting about 3hrs. This episode was after a meal. Thus, team started dopamine and bolus NS with good effects. On interview, patient denies any new complaints. He denies any diarrhea overnight. No fever, chills. Nor lightheadedness, dizziness. Cr 1.96, down from 2.11. Adequate urine output. Exam Vital Signs Vital Sign - Last Date Time Temp Pulse Resp B/P Pulse Ox O2 Delivery O2 Flow Rate FiO2 12/03/16 04:25 Supplement Oxygen 12/03/16 04:25 36.0 55 12 116/71 98 1.00 Intake and Output 12/02/16 12/02/16 12/03/16 Cumulative From/Thru 15:00 23:00 07:00 11/28/16 14:13 - 12/03/16 05:47 Intake Total 1739 ml 2342 ml 65587 ml Output Total 300 ml 400 ml 3850 ml Balance 1439 ml 1942 ml 56650 ml Intake Oral 120 ml 3175 ml IV Total 1739 ml 2222 ml 86181 ml Output Urine Total 300 ml 400 ml 3450 ml Stool Total 400 ml # Voids 2 # Bowel Movements 0 11 Exam Gen: Lying comfortably at 30degree head tilt HEENT: PERRLA, Anicteric sclerae, Neck: supple, no JVD, Cardio: Regular rate and rhythm with no murmurs, rubs, or gallops appreciated Pulm: b/l air sound, no crackles, wheezes, or rhonchi. Normal respiratory effort with no use of accessory muscles. Abd: positive bowel tone. Soft, nontender, nondistended. Extremities: No clubbing, cyanosis, edema, or lymphadenopathy appreciated. Skin: Normal temperature and texture; normal skin turgor, no rash, Neuro: moving equally on 4 limbs. Psyc: Normal mood and affect. AoX3 Song catheter present Right IJ Lab and Diagnostics Result Diagram: 12/03/1641912/03/16419 X-Rays, CTs and MRIs Date of Service: 11/28/16 1409 PROCEDURE: X-RAY CHEST ONE VIEW, PORTABLE ([id number]) IMPRESSION: Shallow inspiration causes bibasliar atelectasis left greater than right. Infection is much less likely. Otherwise negative chest. Dictated by: Levi Malone M.D. on 11/28/2016 at 14:33 Approved by: Levi Malone M.D. on 11/28/2016 at 14:35 12-lead ECG NSR at about 70bpm. there is minimall ST elevation in the lateral leads but unchanged compared to the EKG from 11/20/16 Plan Impression Patient is a 71yom with MHx significant for long-standing uncontrolled insulin- dependent diabetes type II, hypertension, and CKD who was recently diagnosed with MURPHY secondary to probably ischemia due to GI bleed associated with NSAID abuse, found unconsciousness due to hypoglycemia and admitted with Nephrology consultation for recurrent MURPHY. Given bladder residual volume 800cc and US renal sonogram with kidneys unremarkable, MURPHY likely obstructive uropathy: neurogenic bladder, BPH. Hypotension, bradycardia again overnight, not currently on any beta blockers. Given this occur post prandially, possible dumping syndrome vs autonomic dysregulation 2nd to chronic uncontrolled DM II. He has gastropareses and peripheral neuropathy, in addition to retinopathy and nephropathy. Problem list #MURPHY on CKD secondary to obstructive uropathy and NSAIDs-induced MURPHY. #Nephropathy #Uncontrolled insulin-dependent diabetes type II #Uncontrolled hypertension #Iron deficient anemia #HFpEF Plan: #Cont to closely monitor BP, maintain SBP>90mmgh, MAP>65. Concern for renal hypoperfusion #Holding anti-hypertensive meds #Bladder training today. #Recommend HAIM-I upon discharge for DMII, proteniuria. #Abstain from nephrotoxic medications. Chanell Dutton MD 12/03/16 1145: Exam Lab and Diagnostics Result Diagram: 12/03/1641912/03/16419 Plan Impression Patient was seen and examined. Case discussed with resident. Agreed as above. D/c NaHCO3 gtt, start NaHCO3 PO. Start bladder training. Yanick Navarro MD. Pg [phone]. Jared Goodrich DO Dec 03, 2016 11:10 Chanell Dutton MD Dec 03, 2016 11:45
--- NOTE | 2016-12-03 13:17 | NUR ---
Evaluation completed. Please go to "Notes" then click on "Assessments and Notes" (bottom left corner of screen). Then select appropriate discipline tab on top of screen.
[2016-12-03] MEDS ORDERED: Sodium Chloride LOK Flush 10 mL Syringe IVFLUSH PRN ×2 (14:40)
--- NOTE | 2016-12-03 15:35 | DRSVH ---
PROCEDURE: X-RAY CHEST ONE VIEW, PORTABLE ([id number]) INDICATIONS: triple lumen cvl line placement TECHNIQUE: One view of the chest was acquired. COMPARISON: [facility], CR, XR CHEST 1VW (PORTABLE), 12/02/2016, 2:57. [facility], CR, XR CHEST 1VW (PORTABLE), 12/02/2016, 21:39. FINDINGS: Surgical changes and devices: Right IJ CVL present with tip projected over the right atrium. Tempora ry pacer lead tip projected over the mid heart. Lungs and pleura: Perihilar and basilar patchy air space opacities are present increased from previou s examination. Small pleural effusions. No pneumothorax. Mediastinum: Mediastinal contours appear normal. Heart size is normal. Bones and chest wall: No suspicious bony lesions. Overlying soft tissues appear unremarkable. IMPRESSION: 1. Support lines and tubes as above. 2. Increasing bilateral pulmonary opacities suspicious for worsening pulmonary edema and/or diffuse b ilateral multifocal pneumonia Dictated by: Fernando Hussein RRA Interpreted: Alia Hollins MD on 12/03/2016 at 15:30 Transcribed by: LAUREN on 12/03/2016 at 15:34 Approved by: Alia Hollins MD, PhD on 12/03/2016 at 16:12
[2016-12-03] MEDS: Heparin 5,000 Unit/mL Inj SUBQ SCH ×2 (16:37→23:46)
--- NOTE | 2016-12-03 16:41 | PCM.PNMED ---
Subjective Date of Service Dec 03, 2016 Subjective Follow up for hypotension , acute renal failure Patient seen and examined at bedside . He became hypotensive again overnight and was put on dopamine drip. He has no complains this morning except he wants to eat . He had a cough spell last night with dinner and is put NPO . No chest pain, no shortness of breath. No fever, no chills. Diarrhea subsided Exam Vital Signs Vital Sign - Last Date Time Temp Pulse Resp B/P Pulse Ox O2 Delivery O2 Flow Rate FiO2 12/03/16 16:00 36.5 54 12 136/81 99 Nasal Cannula 2.00 Intake and Output 12/02/16 12/02/16 12/03/16 Cumulative From/Thru 15:00 23:00 07:00 11/28/16 14:13 - 12/03/16 05:47 Intake Total 1739 ml 2342 ml 19473 ml Output Total 300 ml 400 ml 3850 ml Balance 1439 ml 1942 ml 98397 ml Intake Oral 120 ml 3175 ml IV Total 1739 ml 2222 ml 77864 ml Output Urine Total 300 ml 400 ml 3450 ml Stool Total 400 ml # Voids 2 # Bowel Movements 0 11 Exam Gen : Chronically ill appearing, In bed comfortably. HEENT : PERRL, sclerae anicteric. Neck: Supple, trachea midline, no JVD Chest: Normal respiratory effort, no use alert is remorseful. Long : Clear bilaterally, no wheezing, no crackles Heart : S1-S2 regular rate and rhythm no murmur no gallop. mildly bradycardic at 55-60 BPM Abdomen: Soft non tender, non distended, bowel sounds audible. Extremities: No edema, no calf tenderness, no cyanosis Skin: No rash, no ulcers. Neuro : AAO x 3. Grossly non focal IVs and Medications Medications Reviewed: Medications were reviewed in detail Lab and Diagnostics Result Diagram: 12/03/1641912/03/16419 X-Rays, CTs and MRIs Date of Service: 11/28/16 7419 PROCEDURE: X-RAY CHEST ONE VIEW, PORTABLE ([id number]) IMPRESSION: Shallow inspiration causes bibasliar atelectasis left greater than right. Infection is much less likely. Otherwise negative chest. Dictated by: Levi Malone M.D. on 11/28/2016 at 14:33 Approved by: Levi Malone M.D. on 11/28/2016 at 14:35 12-lead ECG NSR at about 70bpm. there is minimall ST elevation in the lateral leads but unchanged compared to the EKG from 11/20/16 Assessment & Plan 1. Acute UTI. Present on admission. - On empiric IV Ceftriaxone (day 3) -Urine culture grow mixte cheryl . Blood culture negative 2.Acute kidney injury, present on admission. -IVF - renal U/S is unremarkable -Monitor renal function and electrolytes . Nephrology p=fallowing. 3. Acute on chronic diarrhea, present on admission. - Unclear etiology with ongoing workup by GI as outpatient - Stool PCR negative - Bowel emptying report noted . - Imodium after Po intake. -Discussed with GI: Patient is scheduled for flex sigmoidoscopy and biopsy today 4. Acute hypoglycemia with history of diabetes mellitus, present prior to admission. - Likely due to increased dose of Lantus recently along with continued Glipizide despite recent MURPHY and exacerbated by underlying infection and UTI - Hold Lantus and stop Glipizide - Start sliding scale insulin for now and restart basal insulin once po intake resumed 5. Acute hypothermia and hypovolemic shock . 6. Encephalopathy : Acute . 7. Hypotension: Does not seem to be sepsis related. Probably fluid depletion from diarrhea. but diabetic autonomous neuropathy/ Dysfunction is in the differential Random cortisol level is within normal limits -Patient became hypotensive again overnight and went back to Dopamine drip despite adequate hydration. Diarrhea indeed subsided . Add Midodrine 5 mg 4 time daily once wean off dopamina. 8. Mildly elevated Troponin. - Possible demand ischemia and amplified by underlying MURPHY - Recheck of Trop seems to be trending down - Check Echo shows normal EF 9. Chronic anemia with recent history of GI bleed. - H/H is stable 10. Dysphagia > NPO for now pending MBS . Speech and swallow following Overall unchanged clinically . Hypotensive episode is still the main concern here . NPO due to dysphagia . Barium swallow is pending. Start D5NS @ 75 ml/hr whole NPO. Continue sliding scale insulin with coverage Case discussed with critical care who will see patient in consultation CBC, CMP in am This is a gentleman who had persistent diarrhea who came in with acute chronic renal insufficiency with multiple diarrhea. The etiology of the diarrhea is probably dumping syndrome or vasoneuropathy from the diabetes. When he eats something, he quickly has diarrhea. Colonoscopy was apparently done. They did not do random biopsies at that time, but if we have no other cause, we may have to repeat this eventually with random biopsies. Gastric emptying study was done. There is significant gastroparesis. This would support possible dumping syndrome because of inability of his fundus to relax. I spoke with the radiologist and they did not to liquid phase of gastric emptying test. Therefore please obtain small bowel follow-through mainly for transit time. Awaiting small bowel follow through test. Continue Imodium with meals. Continue lactose-free diet. Also with continue on anti-dumping diet as well. If small bowel follow-through shows normal transit time, treat with rifaximin 550 twice a day for about 10 days. At the same time we will could do stool fat measurement as well as fecal leukocytes. Anemia still noted hemoglobin stable. Will need further workup. This can be done as an outpatient when he follows up with in the GI clinic. If there is evidence of decreasing hemoglobin, please order a red tag scan. Addendum: The patient's transfer. Above-noted was based on my examination around 11 AM. GI Prophylaxis: Proton Pump Inhibitor VTE Prophylaxis: SCDs Resuscitation Status: CPR: Attempt Resuscitation (discussed and verified with patient) Time spent 35 minutes Walt Mcmillan MD Dec 03, 2016 16:41
[2016-12-03] MEDS: Dextrose 5% 0.9% NaCl 1,000 ML IV SCH (16:46)
--- NOTE | 2016-12-03 18:12 | PCM.PNMED ---
Subjective Date of Service Dec 03, 2016 Subjective Pt tired and appears there could be a swallowing issue. He denies CP or SOB. His bowel output has decreased significantly. Exam Vital Signs Vital Sign - Last Date Time Temp Pulse Resp B/P Pulse Ox O2 Delivery O2 Flow Rate FiO2 12/03/16 16:00 36.5 54 12 136/81 99 Nasal Cannula 2.00 Intake and Output 12/02/16 12/02/16 12/03/16 Cumulative From/Thru 15:00 23:00 07:00 11/28/16 14:13 - 12/03/16 05:47 Intake Total 1739 ml 2342 ml 79955 ml Output Total 300 ml 400 ml 3850 ml Balance 1439 ml 1942 ml 48821 ml Intake Oral 120 ml 3175 ml IV Total 1739 ml 2222 ml 43042 ml Output Urine Total 300 ml 400 ml 3450 ml Stool Total 400 ml # Voids 2 # Bowel Movements 0 11 Exam Pt is easily arousable and comfortable HEENT no icterus LUNG CTA CV RRR S1S2 Abd soft nt nd nabs Lab and Diagnostics Result Diagram: 12/03/16 0420 12/03/16 0420 X-Rays, CTs and MRIs Date of Service: 11/28/16 1409 PROCEDURE: X-RAY CHEST ONE VIEW, PORTABLE ([id number]) IMPRESSION: Shallow inspiration causes bibasliar atelectasis left greater than right. Infection is much less likely. Otherwise negative chest. Dictated by: Levi Malone M.D. on 11/28/2016 at 14:33 Approved by: Levi Malone M.D. on 11/28/2016 at 14:35 12-lead ECG NSR at about 70bpm. there is minimall ST elevation in the lateral leads but unchanged compared to the EKG from 11/20/16 Assessment & Plan This is a gentleman who had persistent diarrhea who came in with acute chronic renal insufficiency with multiple diarrhea. The etiology of the diarrhea is probably dumping syndrome or vasoneuropathy from the diabetes. When he eats something, he quickly has diarrhea. Colonoscopy was apparently done. They did not do random biopsies at that time, but if we have no other cause, we may have to repeat this eventually with random biopsies. Gastric emptying study was done. There is significant gastroparesis. SBFT showed 9 hours and 50 min transit time. It appears that paradoxically there is slow bowel motility. This is inconsistent with h/o diarrhea. He appears he failed swallow study and not eating. He has no diarrhea. For now, I would start feeding him if he passes swallow study tomorrow. I recommend starting Rifaximine 550 mg po twice daily for 10 days for bacterial overgrowth. Please reconsult if the diarrhea resumes. Pt has barium in the intestine. If no BM by tomorrow am, then would consider enemas and stool softners to prevent barium causing constipation. We were going to do flex sig with biopsy but it was cancelled due to low blood pressure. Anemia still noted but hemoglobin stable. Will need further workup. This can be done as an outpatient when he follows up with in the GI clinic. If there is evidence of decreasing hemoglobin, please order a red tag scan. This is a gentleman who had persistent diarrhea who came in with acute chronic renal insufficiency with multiple diarrhea. The etiology of the diarrhea is probably dumping syndrome or vasoneuropathy from the diabetes. When he eats something, he quickly has diarrhea. Colonoscopy was apparently done. They did not do random biopsies at that time, but if we have no other cause, we may have to repeat this eventually with random biopsies. Gastric emptying study was done. There is significant gastroparesis. This would support possible dumping syndrome because of inability of his fundus to relax. I spoke with the radiologist and they did not to liquid phase of gastric emptying test. Therefore please obtain small bowel follow-through mainly for transit time. Awaiting small bowel follow through test. Continue Imodium with meals. Continue lactose-free diet. Also with continue on anti-dumping diet as well. If small bowel follow-through shows normal transit time, treat with rifaximin 550 twice a day for about 10 days. At the same time we will could do stool fat measurement as well as fecal leukocytes. Anemia still noted hemoglobin stable. Will need further workup. This can be done as an outpatient when he follows up with in the GI clinic. If there is evidence of decreasing hemoglobin, please order a red tag scan. Addendum: The patient's transfer. Above-noted was based on my examination around 11 AM. GI Prophylaxis: Proton Pump Inhibitor VTE Prophylaxis: SCDs Resuscitation Status: CPR: Attempt Resuscitation (discussed and verified with patient) Arvin Parikh MD Dec 03, 2016 18:12
--- NOTE | 2016-12-03 18:49 | NUR ---
BP/restlessness Tried to titrate dopamine gtt down most of shift unsuccessfully, however towards end of shift, pt able to be off the gtt and maintain BP on his own. TELE SB with first degree block and PVCs. Towards end of shift, pt woke up disoriented and tried to get out of bed, had to be oriented to place and time. Did not seem to comprehend that he was on bedpan to have BM and could not just walk to bathroom on his own. Daughter at bedside throughout shift for reassurance for pt. Using medical associate service PRN. Frequent rounding, oral care and turns continue.
--- NOTE | 2016-12-03 19:06 | DRSVH ---
PROCEDURE: X-RAY CHEST ONE VIEW, PORTABLE ([id number]) INDICATIONS: check IJ placement TECHNIQUE: One view of the chest was acquired. COMPARISON: Prior chest plain film from earlier same day reviewed. FINDINGS: Surgical changes and devices: Central line from right internal jugular approach appears to have been withdrawn somewhat but still remains in the expected position of the atrial caval junction. There i s what appears to be an additional vascular catheter present from inferior approach extending superio rly towards the chest/abdomen junction. Lungs and pleura: No pleural effusions or pneumothorax. Lungs are abnormal again with a alveolar in filtration pattern that is patchy, and most prominent through the mid and lower lungs bilaterally sli ghtly greater on the left than the right. Alternatively this could be some external monitoring devic e and lead. Mediastinum: Mediastinal contours appear normal. Heart size is normal. Bones and chest wall: No suspicious bony lesions. Overlying soft tissues appear unremarkable. IMPRESSION: Persistent bilateral pneumonia pattern, slightly greater on the left than the right. Po ssible mild repositioning of the right internal jugular central venous catheter but it remains in a p osition that likely is at the atrial caval junction. Possible additional catheter from below, extend ing to the chest/abdomen junction versus monitoring device and lead. Please correlate clinically for this midline structure which also was present earlier same day. Dictated by: Lopez Wetzel M.D. on 12/03/2016 at 19:01 Approved by: Lopez Wetzel M.D. on 12/03/2016 at 19:04
[2016-12-03] MEDS: Piperacillin-Tazo 3.375 Gm Inj 3.375 GM in Dextrose 5% Minibag Plus 50 ML IV SCH (19:39)
[2016-12-03] MEDS: Insulin GLARgine 100 Unit/mL Syringe SUBQ SCH (21:00)
[2016-12-03] MEDS: 0.9% Sodium Chloride 250 ML IV SCH (23:25)
[2016-12-04] VITALS (8 sets, daily range): BP systolic 131–194; BP diastolic 65–96; PULSE 55–71; RESP 12–16; O2SAT 95–100
[2016-12-04] MEDS: Norepineph 8,000 mCg/250 mL NS 8,000 MCG in IV Premix 1 EACH IV SCH (01:55)
[2016-12-04 04:54] LABS: BASOPHILS % (AUTO) 0.3 % (0-3); EOSINOPHILS % (AUTO) 1.3 % (0-5); MONOCYTES % (AUTO) 7.7 % (4-12); Mean Corpuscular Hemoglobin 23.7 pg (27.0-35.0); Mean Corpuscular Volume 74.7 fL (81-100); NEUTROPHILS % (AUTO) 78.5 % (40-74); Platelet Count 170 bil/L (150-400)
[2016-12-04] MEDS: Dextrose 5% 0.9% NaCl 1,000 ML IV SCH (05:53)
--- NOTE | 2016-12-04 06:26 | NUR ---
Telemetry/BP Pt oriented to self but forgetful tonight. He is confuse at times of place and time. He needs reorientation often with some understanding by pt noted. Per pts daughter, he is more confuse during the night. Pt denies any pain/discomfort. SBP 113-140s. MAP >65. Telemetry SB 1 AVB HR with mid to high 50s. Dopamine gtt off since afternoon yesterday. 02sat in mid to high 90s on Ra. He noted to have x2 short episode of desaturations in 80s on RA during deep sleep. 02sat up to mid 90s once he woke up. 02 at 2L while sleeping. Social Daughters at bedside expressed frustration regarding pts NPO status and about Barium swallow not done yesterday. Explained to patient/family the plan and precaution why pts NPO. Family expressed frustration why the procedure was not done today and their father needed to be NPO for tonight. MD talked to family and answered their question/concern. Family understood about the need to be NPO until Barium swallow procedure will be done. Frequent oral care done.
[2016-12-04] MEDS: Insulin Human REGular 300 Unit/3 mL Inj SUBQ SCH ×4 (07:30→21:38)
[2016-12-04] MEDS: Piperacillin-Tazo 3.375 Gm Inj 3.375 GM in Dextrose 5% Minibag Plus 50 ML IV SCH ×2 (08:55→20:24)
[2016-12-04] MEDS: Heparin 5,000 Unit/mL Inj SUBQ SCH ×2 (08:55→17:18)
--- NOTE | 2016-12-04 09:17 | PCM.PNMED ---
Subjective Date of Service Dec 04, 2016 Subjective Follow up for hypoglycemia, hypotension, dysphagia, aspiration pneumonia. Patient is doing better today and has no complaints, though somewhat confused . No chest pain , no shortness of breath. Off Dopamine drip. Sytolic BP in the 150-160 Exam Vital Signs Vital Sign - Last Date Time Temp Pulse Resp B/P Pulse Ox O2 Delivery O2 Flow Rate FiO2 12/04/16 04:33 36.6 59 14 131/85 100 Room Air 12/04/16 00:00 2.00 Intake and Output 12/03/16 12/03/16 12/04/16 Cumulative From/Thru 15:00 23:00 07:00 11/28/16 14:13 - 12/04/16 06:20 Intake Total 605 ml 1059 ml 47335 ml Output Total 550 ml 450 ml 4850 ml Balance 55 ml 609 ml 67897 ml Intake Oral 236 ml 0 ml 3411 ml IV Total 369 ml 1059 ml 55403 ml Output Urine Total 550 ml 450 ml 4450 ml Stool Total 400 ml # Voids 2 # Bowel Movements 1 0 12 Exam Gen : NAD. Somewhat confused but NAD . HEENT : PERRL, sclerae anicteric. Neck: Supple, trachea midline, no JVD Chest: No deformity , no tenderness .Normal respiratory effort Long: Clear bilaterally, no wheezing, no crackles Heart S1-S2 regular rate and rhythm no murmur no gallop Abdomen: Soft non tender, non distended, bowel sounds audible. Extremities: No edema, no calf tenderness, no cyanosis Skin: No rash, no ulcers. Neuro : Grossly intact .Confused IVs and Medications Medications Reviewed: Medications were reviewed in detail Lab and Diagnostics Result Diagram: 12/04/1643912/04/16439 X-Rays, CTs and MRIs Date of Service: 11/28/16 1409 PROCEDURE: X-RAY CHEST ONE VIEW, PORTABLE ([id number]) IMPRESSION: Shallow inspiration causes bibasliar atelectasis left greater than right. Infection is much less likely. Otherwise negative chest. Dictated by: Levi Malone M.D. on 11/28/2016 at 14:33 Approved by: Levi Malone M.D. on 11/28/2016 at 14:35 12-lead ECG NSR at about 70bpm. there is minimall ST elevation in the lateral leads but unchanged compared to the EKG from 11/20/16 Assessment & Plan 1. Acute UTI. Present on admission. - On empiric IV Ceftriaxone (day 3). Ceftriaxone to be discontinued today -Urine culture grow mixte cheryl . Blood culture negative 2.Acute kidney injury, present on admission. -IVF: D5ns @ 75 ml/hr while NPO. Renal function improving . - renal U/S is unremarkable -Monitor renal function and electrolytes . Nephrology p=fallowing. 3. Acute on chronic diarrhea, present on admission.t - Stool PCR negative - Bowel emptying report noted and shows severe gastroparesis . -Discussed with GI: sigmoidoscopy and biopsy being arranged if symptoms recurs once PO intake resume. 4. Acute hypoglycemia with history of diabetes mellitus, present prior to admission. - Episode of hypoglycemia has been going on for a while and likely related to gastroparesis . I think long acting insulin should be avoided in this gentleman and a trial of pre-meal insulin is probably the best way to go - Start sliding scale insulin for now 5. Acute hypothermia and hypovolemic shock . Improved . Off pressors. 6. Encephalopathy : Acute . 1. Acute UTI. Present on admission. - On empiric IV Ceftriaxone (day 3) -Urine culture grow mixte cheryl . Blood culture negative 2.Acute kidney injury, present on admission. -IVF - renal U/S is unremarkable -Monitor renal function and electrolytes . Nephrology p=fallowing. 3. Acute on chronic diarrhea, present on admission. - Unclear etiology with ongoing workup by GI as outpatient - Stool PCR negative - Bowel emptying report noted . - Imodium after Po intake. -Discussed with GI: Patient is scheduled for flex sigmoidoscopy and biopsy today 4. Acute hypoglycemia with history of diabetes mellitus, present prior to admission. - Likely due to increased dose of Lantus recently along with continued Glipizide despite recent MURPHY and exacerbated by underlying infection and UTI - Hold Lantus and stop Glipizide - Start sliding scale insulin for now and restart basal insulin once po intake resumed 5. Acute hypothermia and hypovolemic shock . 6. Encephalopathy : Acute . 7. Hypotension: Does not seem to be sepsis related. Probably fluid depletion from diarrhea. but diabetic autonomous neuropathy/ Dysfunction is in the differential Random cortisol level is within normal limits . He is off Dopamine and BP is the higher side 8. Mildly elevated Troponin. - Possible demand ischemia and amplified by underlying MURPHY - Recheck of Trop seems to be trending down - Check Echo shows normal EF 9. Chronic anemia with recent history of GI bleed. - H/H is stable 10. Dysphagia > Seen by speech and swallow . MBS pending for today . 11. Aspiration Pneumonia : On zosyn NPO for now pending MBS . Speech and swallow evaluation and recommendation appreciated Patient looks quite better clinically. HE is off pressors and BP is on the high side today with systolic up to 160. I am leaning toward observing that and would avoid any antihypertensive medications of him at this time . I had a bed side meeting with GI this morning and discussed about his diarrhea . A trial of Xifaxan once PO intake resumed and see how that works . His diarrhea may be due to bacterial overgrowth. Barium swallow is pending for today and hopefully we can resume PO intake. His albumin level is low On D5NS @ 75 ml/hr while NPO. Continue sliding scale insulin with coverage BMP, cbc in AM Plan of care discussed with family members at bedside . All questions and concerns were addressed GI Prophylaxis: Proton Pump Inhibitor VTE Prophylaxis: SCDs Resuscitation Status: CPR: Attempt Resuscitation (discussed and verified with patient) Time spent 35 minutes Walt Mcmillan MD Dec 04, 2016 09:17
--- NOTE | 2016-12-04 10:02 | PCM.PNMED ---
Subjective Date of Service Dec 04, 2016 Subjective Patient was feels hungry any once daily. He is off pressors. He has no abdominal pain. No bowel movement. Exam Vital Signs Vital Sign - Last Date Time Temp Pulse Resp B/P Pulse Ox O2 Delivery O2 Flow Rate FiO2 12/04/16 04:33 36.6 59 14 131/85 100 Room Air 12/04/16 00:00 2.00 Intake and Output 12/03/16 12/03/16 12/04/16 Cumulative From/Thru 15:00 23:00 07:00 11/28/16 14:13 - 12/04/16 06:20 Intake Total 605 ml 1059 ml 12723 ml Output Total 550 ml 450 ml 4850 ml Balance 55 ml 609 ml 08562 ml Intake Oral 236 ml 0 ml 3411 ml IV Total 369 ml 1059 ml 36725 ml Output Urine Total 550 ml 450 ml 4450 ml Stool Total 400 ml # Voids 2 # Bowel Movements 1 0 12 Exam Patient is alert and appropriate and comfortable. Head and neck no icterus Lungs bronchial breath sounds anteriorly Cardiovascular regular rhythm normal S1-S2 Abdomen soft nontender mild distended normoactive bowel sounds Skin difficult to tell whether he is jaundiced due to skin pigmentation. Lab and Diagnostics Result Diagram: 12/04/16 0440 12/04/16 0440 X-Rays, CTs and MRIs Date of Service: 11/28/16 1409 PROCEDURE: X-RAY CHEST ONE VIEW, PORTABLE ([id number]) IMPRESSION: Shallow inspiration causes bibasliar atelectasis left greater than right. Infection is much less likely. Otherwise negative chest. Dictated by: Levi Malone M.D. on 11/28/2016 at 14:33 Approved by: Levi Malone M.D. on 11/28/2016 at 14:35 12-lead ECG NSR at about 70bpm. there is minimall ST elevation in the lateral leads but unchanged compared to the EKG from 11/20/16 Assessment & Plan This is a gentleman who had persistent diarrhea who came in with acute chronic renal insufficiency with multiple diarrhea. Clinically, I was concerned about dumping syndrome however gastric emptying study and small bowel follow-through does not support this. Currently he wants to eat. Apparently he failed a swallow study yesterday and is doing a barium video swallow. This is pending. I would encourage aggressive nutritional supplements. His albumin is slowly decreasing. Pt has barium in the intestine. Since she had no bowel movement today, please consider enemas and stool softners to prevent barium causing constipation. His hemoglobin is stable 8.8-8.7 today. White count has normalized to 6.2. Minimal evidence of bleeding. Anemia still noted but hemoglobin stable. Will need further workup. This can be done as an outpatient when he follows up with in the GI clinic. If there is evidence of decreasing hemoglobin , please order a red tag scan For now we will hold off on the flex sigmoidoscope. As soon as he can eat, start rifaximin 550 twice a day. If he starts having recurrent diarrhea, then we could proceed with another endoscopy. Based on the data with gastroparesis and slow transit time from small bowel follow-through, we have to potentially think about overflow diarrhea. If she does eventually get a tapwater enema for the endoscopy and we have solid stool coming out from the tap water enema, then I think overflow diarrhea is more likely. But we will see how he does. GI Prophylaxis: Proton Pump Inhibitor VTE Prophylaxis: SCDs Resuscitation Status: CPR: Attempt Resuscitation (discussed and verified with patient) Arvin Parikh MD Dec 04, 2016 10:02
--- NOTE | 2016-12-04 11:23 | NUR ---
NUTRITION ASSESSMENT: ASSESS: Pt is a 71 YO male admitted with hypoglycemia, persistent diarrhea and MURPHY. Pt was transferred to CCU due to hypotension and AMS. Pt has been experiencing persistent diarrhea over the last several years. GI is following and was initially concerned about dumping syndrome; however the gastric emptying study and small bowel follow-through results do not support this. Based on the data with gastroparesis and slow transit time from small bowel follow-through, the etiology could be overflow diarrhea. If he does eventually get a tap water enema for the endoscopy and the output is solid stool, then GI believes overflow diarrhea is more likely. Currently he wants to eat. Pt. has been NPO since 12/02. Diet advanced today by Speech Therapy to soft, thin liquids. GI recommending aggressive nutritional supplementation. PMHX: Peripheral neuropathy, DM, HTN, Anemia, Legally blind, Recent GI bleed, chronic intermittent diarrhea for past 2 years. LABS: Reviewed. Chloride 112, BUN 33, Cr 1.85, Glu 121, A1c 9.6, Ca 7.7, Alb 2.5. MEDS:Reviewed. Insulin, rifaximine. GI: BM x 1 yesterday. SKIN: No pressure injuries, per Ball Fringe Machine Operator. WTS: 76.2kg, BMI 23.4kg/m2, admit wt 76.9kg DIET: HH/CC, PO 100% EST. NEEDS: Kcals: 1920-2310kcal/day (25-30kcal/kg) Pro: 75-95g/day (1.0-1.2g/kg) NUTRITION DIAGNOSIS: 1) Altered GI function related to unknown etiology as evidence by persistent diarrhea NUTRITION INTERVENTION: 1) Received consult for diet education for dumping-syndrome, however it has not been determined if pt truly is experiencing dumping syndrome. Will continue to monitor for results of small-bowel follow through to see if education on this diet is appropriate. MONITOR / EVAL: GI, labs, wt, PO, POC, nutrition status. Will continue to monitor per moderate nutrition risk guidelines. Addendum: 12/04/16 at [address] Unintentionally saved incomplete follow-up: Wt: 86.7 kg, BMI 26.0 kg/m2. Admit weight 76.9 kg. Diet: Soft low sodium consistent carb. PO intake not recorded. However, previous intake prior to NPO status was excellent. NUTRITION DIAGNOSIS: Altered GI function related to unknown etiology, as evidenced by persistent diarrhea - PERSISTS. NUTRITION INTERVENTION: 1) Consult for diet education related to dumping syndrome on hold, pending determination of etiology of persistent diarrhea. 2) Inpatient diabetes education on hold, pending resolution of patient's altered mental status. 3) Per GI request, will supplement each meal with consistent carbohydrate nutritional supplements.
--- NOTE | 2016-12-04 11:45 | NUR ---
Social Work: Continued Discharge Planning D: Pt remains in CCU and is on day 6 of stay for MURPHY and hypoglycemia. Pt is not medically stable for discharge at this time. Pt has been working with physical therapy. At this time the recommendation is for skilled rehab however patient's family states that they will not consent to the patient going to rehab and intend to take them home with [facility]. At this time, no orders have been placed for social work to coordinate discharge planning. A: Pt who lives at home with family who provides 24/7 care. P: FINISHER MACHINE will continue to follow pt's clinical course and assist with safe discharge planning. Anticipate pt will likely discharge home with [facility] as this is family's request. YAYA Irizarry
--- NOTE | 2016-12-04 13:03 | PCM.PNNEPH ---
Subjective Date of Service Dec 04, 2016 Subjective Appetite has come back, pending MBS. Stable BP, off pressors, Cr trended. Exam Vital Signs Vital Sign - Last Date Time Temp Pulse Resp B/P Pulse Ox O2 Delivery O2 Flow Rate FiO2 12/04/16 08:30 36.5 59 14 163/84 100 Nasal Cannula 2.00 Intake and Output 12/03/16 12/03/16 12/04/16 Cumulative From/Thru 15:00 23:00 07:00 11/28/16 14:13 - 12/04/16 06:20 Intake Total 605 ml 1059 ml 44908 ml Output Total 550 ml 450 ml 4850 ml Balance 55 ml 609 ml 12272 ml Intake Oral 236 ml 0 ml 3411 ml IV Total 369 ml 1059 ml 54841 ml Output Urine Total 550 ml 450 ml 4450 ml Stool Total 400 ml # Voids 2 # Bowel Movements 1 0 12 Exam Gen: Lying comfortably, AAO3x, NAD. HEENT: PERRLA, Anicteric sclerae, Neck: supple, no JVD, Cardio: Regular rate and rhythm with no murmurs, rubs, or gallops appreciated Pulm: b/l air sound, no crackles, wheezes, or rhonchi. Normal respiratory effort with no use of accessory muscles. Abd: positive bowel tone. Soft, nontender, nondistended. Extremities: No clubbing, cyanosis, edema, or lymphadenopathy appreciated. : nichole cath in place with yellowish urine. Lab and Diagnostics Result Diagram: 12/04/16 0440 12/04/16 0440 X-Rays, CTs and MRIs Date of Service: 11/28/16 1409 PROCEDURE: X-RAY CHEST ONE VIEW, PORTABLE ([id number]) IMPRESSION: Shallow inspiration causes bibasliar atelectasis left greater than right. Infection is much less likely. Otherwise negative chest. Dictated by: Levi Malone M.D. on 11/28/2016 at 14:33 Approved by: Levi Malone M.D. on 11/28/2016 at 14:35 12-lead ECG NSR at about 70bpm. there is minimall ST elevation in the lateral leads but unchanged compared to the EKG from 11/20/16 Plan Impression 1. 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 pyuria, ? UTI s/p IV abx. 2. Diabetic nephropathy with subnephrotic range proteinuria. 3. Persistent diarrhea. 4. Gastroparesis. 5. Hypotension, resolved dehydration vs autonomic dysfunction. 6. Hypertensive with hypertensive nephrosclerosis. 7. Diastolic 8. ELIJAH likely due to GI blood loss. 9. HFpEF Plan: keep I&O balanced. avoid nephrotoxins. start bladder training. repeat BMP in am. if hypertensive, may start coreg 6.25 mg BID. Chanell Dutton MD Dec 04, 2016 13:03
--- NOTE | 2016-12-04 17:55 | NUR ---
Diet/Cardiac/ Pt on soft diet, thin liquids; tolerating well. No BM today. HR SB 58 to SR-60s with 1st deg AVB. Pt hypertensive to 188/83, Dr. Mcmillan notified, stated would order home dose of coreg. D5NS discontinued as pt able to take PO, BG at 1700 was 201; insulin administered as prescribed. Per Nephrology, pt started on bladder retraining. Song to be clamped x4h then drained, reclamped; Song to be d/c'd after 24 hours. Initiated clamping of Song at 1145 drained at 1600. Most recently, pt requested to have unclamped at 1700, at the same time he attempted a BM, reclamped at 1730, no BM. Next due to unclamp Song at 2130. Denies pain/discomfort. Q2H turns, when pt allows; intermittently declines turning despite education.
[2016-12-04] MEDS ORDERED: Nitroglycerin 2% 1 Gm Ointment TOPICAL ONE (20:15)
[2016-12-04] MEDS: Insulin GLARgine 100 Unit/mL Syringe SUBQ SCH (21:37)
[2016-12-04] MEDS: 0.9% Sodium Chloride 250 ML IV SCH (23:25)
[2016-12-05] VITALS (11 sets, daily range): BP systolic 136–203; BP diastolic 72–98; PULSE 60–81; RESP 13–22; O2SAT 98–100
[2016-12-05] MEDS: Heparin 5,000 Unit/mL Inj SUBQ SCH ×3 (01:30→16:50)
[2016-12-05 04:16] LABS: BASOPHILS % (AUTO) 0.2 % (0-3); EOSINOPHILS % (AUTO) 1.8 % (0-5); MONOCYTES % (AUTO) 7.4 % (4-12); Mean Corpuscular Hemoglobin 23.8 pg (27.0-35.0); Mean Corpuscular Volume 74.2 fL (81-100); Platelet Count 189 bil/L (150-400)
[2016-12-05] MEDS ORDERED: hydrALAZINE 20 mg/mL Inj IV ONE (04:50)
--- NOTE | 2016-12-05 06:47 | NUR ---
Hypertension P: Initial Sbp > 200's mmhg, HR 70's NSR with 1st avb. I: given nitropaste 1 inch TD E: BP improved to 170's mmhg for a couple hours, SBP trending back up in the 180's mmhg. I: given carvedilol 12 mg p0. E: SBP remain in the 180's mmhg, HR 60. I: updated Dr. Saucedo of BP trends, given hydralazine 10mg IV. E: SBP improved in the 140's mmhg.
--- NOTE | 2016-12-05 08:22 | PCM.PNMED ---
Subjective Date of Service Dec 05, 2016 Subjective Follow up for hypotension, diarrhea, dehydration, renal failure, dysphagia, aspiration pneumonia Patient is doing better today. He is somewhat confused but this seems to be his baseline. He is tolerating PO intake and has had one BM overnight . No fever, no chills, no cp, no SOB Exam Vital Signs Vital Sign - Last Date Time Temp Pulse Resp B/P Pulse Ox O2 Delivery O2 Flow Rate FiO2 12/05/16 04:26 36.4 60 13 184/98 100 Nasal Cannula 1.00 Intake and Output 12/04/16 12/04/16 12/05/16 Cumulative From/Thru 15:00 23:00 07:00 11/28/16 14:13 - 12/05/16 06:36 Intake Total 1338 ml 138 ml 03563 ml Output Total 550 ml 650 ml 6050 ml Balance 788 ml -512 ml 36852 ml Intake Oral 353 ml 3764 ml IV Total 985 ml 138 ml 09115 ml Output Urine Total 550 ml 650 ml 5650 ml Stool Total 400 ml # Voids 2 # Bowel Movements 0 12 Exam Gen : Chronically ill appearing,. Somewhat confused HEENT : PERRL, sclerae anicteric. Neck: Supple, trachea midline, no JVD, no cervical lymphadenopathy Chest: Normal respiratory effort. No chest wall deformity Lung: Clear bilaterally, no wheezing, no crackles Heart S1-S2 regular rate and rhythm no murmur no gallop Abdomen: Benign Extremities: No edema, no calf tenderness, no cyanosis Skin: No rash, no ulcers. Neuro : AA , non focal, confused IVs and Medications Medications Reviewed: Medications were reviewed in detail Lab and Diagnostics Result Diagram: 12/05/16 0400 12/05/16 0400 X-Rays, CTs and MRIs Date of Service: 11/28/16 1409 PROCEDURE: X-RAY CHEST ONE VIEW, PORTABLE ([id number]) IMPRESSION: Shallow inspiration causes bibasliar atelectasis left greater than right. Infection is much less likely. Otherwise negative chest. Dictated by: Levi Malone M.D. on 11/28/2016 at 14:33 Approved by: Levi Malone M.D. on 11/28/2016 at 14:35 12-lead ECG NSR at about 70bpm. there is minimall ST elevation in the lateral leads but unchanged compared to the EKG from 11/20/16 Assessment & Plan 1. Acute UTI. Present on admission. - On empiric IV Ceftriaxone (day 3). Ceftriaxone to be discontinued today -Urine culture grow mixte cheryl . Blood culture negative 2.Acute on cheronic kidney injury, present on admission. Discontinue IVF. PO intake resumed and is adequate - renal U/S is unremarkable -Monitor renal function and electrolytes . Nephrology fallowing. 3. Acute on chronic diarrhea, present on admission.t - Stool PCR negative - Bowel emptying report noted and shows severe gastroparesis . -Discussed with GI: Possible sigmoidoscopy and biopsy in the table. - PO intake resumed and so far patient seem to be tolerating 4. Acute hypoglycemia with history of diabetes mellitus, present prior to admission. - Episode of hypoglycemia has been going on for a while and likely related to gastroparesis . I think long acting insulin should be avoided in this gentleman and a trial of pre-meal insulin is probably the best way to go - On sliding scale insulin for now 5. Acute hypothermia and hypovolemic shock : Resolved Patient is now hypertensive . Antihypertensive medications are being resumed cautiously. Will increase Carvedilol to home dose of 25 mg PO BID 6. Encephalopathy : Acute . 1. Acute UTI. Present on admission. - On empiric IV Ceftriaxone (day 3): Completed -Urine culture grow mixte cheryl . Blood culture negative 7. Mildly elevated Troponin. - Possible demand ischemia and amplified by underlying Lisa - Check Echo shows normal EF 8. Chronic anemia with recent history of GI bleed. - H/H is stable 9. Dysphagia > Seen by speech and swallow . MBS pending for Tuesday. Patient on modified diet ant tolerating so far 10. Aspiration Pneumonia : On zosyn Patient is clinically and hemodynamicaly improved. His blood pressure now in the high side with systolic around 180 to 190. Antihypertensive medications are being resumed cautiously PO intake resumed and patient seem to be tolerating well. No diarrhea so far . IVF discontinued. Continue to monitor renal function and electrolytes. Nephrology following Trial Xifaxan for diarrhea per GI recommendation MBS for moday May be downgraded from PCU . PT evaluation. Discharge planning and anticipated within 2-3 days GI Prophylaxis: Proton Pump Inhibitor VTE Prophylaxis: SCDs Resuscitation Status: CPR: Attempt Resuscitation (discussed and verified with patient) Time spent 35 minutes Walt Mcmillan MD Dec 05, 2016 08:22
[2016-12-05] MEDS: Insulin Human REGular 300 Unit/3 mL Inj SUBQ SCH ×4 (08:43→21:50)
[2016-12-05] MEDS: Piperacillin-Tazo 3.375 Gm Inj 3.375 GM in Dextrose 5% Minibag Plus 50 ML IV SCH ×2 (08:44→21:33)
[2016-12-05] MEDS: 0.9% Sodium Chloride 250 ML IV SCH (08:53)
--- NOTE | 2016-12-05 09:19 | NUR ---
AZAEL Explained Medicare Rights explained to pt's family via telephone call.
--- NOTE | 2016-12-05 12:19 | PCM.PNMED ---
Subjective Date of Service Dec 05, 2016 Subjective Diarrhea today. However that the table, he was drinking a smoothie. Exam Vital Signs Vital Sign - Last Date Time Temp Pulse Resp B/P Pulse Ox O2 Delivery O2 Flow Rate FiO2 12/05/16 12:10 36.5 79 18 171/90 100 Room Air 12/05/16 08:22 1.00 Intake and Output 12/04/16 12/04/16 12/05/16 Cumulative From/Thru 15:00 23:00 07:00 11/28/16 14:13 - 12/05/16 06:36 Intake Total 1338 ml 138 ml 12452 ml Output Total 550 ml 650 ml 6050 ml Balance 788 ml -512 ml 68665 ml Intake Oral 353 ml 3764 ml IV Total 985 ml 138 ml 61744 ml Output Urine Total 550 ml 650 ml 5650 ml Stool Total 400 ml # Voids 2 # Bowel Movements 0 12 Exam Patient is alert and oriented comfortable Head and neck no icterus Lungs decreased breath sounds and bronchial breath sounds Cardiovascular regular rate and rhythm with normal S1-S2 Abdomen soft nontender nondistended with normoactive bowel sounds Extremities no pedal edema. Ankles Lab and Diagnostics Result Diagram: 12/05/16 0400 12/05/16 0945 X-Rays, CTs and MRIs Date of Service: 11/28/16 1409 PROCEDURE: X-RAY CHEST ONE VIEW, PORTABLE ([id number]) IMPRESSION: Shallow inspiration causes bibasliar atelectasis left greater than right. Infection is much less likely. Otherwise negative chest. Dictated by: Levi Malone M.D. on 11/28/2016 at 14:33 Approved by: Levi Malone M.D. on 11/28/2016 at 14:35 12-lead ECG NSR at about 70bpm. there is minimall ST elevation in the lateral leads but unchanged compared to the EKG from 11/20/16 Assessment & Plan This is a gentleman who had persistent diarrhea who came in with acute chronic renal insufficiency with multiple diarrhea. Clinically, I was concerned about dumping syndrome however gastric emptying study and small bowel follow-through does not support this. Currently he wants to eat. Apparently he failed a swallow study yesterday and is doing a barium video swallow. This is pending. I would encourage aggressive nutritional supplements. His albumin is slowly decreasing. Today he was given food and he tolerated his meal very well. I saw on the table that he was drinking smoothies. And I also did a rectal examination. The rectum was empty except when I saw the glove, yellowish liquid material noted. It almost looked like the same color as a smoothly. But again very writing to same situation that x-ray tasted telling us that things are moving slowly but patient having immediate postprandial diarrhea. I ordered a KUB to see if there is barium. Patient still has the barium in the colon, I think this is a definitive finding that intestines are moving very slowly. For now, but asked him to only give him water for liquids. Water should are not be given excessively but only when he needs it. In the meantime he should eat regular food. He did not have this reaction when he had an egg sandwich when he had the gastric emptying test. His hemoglobin is stable 8.7-8.7 today. Minimal evidence of bleeding. Anemia still noted but hemoglobin stable. Will need further workup. This can be done as an outpatient when he follows up with in the GI clinic. If there is evidence of decreasing hemoglobin, please order a red tag scan For now we will hold off on the flex sigmoidoscope. rifaximin 550 twice a day. If he starts having recurrent diarrhea with the above changes in the diet, then we could proceed with another endoscopy. GI Prophylaxis: Proton Pump Inhibitor VTE Prophylaxis: SCDs VTE Mechanical Devices: Intermittant Pneumatic CD Resuscitation Status: CPR: Attempt Resuscitation (discussed and verified with patient) Arvin Parikh MD Dec 05, 2016 12:19
--- NOTE | 2016-12-05 13:03 | DRSVH ---
PROCEDURE: X-RAY KUB ([id number]) INDICATIONS: ABD PAIN TECHNIQUE: One view of the abdomen acquired. COMPARISON: [facility], CR, XR CHEST 1VW (PORTABLE), 12/03/2016, 18:38. FINDINGS: Surgical changes and devices: None within the abdomen or pelvis, surgical screws are noted at the [facility] hip suggestive of prior axial pinning partially visualized. Bowel: Bowel gas pattern is normal. Oral contrast is present within the colon which is not distended . Soft tissues: No suspicious abdominal calcifications. Visualized solid organ contours appear normal in size. Retrocardiac left lower lobe opacification Bones: No suspicious bony lesions. IMPRESSION: No sign of intestinal obstruction or perforation. Oral contrast from prior small bowel study is present within the colon. The colon is not distended. No free air suspected. Retrocardiac left lower lobe alveolar opacification. This was previously present on chest plain film 12/03/16. Dictated by: Lopez Wetzel M.D. on 12/05/2016 at 12:59 Approved by: Lopez Wetzel M.D. on 12/05/2016 at 13:01
--- NOTE | 2016-12-05 15:12 | PCM.PNNEPH ---
Subjective Date of Service Dec 05, 2016 Subjective loose BM x2 since this morning. BP now on the high side, received IV hydralazine and PO coreg. Cr trended 1.76. No F/C/N/V/CP/SOB. Exam Vital Signs Vital Sign - Last Date Time Temp Pulse Resp B/P Pulse Ox O2 Delivery O2 Flow Rate FiO2 12/05/16 12:10 36.5 79 18 171/90 100 Room Air 12/05/16 08:22 1.00 Intake and Output 12/04/16 12/04/16 12/05/16 Cumulative From/Thru 15:00 23:00 07:00 11/28/16 14:13 - 12/05/16 06:36 Intake Total 1338 ml 138 ml 75887 ml Output Total 550 ml 650 ml 6050 ml Balance 788 ml -512 ml 34535 ml Intake Oral 353 ml 3764 ml IV Total 985 ml 138 ml 35202 ml Output Urine Total 550 ml 650 ml 5650 ml Stool Total 400 ml # Voids 2 # Bowel Movements 0 12 Exam Gen: Lying comfortably, AAO3x, NAD. HEENT: PERRLA, Anicteric sclerae, Neck: supple, no JVD, Cardio: Regular rate and rhythm with no murmurs, rubs, or gallops appreciated Pulm: b/l air sound, no crackles, wheezes, or rhonchi. Normal respiratory effort with no use of accessory muscles. Abd: positive bowel tone. Soft, nontender, nondistended. Extremities: No clubbing, cyanosis, edema, or lymphadenopathy appreciated. : nichole cath in place with yellowish urine. Lab and Diagnostics Result Diagram: 12/05/16 0400 12/05/16 0945 X-Rays, CTs and MRIs Date of Service: 11/28/16 1409 PROCEDURE: X-RAY CHEST ONE VIEW, PORTABLE ([id number]) IMPRESSION: Shallow inspiration causes bibasliar atelectasis left greater than right. Infection is much less likely. Otherwise negative chest. Dictated by: Levi Malone M.D. on 11/28/2016 at 14:33 Approved by: Levi Malone M.D. on 11/28/2016 at 14:35 12-lead ECG NSR at about 70bpm. there is minimall ST elevation in the lateral leads but unchanged compared to the EKG from 11/20/16 Plan Impression 1. 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 pyuria, ? UTI s/p IV abx. 2. Diabetic nephropathy with subnephrotic range proteinuria. 3. Suspected neurogenic bladder ,PVR > 999 ml bedside. 4. Persistent diarrhea, GI on board. ? overflow diarrhea. 5. Gastroparesis. 6. Hypotension, resolved dehydration vs autonomic dysfunction. 7. Hypertensive with hypertensive nephrosclerosis. 8. ELIJAH likely due to GI blood loss 9. HFpEF 10. Suspected aspiration PNA. Plan: keep I&O balanced. avoid nephrotoxins. continue bladder training. repeat BMP in am. Check orthostatic v/s. May resume coreg and lisinopril if negative orthostatics. Chanell Dutton MD Dec 05, 2016 15:12
--- NOTE | 2016-12-05 17:30 | NUR ---
Hypertension: P: BP = 203/95 I: Patient asymptomatic. MD notified. Ordered Carvedilol 25mg PO and Amlodapine 2.5mg PO. Medications administered. E: Report given to Lorna Aguilar RN.
[2016-12-05] MEDS: Insulin GLARgine 100 Unit/mL Syringe SUBQ SCH (21:46)
[2016-12-06] VITALS (9 sets, daily range): BP systolic 167–197; BP diastolic 73–103; PULSE 53–64; RESP 16–20; O2SAT 98–100
[2016-12-06] MEDS: Heparin 5,000 Unit/mL Inj SUBQ SCH ×3 (00:39→16:52)
--- NOTE | 2016-12-06 07:21 | NUR ---
HTN/Bladder Scan/Diarrhea Pt continues w/ high BPs, early in shift BPs 180s-190s/90s w/ no HS BP meds, notified, no new orders given. Early this morning SBP high 190s, notified once more, no new orders given. Pt able to void 100cc after nichole removal but was not able to do much more after that. PVR showed 560-630cc, MD notified and ordered straight cath. Pt tried for some time to void again before cath inserted and voided about 100, 500cc output from straight cath after that. Pt had diarrhea x1 this shift, stool sample sent, stool was liquid this morning, yellowish in color.
[2016-12-06] MEDS: Insulin Human REGular 300 Unit/3 mL Inj SUBQ SCH ×4 (07:30→22:36)
--- NOTE | 2016-12-06 09:19 | NUR ---
Orthostatic BP note lyin/83 Sittin/72 Standin/72
[2016-12-06] MEDS: Piperacillin-Tazo 3.375 Gm Inj 3.375 GM in Dextrose 5% Minibag Plus 50 ML IV SCH ×2 (09:26→22:19)
[2016-12-06] MEDS: Lisinopril 40 Tablet PO SCH (10:48)
--- NOTE | 2016-12-06 12:15 | NUR ---
Transferred to [facility] Patient transferred to [facility], room 1019 in a stable condition. All personal belongings with patient, report given to EMMANUEL Collier.
[2016-12-06 12:24] LABS: BASOPHILS % (AUTO) 0.3 % (0-3); EOSINOPHILS % (AUTO) 1.7 % (0-5); MONOCYTES % (AUTO) 6.8 % (4-12); Mean Corpuscular Hemoglobin 23.1 pg (27.0-35.0); Mean Corpuscular Volume 76.6 fL (81-100); NEUTROPHILS % (AUTO) 78.1 % (40-74); Platelet Count 153 bil/L (150-400)
[2016-12-06 12:44] LABS: Unsaturated Iron Binding 216.1 ug/dL
--- NOTE | 2016-12-06 12:50 | DRSVH ---
PROCEDURE: X-RAY BARIUM STUDY OF ESOPHAGUS/PHARYNX ([id number]) INDICATIONS: Dysphagia COMPARISON: None. FINDINGS: Examination is limited by patient immobility. Within these limits, no laryngeal penetration or trach eobronchial aspiration. There is severe esophageal dysmotility with tortuous and patulous appearance of the esophagus. No definite stricture, ulcer, mass or diverticulum is present. There is debris w ithin the esophagus likely related to ingested material. Reflux nor hiatal hernia can be assessed. T he attending physician was personally present in the room during the examination. IMPRESSION: Severe esophageal dysmotility with patulous and tortuous appearance of the esophagus and no definite stricture seen. Dictated by: Fernando CA Interpreted: Ramana Brannon MD on 12/06/2016 at 12:48 Transcribed by: JONATHAN on 12/06/2016 at 12:50 Approved by: Dionicio Brannon M.D. on 12/06/2016 at 16:32
--- NOTE | 2016-12-06 13:52 | PCM.PNNEPH ---
Subjective Date of Service Dec 06, 2016 Subjective The patient has a very complicated course of his poorly controlled diabetes. This is manifested as severe retinopathy, peripheral neuropathy, diabetic renal disease, and severe autonomic peripheral neuropathy along with peripheral vascular disease. He was admitted for what appeared to be in acute on chronic kidney injury secondary to severe diarrhea from C. difficile. His blood pressure has been also quite labile in part due to volume depletion but also in part due to his autonomic neuropathy. Today his systolic blood pressures have been elevated in the 150-180 range however he is remaining supine. He has had a slight increase in his creatinine to a level of 1.93 today. In the last 24 hours he has had 1198 in and 1650 out with 1275 out already this morning. Exam Vital Signs Vital Sign - Last Date Time Temp Pulse Resp B/P Pulse Ox O2 Delivery O2 Flow Rate FiO2 12/06/16 13:08 Supplement Oxygen 12/06/16 10:00 62 16 99 2.00 12/06/16 09:00 36.8 167/87 Intake and Output 12/05/16 12/05/16 12/06/16 Cumulative From/Thru 15:00 23:00 07:00 11/28/16 14:13 - 12/06/16 06:43 Intake Total 360 ml 700 ml 300 ml 38489 ml Output Total 1000 ml 1275 ml 8325 ml Balance 360 ml -300 ml -975 ml 82294 ml Intake Oral 360 ml 630 ml 300 ml 5054 ml IV Total 70 ml 63442 ml Output Urine Total 1000 ml 775 ml 7425 ml Stool Total 500 ml 900 ml # Voids 3 5 # Bowel Movements 2 2 16 Exam HEENT examination is remarkable for pale sclera and some dry mucous membranes. Neck is supple without adenopathy thyromegaly or jugular venous distention. Lungs were clear to auscultation with somewhat diminished. Heart is regular with a soft systolic murmur. Abdomen is soft with diminished bowel sounds. There is no tenderness rebound or organomegaly masses or hepatosplenomegaly. Extremities did not show any evidence of any clubbing cyanosis or edema. Skin turgor is slightly diminished and there is no evidence of any rashes. Lab and Diagnostics Result Diagram: 12/06/16 1205 12/06/16 1205 X-Rays, CTs and MRIs Date of Service: 11/28/16 1409 PROCEDURE: X-RAY CHEST ONE VIEW, PORTABLE ([id number]) IMPRESSION: Shallow inspiration causes bibasliar atelectasis left greater than right. Infection is much less likely. Otherwise negative chest. Dictated by: Levi Malone M.D. on 11/28/2016 at 14:33 Approved by: Levi Malone M.D. on 11/28/2016 at 14:35 12-lead ECG NSR at about 70bpm. there is minimall ST elevation in the lateral leads but unchanged compared to the EKG from 11/20/16 Plan Impression Impression #1 acute on chronic kidney injury secondary to dehydration from diarrhea number to diabetic nephropathy #3 hypertension with hypertensive heart disease and hypertensive nephrosclerosis #4 anemia secondary to chronic kidney disease #5 severe peripheral autonomic neuropathy. Medications #1 once we get his diarrhea under control we can hopefully get him euvolemic that point we can gently address his blood pressure issues. Because of persistent bradycardia in the 50s I do not feel O 12. Motrin blockade would be of any benefit and considerable risk. Kiet Obrien DO Dec 06, 2016 13:52
--- NOTE | 2016-12-06 14:00 | NUR ---
RECEIVED FROM [facility] Patient received from [facility] after his Barium swallow. Transferred with assist to the bed. On O2 at 1 LPM via NC. IVF ongoing. 3 lumen PICC line draws blood and flushed witout any difficulty. Patient denies pain, nausea/SOB. Per report patient gets up with 2 max assist. Daughter is at the bedside. Oriented to room and call light. Dr. Mcmillan paged RE: + Cdiff result in his stool. No call back at this time.
[2016-12-06] MEDS ORDERED: Furosemide 10 mg/mL 4 mL Inj IVPUSH ONE (14:20)
--- NOTE | 2016-12-06 14:38 | PCM.PNMED ---
Subjective Date of Service Dec 06, 2016 Subjective Patient seen and examined at bedside . He is somewhat SOB today he said. No chest pain. he had 2 watery bowel movement overnight. No nausea, no vomiting . , Stool reported to be positive for C-diff Exam Vital Signs Vital Sign - Last Date Time Temp Pulse Resp B/P Pulse Ox O2 Delivery O2 Flow Rate FiO2 12/06/16 13:08 Supplement Oxygen 12/06/16 10:00 62 16 99 2.00 12/06/16 09:00 36.8 167/87 Intake and Output 12/05/16 12/05/16 12/06/16 Cumulative From/Thru 15:00 23:00 07:00 11/28/16 14:13 - 12/06/16 06:43 Intake Total 360 ml 700 ml 300 ml 68517 ml Output Total 1000 ml 1275 ml 8325 ml Balance 360 ml -300 ml -975 ml 65125 ml Intake Oral 360 ml 630 ml 300 ml 5054 ml IV Total 70 ml 87285 ml Output Urine Total 1000 ml 775 ml 7425 ml Stool Total 500 ml 900 ml # Voids 3 5 # Bowel Movements 2 2 16 Exam Gen : Chronically ill appearing, in no acute distress HEENT : PERRL, sclerae anicteric. Neck: Supple, trachea midline, no JVD, no cervical lymphadenopathy Chest: Normal respiratory effort, no use alert is remorseful. Lung; No crackles , no wheezing Heart S1-S2 regular rate and rhythm no murmur no gallop Abdomen: Soft non tender, non distended, bowel sounds audible. Extremities: No edema, no calf tenderness, no cyanosis : Scrotal edema noted, no palp mass , no tenderness. Penis foreskin edematous. No rash, Skin: No rash, no ulcers. Neuro :AA. non focal IVs and Medications Medications Reviewed: Medications were reviewed in detail Lab and Diagnostics Result Diagram: 12/06/16 1205 12/06/16 1205 X-Rays, CTs and MRIs Date of Service: 11/28/16 1409 PROCEDURE: X-RAY CHEST ONE VIEW, PORTABLE ([id number]) IMPRESSION: Shallow inspiration causes bibasliar atelectasis left greater than right. Infection is much less likely. Otherwise negative chest. Dictated by: Levi Malone M.D. on 11/28/2016 at 14:33 Approved by: Levi Malone M.D. on 11/28/2016 at 14:35 12-lead ECG NSR at about 70bpm. there is minimall ST elevation in the lateral leads but unchanged compared to the EKG from 11/20/16 Assessment & Plan 1. C-diff Colitis : I am nut sure this is the cause of his 2 1/2 years of diarrhea as he has been tested negative for c-diff several time in that window of time . It may have contracted C-diff during this hospitalization or probably secondary to Zosyn In any case, I am starting him on Flagyl and monitor renal function and electrolyte closely . 2.Acute on cheronic kidney injury, present on admission. - renal U/S is unremarkable -Monitor renal function and electrolytes . Nephrology fallowing. 3. SOB : New . . He gained 16 lbs during the course of hospital stay . He may be fluid overload rather than dehydrated / Will obtain a chest x-ray and give one dose of Lasix . 4. Acute hypoglycemia with history of diabetes mellitus, present prior to admission. - Episode of hypoglycemia has been going on for a while and likely related to gastroparesis . I think long acting insulin should be avoided in this gentleman and a trial of pre-meal insulin is probably the best way to go - On sliding scale insulin for now 5. Hypertension : initially hypotensive on admission requiring pressor . BP in 190 systolic now. Titrate up antihypertensive medications for blood pressure control . Increase Amlodipine to 10 mg PO daily. Consider adding hydralazine. 6. Encephalopathy : Improved 1. Acute UTI. Present on admission. - On empiric IV Ceftriaxone (day 3): Completed -Urine culture grow mixte cheryl . Blood culture negative 7. Mildly elevated Troponin. - Possible demand ischemia and amplified by underlying Lisa - Check Echo shows normal EF 8. Chronic anemia with recent history of GI bleed. - H/H is stable 9. Dysphagia > Seen by speech and swallow . MBS report review: o laryngeal penetration or tracheobronchial aspiration. There is severe esophageal dysmotility with tortuous and patulous appearance of the esophagus. 10. Aspiration Pneumonia Continue zosyn for another and discontinued Repeat chest X-ray pending New development with C-diff diarrhea . Unsure this is the cause of his diarrhea for more than 1 year as he was tested negative for c-diff in the pass/. Flagyl initated and patient put on contact precaution . 16 lbs weight loss noted since admission . Patient likely fluid overlaod. Scrotal edema noted on PE . He is SOB today . Chest X-ray ordered and one time dose of Lasix. I will leave any further diuretic at discretion of nephrology. Patient still on acute renal failure/ . Creat is 1.9 today form 2.2 on admission but normal one year ago. I will discontinue PPI. Recent study show association with acute renal failure Titrate BP medications for BP control . PT evaluation. BMP in am . GI Prophylaxis: Proton Pump Inhibitor VTE Prophylaxis: SCDs VTE Mechanical Devices: Intermittant Pneumatic CD Resuscitation Status: CPR: Attempt Resuscitation (discussed and verified with patient) Time spent 35 minutes Walt Mcmillan MD Dec 06, 2016 14:38
--- NOTE | 2016-12-06 14:39 | PCM.PNNEPH ---
Subjective Date of Service Dec 06, 2016 Subjective Patient is a 71yom with MHx significant for long-standing uncontrolled insulin- dependent diabetes type II, hypertension, and CKD who was recently diagnosed with MURPHY secondary to probably ischemia due to GI bleed associated with NSAID abuse, found unconsciousness due to hypoglycemia and admitted with for acute on chronic kidney injury. Overnight, BP continues to be labile. He was hypotensive, bradycardic 3 days ago , now hypertensive and still bradycardic. Patient denies any new complaints today. No lightheadedness, dizziness. Good appetite. Exam Vital Signs Vital Sign - Last Date Time Temp Pulse Resp B/P Pulse Ox O2 Delivery O2 Flow Rate FiO2 12/06/16 13:08 Supplement Oxygen 12/06/16 10:00 62 16 99 2.00 12/06/16 09:00 36.8 167/87 Intake and Output 12/05/16 12/05/16 12/06/16 Cumulative From/Thru 15:00 23:00 07:00 11/28/16 14:13 - 12/06/16 06:43 Intake Total 360 ml 700 ml 300 ml 84986 ml Output Total 1000 ml 1275 ml 8325 ml Balance 360 ml -300 ml -975 ml 49327 ml Intake Oral 360 ml 630 ml 300 ml 5054 ml IV Total 70 ml 24889 ml Output Urine Total 1000 ml 775 ml 7425 ml Stool Total 500 ml 900 ml # Voids 3 5 # Bowel Movements 2 2 16 Lab and Diagnostics Result Diagram: 12/06/16 1205 12/06/16 1205 X-Rays, CTs and MRIs Date of Service: 11/28/16 1409 PROCEDURE: X-RAY CHEST ONE VIEW, PORTABLE ([id number]) IMPRESSION: Shallow inspiration causes bibasliar atelectasis left greater than right. Infection is much less likely. Otherwise negative chest. Dictated by: Levi Malone M.D. on 11/28/2016 at 14:33 Approved by: Levi Malone M.D. on 11/28/2016 at 14:35 12-lead ECG NSR at about 70bpm. there is minimall ST elevation in the lateral leads but unchanged compared to the EKG from 11/20/16 Jared Goodrich DO Dec 06, 2016 14:39
--- NOTE | 2016-12-06 14:49 | DRSVH ---
PROCEDURE: X-RAY CHEST ONE VIEW, PORTABLE ([id number]) INDICATIONS: SHORTNESS OF BREATH TECHNIQUE: One view of the chest was acquired. COMPARISON: [facility], CR, XR CHEST 1VW (PORTABLE), 12/03/2016, 18:38. FINDINGS: Surgical changes and devices: Stable positioning of right IJ CVL Lungs and pleura: The small basilar pleural effusions and airspace opacities are present, left greate r than right. No pneumothorax. Mediastinum: Mediastinal contours appear normal. Heart size is normal. Bones and chest wall: No suspicious bony lesions. Overlying soft tissues appear unremarkable. Residual contrast media seen within the stomach. IMPRESSION: 1. Stable positioning of right IJ CVL. 2. Persistent small effusions and airspace opacities consistent compressive atelectasis versus aspira tion or pneumonia. Dictated by: Fernando CA Interpreted: Ramana Brannon MD on 12/06/2016 at 14:47 Transcribed by: JONATHAN on 12/06/2016 at 14:48 Approved by: Dionicio Brannon M.D. on 12/06/2016 at 16:33
[2016-12-06] MEDS ORDERED: Lidocaine 2% 6mL Topical Jelly TOPICAL PRN (15:00)
--- NOTE | 2016-12-06 15:00 | NUR ---
MD NOTIFICATION SBP-190's. HR-50-60's. Weight gain of 9-10 lbs. from admit. Patient is complaining of SOB. On O2 at 1-2 LPM. PO2-99 %. PVR-695. Unable to void. Scrotal area is swollen and red. + Cdiff. Dr. Mcmillan made aware. New orders for Norvasc, IV Lasix, IFC placement and CXR received.
--- NOTE | 2016-12-06 17:09 | PCM.PNMED ---
Subjective Date of Service Dec 06, 2016 Subjective Diarrhea improve Exam Vital Signs Vital Sign - Last Date Time Temp Pulse Resp B/P Pulse Ox O2 Delivery O2 Flow Rate FiO2 12/06/16 14:15 60 16 193/73 99 Nasal Cannula 2.00 12/06/16 09:00 36.8 Intake and Output 12/05/16 12/05/16 12/06/16 Cumulative From/Thru 15:00 23:00 07:00 11/28/16 14:13 - 12/06/16 06:43 Intake Total 360 ml 700 ml 300 ml 47257 ml Output Total 1000 ml 1275 ml 8325 ml Balance 360 ml -300 ml -975 ml 96444 ml Intake Oral 360 ml 630 ml 300 ml 5054 ml IV Total 70 ml 83292 ml Output Urine Total 1000 ml 775 ml 7425 ml Stool Total 500 ml 900 ml # Voids 3 5 # Bowel Movements 2 2 16 Exam Patient is alert and oriented and comfortable Head and neck no icterus Lungs decreased breath sound on the base with bronchial breath sounds Cardiovascular regular rate and rhythm normal S1 and S2 Abdomen soft mildly distended nontender and nondistended and normoactive bowel sounds Extremities no pitting edema of the ankles. Lab and Diagnostics Result Diagram: 12/06/16 1205 12/06/16 1205 X-Rays, CTs and MRIs Date of Service: 11/28/16 1409 PROCEDURE: X-RAY CHEST ONE VIEW, PORTABLE ([id number]) IMPRESSION: Shallow inspiration causes bibasliar atelectasis left greater than right. Infection is much less likely. Otherwise negative chest. Dictated by: Levi Malone M.D. on 11/28/2016 at 14:33 Approved by: Levi Malone M.D. on 11/28/2016 at 14:35 12-lead ECG NSR at about 70bpm. there is minimall ST elevation in the lateral leads but unchanged compared to the EKG from 11/20/16 Assessment & Plan This is a gentleman who had persistent diarrhea who came in with acute chronic renal insufficiency with multiple diarrhea. Clinically, I was concerned about dumping syndrome however gastric emptying study and small bowel follow-through does not support this. The abdominal x-ray. Days later showed barium. This also supports slow progression through the intestines. Yesterday he started having diarrhea. He had positive C. difficile. He is being treated. His diarrhea and he says his little better than yesterday. Currently he wants to eat. For diet instructions, please follow the speech pathology instructions. Hemoglobin 8.7-8.7. Expect diarrhea due to C. difficile. She slowly improved. After treatment of C. difficile and if the diarrhea worsens or persists, please reconsult. Minimal evidence of bleeding. Anemia still noted but hemoglobin stable. Will need further workup. This can be done as an outpatient when he follows up with in the GI clinic. If there is evidence of decreasing hemoglobin , please order a red tag scan For now we will hold off on the endoscopy. Please continue rifaximin 550 twice a day for 10 days. GI Prophylaxis: Proton Pump Inhibitor VTE Prophylaxis: SCDs VTE Mechanical Devices: Intermittant Pneumatic CD Resuscitation Status: CPR: Attempt Resuscitation (discussed and verified with patient) Arvin Parikh MD Dec 06, 2016 17:09 I think long acting insulin should be avoided in this gentleman and a trial of pre-meal insulin is probably the best way to go - On sliding scale insulin for now 5. Hypertension : initially hypotensive on admission requiring pressor . BP in 190 systolic now. Titrate up antihypertensive medications for blood pressure control . Increase Amlodipine to 10 mg PO daily. Consider adding hydralazine. 6. Encephalopathy : Improved 1. Acute UTI. Present on admission. - On empiric IV Ceftriaxone (day 3): Completed -Urine culture grow mixte cheryl . Blood culture negative 7. Mildly elevated Troponin. - Possible demand ischemia and amplified by underlying Lisa - Check Echo shows normal EF 8. Chronic anemia with recent history of GI bleed. - H/H is stable 9. Dysphagia > Seen by speech and swallow . MBS report review: o laryngeal penetration or tracheobronchial aspiration. There is severe esophageal dysmotility with tortuous and patulous appearance of the esophagus. 10. Aspiration Pneumonia Continue zosyn for another and discontinued Repeat chest X-ray pending New development with C-diff diarrhea . Unsure this is the cause of his diarrhea for more than 1 year as he was tested negative for c-diff in the pass/. Flagyl initated and patient put on contact precaution . 16 lbs weight loss noted since admission . Patient likely fluid overlaod. Scrotal edema noted on PE . He is SOB today . Chest X-ray ordered and one time dose of Lasix. I will leave any further diuretic at discretion of nephrology. Patient still on acute renal failure/ . Creat is 1.9 today form 2.2 on admission but normal one year ago. I will discontinue PPI. Recent study show association with acute renal failure Titrate BP medications for BP control . PT evaluation. BMP in am . GI Prophylaxis: Proton Pump Inhibitor VTE Prophylaxis: SCDs VTE Mechanical Devices: Intermittant Pneumatic CD Resuscitation Status: CPR: Attempt Resuscitation (discussed and verified with patient) Arvin Parikh MD Dec 06, 2016 17:09
[2016-12-06] MEDS ORDERED: hydrALAZINE 20 mg/mL Inj IV PRN (18:50)
--- NOTE | 2016-12-06 19:16 | NUR ---
MD NOTIFICATION SBP continues to be in the 180's. HR-50's. Patient stated that his pain is better at this time after the IV Morphine. Dr. Mcmillan made aware RE: High BP's. Per Dr. Mcmillan he will enter Hydralazine IV order for the patient. Care endorsed to Kayla Walker RN.
[2016-12-06] MEDS: Insulin GLARgine 100 Unit/mL Syringe SUBQ SCH (22:36)
[2016-12-07] VITALS (9 sets, daily range): BP systolic 121–177; BP diastolic 58–82; PULSE 52–67; RESP 14–19; O2SAT 92–99
[2016-12-07] MEDS: 0.9% Sodium Chloride 250 ML IV SCH (01:11)
[2016-12-07] MEDS: Heparin 5,000 Unit/mL Inj SUBQ SCH ×3 (01:11→17:07)
--- NOTE | 2016-12-07 06:10 | NUR ---
[place] Urine Blood tinged urine draining out of MD dionisio notified, no changes made at this time. SCD bilaterally. No SOB or chest pain. Morphine IV for pain 1x. Pt AOx3, Spanish second language but able to make all needs known. Isolation for CDIFF, no BM this shift. Daughter rooms in. Care continues
[2016-12-07] MEDS: Insulin Human REGular 300 Unit/3 mL Inj SUBQ SCH ×4 (07:51→22:00)
--- NOTE | 2016-12-07 08:47 | NUR ---
Holding off on OT at this time due to MAP of 113. Will try again. Per Hubbard, OTR/L
--- NOTE | 2016-12-07 09:21 | NUR ---
AZAEL: Asked NON LICENSED NUCLEAR PLANT OPERATOR to follow up with family/ NOK for AZAEL
[2016-12-07] MEDS ORDERED: Furosemide 10 mg/mL 4 mL Inj IVPUSH ONE (09:30)
[2016-12-07] MEDS: Lisinopril 40 Tablet PO SCH (09:46)
[2016-12-07] MEDS: Piperacillin-Tazo 3.375 Gm Inj 3.375 GM in Dextrose 5% Minibag Plus 50 ML IV SCH (09:49)
--- NOTE | 2016-12-07 13:11 | PCM.PNNEPH ---
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 His stay is further complicated by labile hypertension, pneumonia, and currently C.diff infection. No overnight event, patient moved to orthopedic/surgical care unit. He reports good appetites, however, nausea after breakfast today. Barium swallow study demonstrate severe esophageal dysmotility (12/06) No diarrhea, no abdominal pain. However, does report significant scrotal pain and increase leg swelling. BP stable 170's/80's. HR 60's. Patient takes amlodipine, Coreg, and lisinopril with prn hydralazine. I/O 1.4L/1.6L via Song catheter over 24hrs . Cr 2.08 stable today. This may represent new baseline. Exam Vital Signs Vital Sign - Last Date Time Temp Pulse Resp B/P Pulse Ox O2 Delivery O2 Flow Rate FiO2 12/07/16 10:31 36.4 64 19 169/82 99 Nasal Cannula 2.00 Intake and Output 12/06/16 12/06/16 12/07/16 Cumulative From/Thru 15:00 23:00 07:00 11/28/16 14:13 - 12/06/16 23:48 Intake Total 99 ml 506 ml 11574 ml Output Total 1300 ml 9625 ml Balance 99 ml -794 ml 01135 ml Intake Oral 200 ml 5254 ml IV Total 99 ml 306 ml 37769 ml Output Urine Total 1300 ml 8725 ml Stool Total 900 ml # Voids 5 # Bowel Movements 0 16 Exam Gen: Lying comfortably at 30degree head tilt HEENT: PERRLA, Anicteric sclerae, Neck: supple, no JVD, Cardio: Regular rate and rhythm with no murmurs, rubs, or gallops appreciated Pulm: b/l air sound, no crackles, wheezes, or rhonchi. Normal respiratory effort with no use of accessory muscles. Abd: positive bowel tone. Soft, nontender, nondistended. Extremities: No clubbing, cyanosis, or lymphadenopathy appreciated. moderate pitting edema to the thigh, scrotal swelling. +Song cath Skin: Normal temperature and texture; normal skin turgor, no rash, Neuro: moving equally on 4 limbs. Psyc: Normal mood and affect. AoX3 Lab and Diagnostics Result Diagram: 12/06/16 1205 12/07/16440 X-Rays, CTs and MRIs Date of Service: 11/28/16 1409 PROCEDURE: X-RAY CHEST ONE VIEW, PORTABLE ([id number]) IMPRESSION: Shallow inspiration causes bibasliar atelectasis left greater than right. Infection is much less likely. Otherwise negative chest. Dictated by: Levi Malone M.D. on 11/28/2016 at 14:33 Approved by: Levi Malone M.D. on 11/28/2016 at 14:35 12-lead ECG NSR at about 70bpm. there is minimall ST elevation in the lateral leads but unchanged compared to the EKG from 11/20/16 Plan Impression Problem List # Acute on chronic kidney injury 2nd obstructive uropathy, ATN, and NSAIDs- induced MURPHY. 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 Plan: # Cont antihypertensive regiment, cont amlodipine, PRN hydralazine. - Cont lisinopril 40mg daily, Cr stable over the past 9days. GFR 34, evidence risk<benefits of HAIM-i. - Cautious use of coreg given hx of low HR # Agrees with Lasix IV. Will evaluate respond, consider another dose in the AM # Consider ultrasound of scrotum to evaluate if pain worsen # Bladder training. Kiet Obrien DO 12/07/16 1445: Exam Lab and Diagnostics Result Diagram: 12/06/16 1205 12/07/16 0441 Plan Plan: Patient examined the patient along with Dr. Orlando family discussed the case and I have reviewed his note above. I agree with findings and plan. Jared Goodrich DO Dec 07, 2016 13:11 Kiet Obrien DO Dec 07, 2016 14:45
--- NOTE | 2016-12-07 13:54 | PCM.PNMED ---
Subjective Date of Service Dec 07, 2016 Subjective No data overnight. Afebrile. Continues to have significant scrotal swelling and had urinary retention which required Song insertion yesterday. Exam Vital Signs Vital Sign - Last Date Time Temp Pulse Resp B/P Pulse Ox O2 Delivery O2 Flow Rate FiO2 12/07/16 10:31 36.4 64 19 169/82 99 Nasal Cannula 2.00 Intake and Output 12/06/16 12/06/16 12/07/16 Cumulative From/Thru 15:00 23:00 07:00 11/28/16 14:13 - 12/06/16 23:48 Intake Total 99 ml 506 ml 18118 ml Output Total 1300 ml 9625 ml Balance 99 ml -794 ml 19376 ml Intake Oral 200 ml 5254 ml IV Total 99 ml 306 ml 42858 ml Output Urine Total 1300 ml 8725 ml Stool Total 900 ml # Voids 5 # Bowel Movements 0 16 Exam Gen : Chronically ill appearing, in no acute distress HEENT : PERRL, sclerae anicteric. Neck: Supple, trachea midline, no JVD, no cervical lymphadenopathy,RIJ TLC Chest: Normal respiratory effort, no use alert is remorseful. Lung; No crackles , no wheezing Heart S1-S2 regular rate and rhythm no murmur no gallop Abdomen: Soft non tender, non distended, bowel sounds audible. Extremities: No edema, no calf tenderness, no cyanosis : Scrotal edema noted, no palp mass , no tenderness. Penis foreskin edematous. No rash, Skin: No rash, no ulcers. Neuro :AA. non focal IVs and Medications Medications Reviewed: Medications were reviewed in detail Lab and Diagnostics Result Diagram: 12/06/16 1205 12/07/16 0441 X-Rays, CTs and MRIs Date of Service: 11/28/16 1409 PROCEDURE: X-RAY CHEST ONE VIEW, PORTABLE ([id number]) IMPRESSION: Shallow inspiration causes bibasliar atelectasis left greater than right. Infection is much less likely. Otherwise negative chest. Dictated by: Levi Malone M.D. on 11/28/2016 at 14:33 Approved by: Levi Malone M.D. on 11/28/2016 at 14:35 12-lead ECG NSR at about 70bpm. there is minimall ST elevation in the lateral leads but unchanged compared to the EKG from 11/20/16 Assessment & Plan #. C-diff Colitis : acute,not poa unlikely this is the cause of his 2 1/2 years of diarrhea as he has been tested negative for c-diff several time in that window of time . It may have contracted C-diff during this hospitalization or probably secondary to Zosyn In any case,started him on Flagyl 12/06. Patient on Rifaximin per notes but not seen on medication list. Hold off for now - Discontinued Zosyn and Protonix. #.Acute on chronic kidney injury, present on admission. - renal U/S is unremarkable -Monitor renal function and electrolytes . Nephrology fallowing. #. SOB : New . . He gained 16 lbs during the course of hospital stay . He may be fluid overload rather than dehydrated Received a dose of Lasix 12/06. Again gave Lasix 40 mg IV once 12/07 #Scrotal edema with urinary retention -Song inserted 12/06 #. Acute hypoglycemia with history of diabetes mellitus, present prior to admission. - Episode of hypoglycemia has been going on for a while and likely related to gastroparesis . Tolerating long acting insulin . Continue Lantus 14 units at bedtime - On sliding scale insulin for now #. Hypertension : initially hypotensive on admission requiring pressor . BP in 190 systolic now. Titrate up antihypertensive medications for blood pressure control . Increase Amlodipine to 10 mg PO daily. Consider adding hydralazine. Started on lisinopril 40 mg per day on 12/06 - #. Encephalopathy : Improved #. Acute UTI. Present on admission. - Completed IV Ceftriaxone (3 day ): -Urine culture grow mixte cheryl . Blood culture negative #. Mildly elevated Troponin. - Possible demand ischemia and amplified by underlying Lisa - Check Echo shows normal EF # H/H is stable #. Dysphagia > Seen by speech and swallow . MBS report review: o laryngeal penetration or tracheobronchial aspiration. There is severe esophageal dysmotility with tortuous and patulous appearance of the esophagus. #. Aspiration Pneumonia Completed zosyn Disposition: Discharge in 1-2 days.. GI Prophylaxis: Proton Pump Inhibitor VTE Prophylaxis: SCDs VTE Mechanical Devices: Intermittant Pneumatic CD Resuscitation Status: CPR: Attempt Resuscitation (discussed and verified with patient) Pelon Rose MD Dec 07, 2016 13:54 BMP in am . GI Prophylaxis: Proton Pump Inhibitor VTE Prophylaxis: SCDs VTE Mechanical Devices: Intermittant Pneumatic CD Resuscitation Status: CPR: Attempt Resuscitation (discussed and verified with patient) Pelon Rose MD Dec 07, 2016 13:54
--- NOTE | 2016-12-07 14:12 | NUR ---
Scrotal edema/pain/BM Pt c/o scrotal pain, rating at 7/10. Pt given PRN Morphine 2mg which helped pain somewhat. Later given Morphine 4mg which was more effective per pt's report. Scrotum is very edematous, aware and given orders for Lasix 40mg IV. Pt had a solid, soft BM today. Pt's daughter is at the bedside. Cont to monitor.
[2016-12-07] MEDS ORDERED: Furosemide 10 mg/mL 2 mL Inj IVPUSH ONE (16:35)
--- NOTE | 2016-12-07 17:00 | NUR ---
Decreased urinary output Pt care taken over at 1500. It was noted that the pt had little urinary output. Bladder scan shows 35mL. Pt encouraged to increase PO intake. Will continue to monitor.
--- NOTE | 2016-12-07 19:31 | NUR ---
Rapid response Family notified nursing staff that the pt was not verbally responsive. Pt was not keeping his head up on his own. Pt initially not responsive but then started answering questions, slightly slurred. Bradycardic in low fifties and O2 dropping to low eighties. Oxy mask placed at 4L and O2 increased to mid nineties. Rapid response called. ECG done. Pt now more alert and oriented. Dr. Mendoza notified. No new orders at this time. cable placer aware and will continue to monitor.
[2016-12-07] MEDS: Insulin GLARgine 100 Unit/mL Syringe SUBQ SCH (22:36)
[2016-12-08] VITALS (7 sets, daily range): BP systolic 145–166; BP diastolic 77–88; PULSE 57–65; RESP 16–18; O2SAT 97–100
[2016-12-08] MEDS: Heparin 5,000 Unit/mL Inj SUBQ SCH (00:27)
--- NOTE | 2016-12-08 02:16 | NUR ---
Hemoptysis Closely monitoring VS since rapid response at shift change. CPOX on, 2L O2 via NC and SaO2 remains 98+. HR 50+. At 2145 pt coughing and expectorating blood with some mucus, <5ml. No drainage from nares, no emesis. 99% O2 on 2L NC. MD notified and instructed to continue to monitor- no med changes. Lung bases decreased, coarse rattles in upper airway. No complaints of chest pain or shortness of breath. Given 2mg Morphine IV with good effect. Song draining pale pink urine. Genitalia cleaned and barrier cream applied. 1x soft involuntary BM this shift. Daughter remains in room. Care continues
[2016-12-08] MEDS: 0.9% Sodium Chloride 250 ML IV SCH ×2 (02:32→23:25)
--- NOTE | 2016-12-08 07:17 | NUR ---
Bloody Oral Cavity At shift change pt has blood dried in and around his mouth. Day nurse notified of nocturnal hemoptysis, VS monitoring, and that no labs have been ordered yet today. NOC hospitalist was paged regarding no labs several hours ago, awaiting orders as pt is RN draw. Care continues
[2016-12-08] MEDS: Insulin Human REGular 300 Unit/3 mL Inj SUBQ SCH ×4 (07:30→21:15)
--- NOTE | 2016-12-08 07:52 | PCM.PNMED ---
Subjective Date of Service Dec 08, 2016 Subjective Another rapid response, syncopal episode last night, witnessed by daughter; pt slowly drifted off which correlated with bradycardia at 40, heat rate came up 3-5 minutes and patient came back, never totally out, no seizure. Eating small amounts, diarrhea better. Exam Vital Signs Vital Sign - Last Date Time Temp Pulse Resp B/P Pulse Ox O2 Delivery O2 Flow Rate FiO2 12/08/16 07:20 36.3 59 16 166/88 99 Nasal Cannula 1.00 Intake and Output 12/07/16 12/07/16 12/08/16 Cumulative From/Thru 15:00 23:00 07:00 11/28/16 14:13 - 12/08/16 07:00 Intake Total 621 ml 16991 ml Output Total 1150 ml 82282 ml Balance -529 ml 9934 ml Intake Oral 240 ml 5494 ml IV Total 381 ml 21488 ml Output Urine Total 1150 ml 9875 ml Stool Total 900 ml # Voids 5 # Bowel Movements 1 17 Exam HEENT : PERRL, mucus membranes hydrated Neck: Supple, trachea midline, no JVD, Lung; No crackles , no wheezing Heart S1-S2 regular rate and rhythm no murmur no gallop Abdomen: Soft non tender, non distended, bowel sounds audible. Extremities: 1 plus edema, : Scrotal edema noted, no palp mass, tenderness to penis and whole scrotum, mild, no skin break down or bruising noted to suggest infection. Penis foreskin edematous Skin: No rash, no ulcers. Neuro :AA. non focal Lab and Diagnostics Result Diagram: 12/06/16 1205 12/07/16 0441 X-Rays, CTs and MRIs Date of Service: 11/28/16 1409 PROCEDURE: X-RAY CHEST ONE VIEW, PORTABLE ([id number]) IMPRESSION: Shallow inspiration causes bibasliar atelectasis left greater than right. Infection is much less likely. Otherwise negative chest. Dictated by: Levi Malone M.D. on 11/28/2016 at 14:33 Approved by: Levi Malone M.D. on 11/28/2016 at 14:35 12-lead ECG NSR at about 70bpm. there is minimall ST elevation in the lateral leads but unchanged compared to the EKG from 5/20/17 Assessment & Plan 1. C-diff Colitis : acute,not poa -unlikely this is the cause of his 2 1/2 years of diarrhea as he has been tested negative for c-diff several time in that window of time . -started him on Flagyl 12/06. Day=#3 -Patient on Rifaximin per notes but not seen on medication list. Hold off for now -Discontinued Zosyn and Protonix. 2. Acute on chronic kidney injury, present on admission. -renal U/S is unremarkable -Monitor renal function and electrolytes . -Nephrology fallowing. 3. SOB : New . . -He gained 16 lbs during the course of hospital stay . -He may be fluid overload rather than dehydrated -lasix 40 IV today 4. Scrotal edema with urinary retention -Song inserted 12/06 -testicular ultrasound 5. Acute hypoglycemia with history of diabetes mellitus, present prior to admission. - Episode of hypoglycemia has been going on for a while and likely related to gastroparesis . -Tolerating long acting insulin . Continue Lantus 14 units at bedtime with correction insulin low dose -due to gastric emptying problems and recurrent hypoglycemic episodes I would let patient's blood sugars run higher 6. Hypertension, poa, stable : -initially hypotensive on admission requiring pressor . -BP better now -with rising creatinin nephrology may reconsider the HAIM -with recurrent episodes of symptomatic bradycardia will reduce or even d/c b alen 7. Bradycardia, active -reduce or even d/c b alen -thyroid tests OK 8. Encephalopathy : -Improved 9. Acute UTI. Present on admission, resolved. - Completed IV Ceftriaxone (3 day ): -Urine culture grow mixte cheryl . Blood culture negative 10. Mildly elevated Troponin. - Possible demand ischemia and amplified by underlying Lisa - Check Echo shows normal EF 11. Dysphagia > Seen by speech and swallow . -MBS report review: o laryngeal penetration or tracheobronchial aspiration. There is severe esophageal dysmotility with tortuous and patulous appearance of the esophagus. 12.. Aspiration Pneumonia, improving Completed zosyn 13. Pain Management -prn IV morphine ordered . GI Prophylaxis: Proton Pump Inhibitor VTE Prophylaxis: SCDs VTE Mechanical Devices: Intermittant Pneumatic CD Resuscitation Status: CPR: Attempt Resuscitation (discussed and verified with patient) Renate Pascual MD Dec 08, 2016 07:51
[2016-12-08] MEDS ORDERED: Furosemide 10 mg/mL 4 mL Inj IVPUSH ONE (08:00)
--- NOTE | 2016-12-08 09:11 | NUR ---
AZAEL signed by pt's daughter by phone. Gaye Rodriguez TRAY CASTING MACHINE OPERATOR
--- NOTE | 2016-12-08 09:20 | NUR ---
Social Work: Continued Discharge Planning D: EMR reviewed. Pt discussed in rounds. Pt is on day 10 of hospitalization for R/O NH, Acute Renal Failure, Hypertension per H&P. Pt is not medically stable at this time, has been vomiting blood. Hospitalist reports pulmonary will consult and pt is likely to transfer up to [facility]. Pt has been on RN hold to work with physical therapy the past two days as MAP >110. Last assessment / pt was moderate to max assist throughout the evaluation. Recommendation at that time is SNF. SAGAR has received orders from MD for senior living placement for pt. SAGAR placed phone call to pt's daughter Omid [phone] regarding SNF recommendation and to explore family's care plan at home. Omid confirms that she will not consent to pt discharging to SNF. She feels confident that with her family's assistance (she coordinates care for her father with family and friends) and Home Health she will be able to bring her father home. SAGAR explained that pt is a moderate to max assist depending on the movements. She states she is a HEATER HELPER and has training for assisting pt with mobility and understanding of pt's medical needs at this time. She denied having any additional questions or concerns at this time. At this time the recommendation is for skilled rehab however patient's family states that they will not consent to the patient going to rehab and intend to take them home with [facility]. SAGAR to relay this information to MD and await further orders to continue coordinating plan of care. SW will continue to follow. A: Pt who lives at home with family who provides 24/ care. P: PROFESSOR OF COMMUNICATION ARTS will continue to follow pt's clinical course and assist with safe discharge planning. Anticipate pt will likely discharge home with [facility] as this is family's request. SAGAR to await orders to resume HH RN PT and frequency. YAYA Keller
--- NOTE | 2016-12-08 10:11 | DRSVH ---
PROCEDURE: X-RAY CHEST ONE VIEW, PORTABLE ([id number]) INDICATIONS: hemoptysis TECHNIQUE: One view of the chest was acquired. COMPARISON: [facility], CR, XR CHEST 1VW (PORTABLE), 12/03/2016, 18:38. FINDINGS: Surgical changes and devices: There is a right-sided central line catheter identified with the tip ov erlying the mid superior vena cava. Lungs and pleura: There has been interval improvement in the aeration of the lungs with decrease in d egree of perihilar interstitial and alveolar prominence. However, there continues to be airspace dis ease identified within the medial right lung base and the left lung base. No pneumothorax or large e ffusion is evident. Mediastinum: Mediastinal contours appear normal. Heart size is normal. Bones and chest wall: No suspicious bony lesions. Overlying soft tissues appear unremarkable. IMPRESSION: Improving aeration of the lungs with residual bibasilar airspace disease. No large effus ion or pneumothorax. Given the patient's history of hemoptysis, CT of the chest with contrast would be helpful for further evaluation. Dictated by: Javy Crump M.D. on 12/08/2016 at 9:06 Approved by: Javy Crump M.D. on 12/08/2016 at 9:10
[2016-12-08 10:26] LABS: Mean Corpuscular Hemoglobin 23.3 pg (27.0-35.0)
[2016-12-08 10:44] LABS: INR 1.1 ratio
[2016-12-08 11:18] LABS: COLOR,URINE BLOODY (YELLOW)
[2016-12-08 11:19] LABS: APPEARANCE,URINE CLOUDY (CLEAR,HAZY); OCCULT BLOOD,URINE LARGE (NEGATIVE); UROBILINOGEN,URINE NORMAL (NORMAL)
--- NOTE | 2016-12-08 11:55 | DRSVH ---
PROCEDURE: US TESTICULAR SONOGRAM WITH DOPPLER INDICATIONS: scrotal swelling, testicular pain TECHNIQUE: Real-time scanning was performed of the scrotum and testicles, with image documentation. Color and p ulse Doppler interrogation was performed of both testicles. COMPARISON: None. FINDINGS: Right: Testicle is normal in size at 4.0 x 2.8 x 2.8 cm, and homogenous in echotexture. Epididymis is normal in overall size and morphology. Small hydrocele. Overlying scrotal skin is diffusely thic kened and edematous as well as hyperemic Left: Testicle is normal in size at 4.1 x 2.4 x 2.7 cm, and homogeneous in echotexture. Epididymis is normal in overall size and morphology. Small hydrocele. Overlying scrotal skin is diffusely thic kened, edematous and hyperemic Doppler: Color and pulse Doppler demonstrate normal and symmetric arterial flow in both testicles. Venous flow not definitively identified bilaterally. IMPRESSION: 1. No definite venous flow visualized within the testicles bilaterally which otherwise appear normal and there is normal arterial flow. 2. Diffuse scrotal wall thickening, edema and hyperemia. Cellulitis cannot be excluded. Recommend d irect visualization. 3. Small bilateral hydroceles. Dictated by: Fernando CA Interpreted: Alia Hollins MD on 12/08/2016 at 11:35 Approved by: Alia Hollins MD, PhD on 12/08/2016 at 11:53
--- NOTE | 2016-12-08 13:20 | NUR ---
NUTRITION FOLLOW UP: ASSESS: Pt is a 71 YO male admitted with hypoglycemia, persistent diarrhea and MURPHY. Renal following, reports MURPHY likely 2/2 obstructive uropathy,ATN and NSaids. Pt experienced syncopal episode, to have chest x-ray. Additionally, SOB noted and increased weight, suggesting fluid overload, started on lasix. C.Diff +. Hypoglycemic episodes likely related to gastroparesis per MD notes. Pt has been experiencing persistent diarrhea over the last several years. GI is following and was initially concerned about dumping syndrome; however the gastric emptying study and small bowel follow-through results do not support this. Diet education was noted to be cancelled. PMHX: Peripheral neuropathy, DM, HTN, Anemia, Legally blind, Recent GI bleed, chronic intermittent diarrhea for past 2 years. LABS: Reviewed. Na 147, BUN 29,Cr 2.14,Glu 100,Alb 2.9 MEDS:Reviewed. Insulin, rifaximine. GI: BM x 1 yesterday. C.Diff + SKIN: No pressure injuries, per Integration Manager. WTS: 87.4kg, BMI 26.9kg/m2, admit wt 76.9kg DIET: HH/CC, PO 100% EST. NEEDS: Kcals: 1920-2310kcal/day (25-30kcal/kg) Pro: 75-95g/day (1.0-1.2g/kg) NUTRITION DIAGNOSIS: 1) Altered GI function related to unknown etiology as evidence by persistent diarrhea---IMPROVING. MD notes indicate improvement in diarrhea. NUTRITION INTERVENTION: 1) Per GI request, will supplement each meal with consistent carbohydrate nutritional supplements. MONITOR / EVAL: GI, labs, wt, PO, POC, nutrition status. Will continue to monitor per moderate nutrition risk guidelines.
[2016-12-08] MEDS ORDERED: Nystatin 100,000 Unit/Gm 15 Gm Powder TOPICAL PRN (14:50)
--- NOTE | 2016-12-08 15:09 | DRSVH ---
PROCEDURE: CT CHEST WITHOUT CONTRAST ([id number]) INDICATIONS: hemptysis, recent pneumonia TECHNIQUE: Noncontrast 5 mm thick sections acquired from the pulmonary apices to the posterior costophrenic angl es. 7 mm thick coronal and sagittal MIP reformats were then acquired. For radiation dose reduction, the following was used: automated exposure control, adjustment of mA and/or kV according to patient size. COMPARISON: [facility], CT, CT CHEST ABD PELVIS W CON, 10/24/2015, 14:39. FINDINGS: Image quality: Excellent. Lungs and pleura: The visualized airways are patent. There is severe bilateral lower lobe airspace o pacity. No pneumothorax. Small bilateral parapneumonic effusions are present. Mediastinum: Heart size is enlarged, and there is calcification of the coronary vasculature. No hillary cardial effusion. No mediastinal adenopathy by size criteria. Thoracic aorta and central pulmonary arteries are normal in size. Esophagus is normal in caliber. No hiatal hernia. Bones and chest wall: Moderate diffuse thoracic kyphosis. No suspicious bony lesions. No vertebral body compression fractures. No axillary or supraclavicular adenopathy by size criteria. Thyroid gla nd is grossly unremarkable on noncontrast imaging. Abdomen: Visualized upper abdominal solid organs and bowel loops appear normal in the absence of con trast. IMPRESSION: 1. Severe bilateral lower lobe pneumonia. Small parapneumonic effusions bilaterally. Continued plain film surveillance is recommended to ensure resolution, and to exclude underlying or central malignanc y. 2. Cardiomegaly and coronary artery disease. Dictated by: Werner Sanabria M.D. on 12/08/2016 at 14:57 Approved by: Werner Sanabria M.D. on 12/08/2016 at 15:08
--- NOTE | 2016-12-08 15:43 | NUR ---
Transfer Patient transferred to [facility] room 2023 this early afternoon for closer observation. patient alert but having new episodes of hemoptysis that started last night . Patient with pain to scrotal area. Scrotum is significantly swollen and few blister areas noted to right groin area. Pt with glucose levels of 114 and then 86 at lunch very poor appetite . Labs and some radiology scans done today. family at bedside and aware of transfer. Report was given to [email or web address] nurse Alicia Mosher .
[2016-12-08] MEDS ORDERED: Vancomycin Dose per Pharmacist XX STA ×2 (17:25→18:26)
[2016-12-08] MEDS ORDERED: Vancomycin Inj 1,000 MG in 0.9% Sodium Chloride 250 ML IV SCH (18:00)
[2016-12-08] MEDS ORDERED: cefTRIAXone Inj 2,000 MG in Dextrose 5% Minibag Plus 50 ML IV SCH (18:00)
[2016-12-08] MEDS: Vancomycin Dose per Pharmacist XX SCH (18:28)
[2016-12-08] MEDS: 0.9% NaCl + KCl 20 mEq/L 1,000 ML IV SCH (18:35)
[2016-12-08] MEDS ORDERED: 0.9% Sodium Chloride 500 ML IV ONE (18:40)
--- NOTE | 2016-12-08 18:49 | PCM.CONPHA ---
Subjective Date of Service: Dec 08, 2016 Nephrology Service Consultation Jared Goodrich PGY2 and attending Dr. Navarro Reason for Consult: MURPHY on CKD Reason for Pharmacy Consult: Vancomycin Dosing Objective Vital Signs Date Time Temp Pulse Resp B/P Pulse Ox O2 Delivery O2 Flow Rate FiO2 12/08/16 11:16 65 12/08/16 08:51 57 99 Nasal Cannula 1.50 12/08/16 08:30 Supplement Oxygen 12/08/16 07:20 36.3 59 16 166/88 99 Nasal Cannula 1.00 12/08/16 04:56 65 18 99 Nasal Cannula 2.00 12/08/16 04:00 Supplement Oxygen 12/08/16 02:02 36.2 60 16 152/81 100 Nasal Cannula 1.00 12/07/16 21:55 36.0 52 14 130/75 98 Nasal Cannula 4.00 12/07/16 20:00 52 12/07/16 19:40 Supplement Oxygen 12/07/16 18:55 53 14 126/58 99 OxyMask 4.00 Intake and Output 12/06/16 12/07/16 12/08/16 00:00 00:00 00:00 Intake Total 1198 ml 905 ml 621 ml Output Total 1650 ml 2575 ml 1150 ml Balance -452 ml -1670 ml -529 ml Weight (Kilograms): 87.400 Height (Feet): 5 Height (Inches): 11.00 Test 11/28/16 14:10 11/29/16 05:10 11/30/16 07:45 11/30/16 17:57 Free Thyroxine 1.28ng/dL (0.82-1.77) Triglycerides Level 82mg/dL (0-149) Cholesterol Level 95mg/dL (100-199) LDL Cholesterol, Calculated 19.600mg/dL (0-99) VLDL Cholesterol 16.400mg/dL HDL Cholesterol 59mg/dL (>39) Cholesterol/HDL Ratio 1.61 (0.0-4.4) Ferritin 106ng/mL (30-400) Troponin T 0.047ug/L (0.0-0.011) Urine Random Creatinine 82mg/dL (22-328) Urine Random Total Protein 48mg/dL (0-15) Urine Total Protein 53.6mg/dL (Not Estab.) Urine Albumin 49.1% (.) Urine Qmwlt-9-Dytgrzcb 1.7% (.) Urine Gzgbx-1-Gekxfxdrw 4.1% (.) Urine Beta Globulin 9.8% (.) Urine Gamma Globulin 35.2% (.) Urine Protein Electrophoresis Note Comment (.) Urine Monoclonal Protein % Not observed% (Not Observed) Test 12/02/16 01:00 12/02/16 04:59 12/06/16 06:05 12/06/16 12:05 Cortisol 7.9ug/dL (.) Activated Partial Thromboplast Time 24.7sec (22.8-33.0) Phosphorus Level 4.8mg/dL (2.5-4.9) Magnesium Level 2.3mg/dL (1.6-2.6) Thyroid Stimulating Hormone (TSH) 2.770uIU/mL (0.450-4.500) Neutrophils (%) (Auto) 78.1% (40-74) Lymphocytes (%) (Auto) 12.8% (14-46) Monocytes (%) (Auto) 6.8% (4-12) Eosinophils (%) (Auto) 1.7% (0-5) Basophils (%) (Auto) 0.3% (0-3) Iron Level 34ug/dL (35-150) Total Iron Binding Capacity 250ug/dL (250-450) Percent Iron Saturation 14%sat (15-50) Unsaturated Iron Binding 216.1ug/dL Test 12/07/16 04:41 12/08/16 10:20 12/08/16 10:21 12/08/16 10:41 Total Bilirubin 0.3mg/dL (0.0-1.2) Aspartate Amino Transf (AST/SGOT) 20U/L (0-50) Alanine Aminotransferase (ALT/SGPT) 29U/L (0-44) Alkaline Phosphatase 142U/L (25-160) Total Protein 6.7g/dL (6.4-8.4) Albumin 2.9g/dL (3.4-5.0) Erythrocyte Sedimentation Rate 26mm/hr (0-30) White Blood Count 7.4th/mm3 (3.8-10.1) Red Blood Count 3.78mil/mm3 (4.40-5.80) Hemoglobin 8.8g/dL (13.8-17.2) Hematocrit 29.1% (41.0-50.0) Mean Corpuscular Volume 77.0fL (81-100) Mean Corpuscular Hemoglobin 23.3pg (27.0-35.0) Mean Corpuscular Hemoglobin Concent 30.2% (32.0-37.0) Red Cell Distribution Width 23.6% (12.3-15.4) Platelet Count 146bil/L (150-400) Prothrombin Time 11.8sec (8.1-12.5) Prothromb Time International Ratio 1.10ratio Sodium Level 147mEq/L (134-144) Potassium Level 4.1mEq/L (3.5-5.2) Chloride Level 109mEq/L (97-108) Carbon Dioxide Level 28mmol/L (18-29) Blood Urea Nitrogen 29mg/dL (8-27) Creatinine 2.14mg/dL (0.76-1.27) Estimat Glomerular Filtration Rate 33mL/min (>59) Glucose Level 100mg/dL (60-99) Calcium Level 8.7mg/dL (8.5-10.1) Urine Color Bloody (YELLOW) Urine Appearance Cloudy (CLEAR,HAZY) Urine pH 5.0 (5.0-8.0) Urine Specific [place] 1.025 (1.003-1.035) Urine Protein 100mg/dL (NEG,TRACE) Urine Glucose (UA) Negativemg/dL (NEGATIVE) Urine Ketones Negativemg/dL (NEGATIVE) Urine Occult Blood Large (NEGATIVE) Urine Nitrite Negative (NEGATIVE) Urine Bilirubin Negative (NEGATIVE) Urine Urobilinogen Normalmg/dL (NORMAL) Urine Leukocyte Esterase Trace (NEGATIVE) Urine RBC >50/hpf (0-2) Urine WBC 0-5/hpf (0-5) Urine Epithelial Cells Occasional/hpf (NONE-MOD) Urine Crystals None seen (NONE SEEN) Urine Bacteria Few/hpf (NONE-FEW) Urine Hyaline Casts None/lpf (NONE) Urine Granular Casts None seen (NONE SEEN) Urine Waxy Casts None seen (NONE SEEN) Urine Red Blood Cell Casts None seen (NONE SEEN) Urine White Blood Cell Casts None seen (NONE SEEN) Urine Mucus None seen (None Seen) Urine Trichomonas None seen (NONE SEEN) Urine Yeast None (NONE SEEN) Urinalysis Comment None Urine Culture Reflexed Indicated Test 12/08/16 12:27 12/08/16 18:01 Lactic Acid Level 0.5mmol/L (0.4-2.0) Assessment/Plan Assessment/Plan VANCOMYCIN MANAGEMENT A\ 71yo M with MURPHY starting empiric Vancmycin for scrotal blistering Vancomycin goal 10-15 SCr= 2.14 GFR=33 afebrile Also receiving ceftriaxone and clindamycin. P\ Due to evlevated creatinine will not load vancomycin. Vancomycin 1000mg IV Q24H with a level before the 3rd dose 6\9 1730 Monitor serum creatinine daily x3 Thanks you for the opportunity to consult Jonathan Mckee [facility] Dec 08, 2016 18:48
--- NOTE | 2016-12-08 19:10 | NUR ---
Scrotal swelling Reporting 5-6/10 scrotal pain, any sort of manipulation for adjustments causes significant discomfort. Pillow case used as a sling in addition to towels to stick underneath for elevation. Pitting edema, 2 blood blisters noted on scrotum with small clear filled blisters in inguinal folds. Nystatin powder ordered: per patient, hillary area is itching. Tele has been SR 60s, no ectopy. SPO2 on RA mid 90s. Patient reports mild nausea after eating, eating approx 50% of meals. Song patent draining rg urine to gravity (cloudy).
[2016-12-08] MEDS: Clindamycin Inj 900 MG in IV Premix 1 EACH IV SCH (19:38)
[2016-12-08] MEDS: Insulin GLARgine 100 Unit/mL Syringe SUBQ SCH (20:53)
[2016-12-08] MEDS ORDERED: Vancomycin Inj 1,000 MG in IV Premix 1 EACH IV ONE (21:37)
--- NOTE | 2016-12-08 22:19 | CONS ---
[address] [address] CONSULTATION REPORT PATIENT: TRICIA RAMIREZ : 1945 MR#: [id number] ADMIT: 11/28/2016 JOB ID: [id number] DATE OF SERVICE: 12/08/2016 CHIEF COMPLAINT: Scrotal swelling. HISTORY OF PRESENT ILLNESS: I was asked by hospitalist, Dr. Jas Pascual to evaluate this 71-year-old male for scrotal swelling. The patient is presently hospitalized for C. diff colitis, acute on chronic renal failure, encephalopathy, aspiration pneumonia and possible UTI which was treated with ceftriaxone. The patient developed urinary retention with a postvoid residual of 695 mL and had a Song catheter placed on December 06, 2016. The patient states he did not have any problems with urination prior to hospitalization. The patient reports bilateral scrotal pain, bilateral scrotal swelling, no abdominal pain, occasional nausea, no vomiting. PAST MEDICAL HISTORY: 1. Diabetes mellitus with peripheral neuropathy. 2. Hypertension. 3. Anemia. 4. Legally blind. 5. History of recent GI bleed. 6. Chronic intermittent diarrhea. PAST SURGICAL HISTORY: Right hip replacement. MEDICATIONS: Present hospital medications: Vancomycin IV, ceftriaxone IV, clindamycin IV, nystatin p.r.n., lisinopril, morphine IV p.r.n., Flagyl p.o., Norvasc, sodium bicarbonate, albuterol p.r.n., insulin, Flomax 0.4 mg p.o. daily which it appears the patient was started on on December 01, 2016 with doses held on December 02, December 03 and December 04 with Flomax restarted on December 05, 2016. Continue with the medications Lipitor, Zofran p.r.n., Senokot p.r.n., MiraLAX p.r.n. and Tylenol p.r.n. ALLERGIES: No known drug allergies. SOCIAL HISTORY: Occasional alcohol use. No substance use. No tobacco use. FAMILY HISTORY: Noncontributory. REVIEW OF SYSTEMS: Constitutional: No fever. No shaking chills. GI: Positive for nausea. No vomiting. PHYSICAL EXAMINATION: Vital signs: Afebrile, temperature 36.3 degrees Celsius, heart rate 59, respiratory rate 16, BP 166/88, O2 sat 99% on 1 L nasal cannula. Song catheter: Urine output 2100 mL the last 8 hour shift. General: Well-developed, well-nourished, elderly male, in no acute distress. HEENT exam: Head normocephalic, atraumatic. Eyes: Extraocular muscles intact. Neck is supple. Chest: No use of accessory muscles. Nonlabored respirations. No retractions. Abdomen is soft, nondistended, nontender. No pelvic masses. No rebound. No guarding. exam: Urethral meatus normal. Penis uncircumcised, [id number]-eb-utdvmcfg edema. Mild paraphimosis which was able to be reduced manually at the bedside. The Song catheter in place draining clear, yellow urine. The testes unable to be palpated secondary to scrotal swelling. Scrotum: Moderate to severe bilateral scrotal swelling with no erythema, no warmth, no discharge, no fluctuance, no crepitus. Tender bilaterally in the bilateral lower extremities with pitting edema. Skin: Warm and dry. Neurologic examination: Sensation grossly intact to touch. Normal speech. Psych exam: Alert and oriented x3. Normal mood and affect. LABORATORIES: This morning, white blood cell count normal at 7.4, hematocrit 29.1, platelets 146. Sodium 147, potassium 4.1, chloride 109, CO2 28, BUN 29, creatinine 2.14, glucose 100, lactic acid 0.5. Urinalysis from today showed greater than 50 red blood cells, 0-5 white blood cells, negative nitrite, trace leukocyte esterase. Microbiology on November 28, 2016. Urine culture mixed urogenital cheryl. Blood cultures negative november 29, 2016. Urine culture negative. On December 08, 2016, urine culture and blood cultures pending. IMAGING: Renal ultrasound on November 30, 2016, showed no hydronephrosis, no nephrolithiasis, no renal mass lesions, subcentimeter bilateral renal cysts. Scrotal ultrasound today showed normal bilateral testes with no testicular masses with normal and symmetric arterial flow in bilateral testes, small bilateral hydroceles, diffusely thickened, edematous and hyperemic bilateral scrotal skin consistent with possible scrotal cellulitis. ASSESSMENT: 1. Significant bilateral scrotal swelling and also some penile swelling secondary to anasarca and also possible minimal bilateral scrotal cellulitis. 2. Urinary retention status post Song catheter placement on December 06, 2016. 3. Mild paraphimosis status post reduction of paraphimosis at the bedside. 4. Acute on chronic renal failure with renal ultrasound on November 30, 2016 showing no hydronephrosis. PLAN: Recommend scrotal support and scrotal elevation at all times. Recommend diuresis for the patient's anasarca. Recommend and agree with broad-spectrum IV antibiotics for possible scrotal cellulitis. Anticipate that the patient's scrotal swelling will slowly improve with time with the above measures. The patient was advised to keep the foreskin reduced and covering the head of his penis at all times unless the penis is being cleaned to prevent paraphimosis. Recommend leaving the Song catheter in place. Recommend considering increasing Flomax to 0.4 mg p.o. b.i.d. Song catheter can be removed prior to discharge. Recommend following up on urine and blood culture results.
[2016-12-09] VITALS (7 sets, daily range): BP systolic 127–141; BP diastolic 66–85; PULSE 55–63; RESP 14–16; O2SAT 93–98
[2016-12-09] MEDS: 0.9% NaCl + KCl 20 mEq/L 1,000 ML IV SCH (00:59)
[2016-12-09] MEDS: Clindamycin Inj 900 MG in IV Premix 1 EACH IV SCH ×2 (01:22→10:59)
[2016-12-09 01:57] LABS: BASOPHILS % (AUTO) 0.3 % (0-3); EOSINOPHILS % (AUTO) 2.6 % (0-5); MONOCYTES % (AUTO) 7.4 % (4-12); Mean Corpuscular Hemoglobin 22.8 pg (27.0-35.0); Mean Corpuscular Volume 76.6 fL (81-100); Platelet Count 135 bil/L (150-400)
[2016-12-09] MEDS: Dextrose 10% 250 ML IV PRN ×3 (03:08→22:25)
--- NOTE | 2016-12-09 06:07 | NUR ---
PAIN/BS Pt c/o scrotal pain, received 2mg Morphine with good results. Pt's BS 141, no sliding scale given, gave 14 units Lantus as ordered. Pt 's BS dropped into the low 70's throughout the night, gave D10W 250 bolus, BS maintained in 170's. Pts VSS, RA - 2L NC for comfort, c/o mild SOB while swallowing pills crushed in pudding. No other issues noted at this time.
[2016-12-09] MEDS: Insulin Human REGular 300 Unit/3 mL Inj SUBQ SCH ×2 (07:30→11:30)
[2016-12-09] MEDS: Vancomycin Dose per Pharmacist XX SCH (08:20)
--- NOTE | 2016-12-09 08:50 | PCM.PNNEPH ---
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 His stay is further complicated by labile hypertension, and currently pneumonia and C.diff infection. Patient complaint of significant scrotal edema for the past 3 days requiring increasing pain medications. Further evaluation with testicular US and urology consultation suggests etiology likely related to edema and possible cellulitis. Patient currently on broad spectrum abx: ceftriaxone, clindamycin and vancomycin, in addition to metronidazole for c.diff. Repeat UA redemonstrate significant RBC, which was initially thought 2nd to UTI- (had completed course of ceftriaxone) thus, prompted immune panel. ASO <20.0, complement C3/C4 137/34. Other labs including JAN pending No significant overnight events. BP and HR stable. BP 138/79, HR in the mid-50' s. Has good urine output 1.29cc/kg/hr. I/O 1.6/2.7L. Cr 1.91, stable. Labs significant for mild hypernatremia. Patient denies any fever, chills, nausea, vomiting, or diarrhea. Exam Vital Signs Vital Sign - Last Date Time Temp Pulse Resp B/P Pulse Ox O2 Delivery O2 Flow Rate FiO2 12/09/16 07:57 36.6 56 14 138/79 95 Room Air 12/08/16 08:51 1.50 Intake and Output 12/08/16 12/08/16 12/09/16 Cumulative From/Thru 15:00 23:00 07:00 11/28/16 14:13 - 12/09/16 06:17 Intake Total 320 ml 1360 ml 850 ml 38405 ml Output Total 600 ml 2100 ml 500 ml 18787 ml Balance -280 ml -740 ml 350 ml 9264 ml Intake Oral 320 ml 1360 ml 7174 ml IV Total 850 ml 46804 ml Output Urine Total 600 ml 2100 ml 500 ml 15906 ml Stool Total 900 ml # Voids 5 # Bowel Movements 1 18 Exam Gen: Lying comfortably at 30degree head tilt HEENT: PERRLA, Anicteric sclerae, Neck: supple, no JVD, Cardio: Regular rate and rhythm with no murmurs, rubs, or gallops appreciated Pulm: b/l air sound, no crackles, wheezes, or rhonchi. Normal respiratory effort with no use of accessory muscles. Abd: positive bowel tone. Soft, nontender, nondistended. Extremities: No clubbing, cyanosis, or lymphadenopathy appreciated. moderate pitting edema to the thigh, scrotal swelling with weeping blisters. +Song cath Skin: Normal temperature and texture; normal skin turgor, no rash, Neuro: moving equally on 4 limbs. Psyc: Normal mood and affect. AoX3 Lab and Diagnostics Result Diagram: 12/09/1614412/09/16144 X-Rays, CTs and MRIs Date of Service: 11/28/16 1409 PROCEDURE: X-RAY CHEST ONE VIEW, PORTABLE ([id number]) IMPRESSION: Shallow inspiration causes bibasliar atelectasis left greater than right. Infection is much less likely. Otherwise negative chest. Dictated by: Levi Malone M.D. on 11/28/2016 at 14:33 Approved by: Leiv Malone M.D. on 11/28/2016 at 14:35 12-lead ECG NSR at about 70bpm. 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 # Hematuria Plan: # Cont antihypertensive regiment, cont amlodipine and lisinopril, d/c coreg 2nd bradycardia - Evidence risk<benefits of HAIM-i. # Caution use of 1/2 NS in the setting of CHF, severe edema. # Awaits for immune biomarkers Kiet Obrien DO 12/09/16 1415: Exam Lab and Diagnostics Result Diagram: 12/09/1614412/09/16144 Plan Plan: Patient was seen and examined along with the resident. He has considerably less hemoptysis and the case was discussed with Dr. Sweeney from pulmonary. We have discussed the case and I agree with the findings and the therapeutic plan. Jared Goodrich DO Dec 09, 2016 08:50 Kiet Obrien Dec 09, 2016 14:15
--- NOTE | 2016-12-09 09:40 | NUR ---
Case discussed with RN. Pt continues to report anxiety and difficulty breathing with all PO intake. Symptoms, clinical swallow evaluation, and findings of barium esophagram indicate severe esophageal phase dysphagia. Recommend further evaluation of the esophagus and that pt be NPO with sips and chips, due to severity of symptoms.
[2016-12-09] MEDS: Piperacillin-Tazo 3.375 Gm Inj 3.375 GM in Dextrose 5% Minibag Plus 50 ML IV SCH ×2 (11:45→16:05)
--- NOTE | 2016-12-09 11:51 | PCM.PNMED ---
Subjective Date of Service Dec 09, 2016 Subjective Patient was transferred to the second floor. He is doing well. He is interviewed along with his daughter is durable alternative for healthcare. He has a long history of choking after eating. CT scan yesterday is consistent with aspiration pneumonia as well as retained fluid in the esophagus. No known history of esophageal stricture. No prior endoscopy. His scrotal edema continues us some green discharge. He has a diagnosis of C. difficile toxin colitis but has had no bowel movement for 2 days and had a normal bowel movement 2 days ago. No abdominal pain. No fevers or chills. He would be open to a feeding tube if needed. No overnight events Exam Vital Signs Vital Sign - Last Date Time Temp Pulse Resp B/P Pulse Ox O2 Delivery O2 Flow Rate FiO2 12/09/16 08:00 57 12/09/16 07:57 36.6 14 138/79 95 Room Air 12/08/16 08:51 1.50 Intake and Output 12/08/16 12/08/16 12/09/16 Cumulative From/Thru 15:00 23:00 07:00 11/28/16 14:13 - 12/09/16 06:17 Intake Total 320 ml 1360 ml 850 ml 68858 ml Output Total 600 ml 2100 ml 500 ml 50993 ml Balance -280 ml -740 ml 350 ml 9264 ml Intake Oral 320 ml 1360 ml 7174 ml IV Total 850 ml 00317 ml Output Urine Total 600 ml 2100 ml 500 ml 40761 ml Stool Total 900 ml # Voids 5 # Bowel Movements 1 18 Exam Alert and oriented -3, no distress. Fluent speech Anicteric sclera. Lungs are clear with normal rate and effort Heart is regular without murmur gallop or rub Abdomen soft nontender, flat Extremities are free of edema. Skin is free of rash or lesions. His pronounced scrotal edema as well as some penile edema. There is some skin breakdown as well as some discharge. IVs and Medications Medications Reviewed: Medications were reviewed in detail Lab and Diagnostics Result Diagram: 12/09/1614412/09/16144 X-Rays, CTs and MRIs Date of Service: 11/28/16 5039 PROCEDURE: X-RAY CHEST ONE VIEW, PORTABLE ([id number]) IMPRESSION: Shallow inspiration causes bibasliar atelectasis left greater than right. Infection is much less likely. Otherwise negative chest. Dictated by: Levi Malone M.D. on 11/28/2016 at 14:33 Approved by: Levi Malone M.D. on 11/28/2016 at 14:35 12-lead ECG NSR at about 70bpm. there is minimall ST elevation in the lateral leads but unchanged compared to the EKG from 11/20/16 Assessment & Plan 1. C-diff Colitis : acute,not poa -unlikely this is the cause of his 2 1/2 years of diarrhea as he has been tested negative for c-diff several time in that window of time . -started him on Flagyl 12/06. Day=#3 -Patient on Rifaximin per notes but not seen on medication list. Hold off for now -At this point we will continue on by mouth metronidazole. I suspect this likely will be switched to by mouth vancomycin in the next day or so. 2. Acute on chronic kidney injury, present on admission. Improving.. -renal U/S is unremarkable -Monitor renal function and electrolytes . -Nephrology fallowing. 3. SOB, probable acute diastolic heart failure. : Improved.. -He gained 16 lbs during the course of hospital stay . -He may be fluid overload rather than dehydrated -lasix 40 IV yesterday, follow clinically 4. Scrotal edema with urinary retention -Song inserted 12/06 -testicular ultrasound Urology is following we will continue the recommendations of scrotal elevation and volume control. 5. Acute hypoglycemia with history of diabetes mellitus, present prior to admission. And active. We will place him on D5 half-normal saline at 75 to prevent hypoglycemia. - Episode of hypoglycemia has been going on for a while and likely related to gastroparesis . -Tolerating long acting insulin . Continue Lantus 14 units at bedtime with correction insulin low dose -due to gastric emptying problems and recurrent hypoglycemic episodes I would let patient's blood sugars run higher 6. Hypertension, poa, stable : -initially hypotensive on admission requiring pressor . -BP better now -with rising creatinin nephrology may reconsider the HAIM -with recurrent episodes of symptomatic bradycardia will reduce or even d/c b alen 7. Bradycardia, active -reduce or even d/c b alen -thyroid tests OK 8. Encephalopathy, POA. : -Resolved. 9. Acute UTI. Present on admission, resolved. - Completed IV Ceftriaxone (3 day ): -Urine culture grow mixte cheryl . Blood culture negative 10. Mildly elevated Troponin. - Possible demand ischemia and amplified by underlying Lisa - Check Echo shows normal EF 11. Dysphagia > Seen by speech and swallow . This sounds like this condition has been POA. The patient has evidence of probable esophageal dysmotility with retained liquids and esophagus on 2 prior [address]s. -MBS report review: o laryngeal penetration or tracheobronchial aspiration. There is severe esophageal dysmotility with tortuous and patulous appearance of the esophagus. We will request GI consult for upper endoscopy to rule out stricture or other mechanical causes of his esophageal dysmotility. 12.. Aspiration Pneumonia, improving We will resume zosyn for coverage of ongoing aspiration as well as possible scrotal skin infection. 13. Pain Management -prn IV morphine ordered, high-risk medication Patient is full resuscitation, this is confirmed today. . GI Prophylaxis: Proton Pump Inhibitor VTE Prophylaxis: SCDs VTE Mechanical Devices: Intermittant Pneumatic CD Resuscitation Status: CPR: Attempt Resuscitation (discussed and verified with patient) Milton Busby MD Dec 09, 2016 11:51
[2016-12-09] MEDS ORDERED: Glucose 40% Oral Gel 15 Gm Tube PO PRN (12:20)
[2016-12-09] MEDS ORDERED: DEXTROSE 10% IV ONE (12:25)
[2016-12-09] MEDS: Dextrose 5% 0.45% NaCl 1,000 ML IV SCH (12:52)
--- NOTE | 2016-12-09 15:03 | NUR ---
Hypoglycemia/ swallow/scrotal edema Patient hypoglycemic this AM. Gave juice, ensure and scrambled eggs. Blood glucose up to 93. Patient then made NPO r/t swallowing issues. Patient becomes anxious and restless while eating, Spo2 remains in mid-high 90s but pt states he feels as though he cannot breath. Reported to MD and speech therapist. Plan is for patient to have GI consult. Patient had second episode hypoglycemia before noon. 166 mL D10 ordred and given, D5 1/2 NS started at 75mL/hour. Patient blood glucose up to 107. Patient has severe scrotal edema, causing skin to spilt open in a few areas. Scrotum elevated on towel and open areas loosely covered with gauze. MD aware. PRN IV morphine given for pain with good effect
[2016-12-09] MEDS: Vancomycin 100 mg/mL Oral Solution PO SCH ×2 (15:22→20:33)
[2016-12-09] MEDS: Insulin LISPRO 300 Unit/3 mL Inj SUBQ SCH ×2 (17:30→20:33)
--- NOTE | 2016-12-09 20:13 | PROG NOTE ---
[address] [address] PROGRESS NOTE PATIENT: TRICIA RAMIREZ : 1945 MR#: [id number] ADMIT: 11/28/2016 JOB ID: [id number] DATE: 12/09/2016 SUBJECTIVE: I was asked by Dr. Sawyer Busby to follow up on this patient's case. He had an open gastroenterology consult with Dr. Parikh this admission and has previously had consultation by Dr. Peterson on November 20. His recent upper and lower endoscopies were noted from November 21. The patient is currently in the middle of a prolonged hospitalization for diarrhea among numerous other acute and chronic problems. Dr. Parikh initially thought this was going to be a dumping syndrome. Overflow incontinence was considered. He has sluggish transition of contrast from the TI into the colon. He has severe gastroparesis by nuclear med study. He has been experiencing symptoms of difficulty swallowing and some coughing at meals evidently. He has been diagnosed with aspiration pneumonia and is currently on treatment for same. He had a barium swallow three days ago that showed severe esophageal dysmotility with a patulous and tortuous appearance to the esophagus but no definite stricture was noted. At endoscopy, Dr. Peterson did not get a great look at the fundus region. The patient reports that he has had some challenges with swallowing over the last five months or so. He denies any nausea or vomiting. Denies early satiety. He states that at his baseline he would have one formed bowel movement per day. ALLERGIES: No known drug allergies. MEDICATIONS: Currently, he is on therapy for C. difficile with Flagyl. His last dose was given this morning with some pudding and he seemed to tolerate that okay. He is additionally on Zosyn, morphine, oral Vanco (as of today), Flomax, Tylenol, lisinopril, Norvasc, sodium bicarb, atorvastatin, insulin, nystatin power, Atrovent, p.r.n. MiraLAX, p.r.n. senna, p.r.n. Zofran. OBJECTIVE Vital signs stable Alert, conversation, in no distress. Abdomen non distended. No significant tenderness. BS + ASSESSMENT/PLAN C diff colitis, gastroparesis, esophageal dysmotility, dysphagia, aspiration pneumonia. Based on the barium swallow, i'm concerned about the prospect of achalasia. At last EGD, there was suboptimal visualization of fundus to exclude pseudoachalasia. Repeat EGD is planned tomorrow with anesthesia support. Will place manometry probe at that time and formally evaluate for possibility of achalasia. Depending on findings , may need to be started on temporary nasojejunal tube feeds. MTDD
[2016-12-09] MEDS: 0.9% Sodium Chloride 250 ML IV SCH (20:34)
[2016-12-09] MEDS ORDERED: Vancomycin Inj 1,000 MG in IV Premix 1 EACH IV SCH (22:00)
[2016-12-10] VITALS (12 sets, daily range): BP systolic 176–190; BP diastolic 90–107; PULSE 66–77; RESP 10–18; O2SAT 93–100
[2016-12-10] MEDS: Piperacillin-Tazo 3.375 Gm Inj 3.375 GM in Dextrose 5% Minibag Plus 50 ML IV SCH ×4 (00:26→23:50)
[2016-12-10] MEDS: Vancomycin 100 mg/mL Oral Solution PO SCH ×4 (02:14→20:23)
--- NOTE | 2016-12-10 05:05 | NUR ---
BLOOD SUGARS Pt was hypoglycemic last night, gave D10 250 bolus. Pt had 77 BS, 140 BS after bolus. D5 1/2NS running @ 100ml/hr. Pt was hypertensive 180's systolic last vital check. Addendum: 12/10/16 at 0548 by JIMENEZ MAURICIO RN BP 185/104 HR 72
[2016-12-10] MEDS: Insulin LISPRO 300 Unit/3 mL Inj SUBQ SCH ×4 (08:00→20:23)
--- NOTE | 2016-12-10 09:03 | NUR ---
Respiratory Pt assessed, found sitting up in bed on 2 LNC. Sat 99%, Hr 87, RR 16, BS clear bilaterally. Pt states no SOB, cough or sputum. Pt declined Tx and is aware Tx available if desired.
[2016-12-10] MEDS: Labetalol 5 mg/mL 4 mL Inj IVPUSH PRN ×3 (09:56→20:25)
[2016-12-10] MEDS: Dextrose 5% 0.45% NaCl 1,000 ML IV SCH (11:45)
--- NOTE | 2016-12-10 11:57 | NUR ---
NUTRITION FOLLOW UP: ASSESS: Pt is a 71 YO male admitted 12 days ago with hypoglycemia, persistent diarrhea and MURPHY. Nephrology following, reports MURPHY likely 2/2 obstructive uropathy, ATN and NSAID use. Gastroenterology initially thought the etiology of patient's persistent diarrhea was a dumping syndrome; however, gastric emptying study and small bowel follow-through results do not support this. He has sluggish transition of contrast from the TI into the colon. He has severe gastroparesis by nuclear med study. Gastroenterology concerned about the prospect of achalasia. Repeat EGD is planned tomorrow. Depending on findings, gastroenterology considering the possibility of temporary nasojejunal tube feeds, which the patient is open to. Patient has been experiencing symptoms of difficulty swallowing and some coughing at meals. He has been diagnosed with aspiration pneumonia and is currently on treatment for same. He had a barium swallow three days ago that showed severe esophageal dysmotility with a patulous and tortuous appearance to the esophagus but no definite stricture was noted. The patient reports that he has had some challenges with swallowing over the last five months or so. PMHX: Peripheral neuropathy, DM, HTN, Anemia, Legally blind, Recent GI bleed, chronic intermittent diarrhea for past 2 years. LABS: Reviewed. Cr 1.78, Glu 126, A1c 8.7, Ca 8.4. MEDS:Reviewed. Insulin, flagyl. GI: BM x 1 (12/09). C.Diff + SKIN: No pressure injuries, per Right Of Way Manager. WTS: 87.4 kg, BMI 26.9 kg/m2, admit wt 76.9 kg DIET: NPO. PO intake generally good prior to NPO status ordered yesterday. EST. NEEDS: Kcals: 1920-2310kcal/day (25-30kcal/kg) Pro: 75-95g/day (1.0-1.2g/kg) Fluid: Approx. 1923 mL (25 mL / kg admit BW) NUTRITION DIAGNOSIS: 1) Altered GI function related to unknown etiology as evidence by persistent diarrhea, gastroparesis, esophageal dysmotility - PERSISTS. 2) Inadequate oral intake related to altered GI function, as evidenced by 1) above. NUTRITION INTERVENTION: 1) In the event [place] enteral feeding ordered over weekend, recommendation follows. Unsigned orders will be placed in the chart for MD authorization. Recommend initiate Glucerna 1.5 @ 45 ml/hr x 8 hr. Once tolerance established, recommend advance rapidly 10 ml every 4 hr. to goal rate 60 mL/hr. Patient is not at significant refeeding risk. Enteral feeding at goal would provide 2070 kcal, 114 g protein, sufficient to meet 100% nutrient needs. MONITOR / EVAL: NPO status, GI status, labs, wt, PO, POC, nutrition status. Will continue to monitor per high nutrition risk guidelines. Addendum: 12/10/16 at [address] In the event enteral feeding initiated and IVF not ordered, recommend flush dose 35 mL / hour to meet 100% fluid needs.
--- NOTE | 2016-12-10 13:26 | PCM.PNNEPH ---
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 His stay is further complicated by labile hypertension, and currently pneumonia and C.diff infection. Yesterday and overnight, patient experience several episodes of hypoglycemia. He was placed on D5 1/2 NS 100cc/hr. BP180/100, HR in the 70's. Maintaining urine output 0.45cc/kg/hr. I/O 1.4/ 0.9L. Cr 1.78, trending down. Na 143. Patient denies any fever, chills, nausea, vomiting, or diarrhea. He is currently NPO in preparation for upper endoscopy. He may have achalasia per GI. Exam Vital Signs Vital Sign - Last Date Time Temp Pulse Resp B/P Pulse Ox O2 Delivery O2 Flow Rate FiO2 12/10/16 11:44 36.2 68 18 184/95 100 Nasal Cannula 2.00 Intake and Output 12/09/16 12/09/16 12/10/16 Cumulative From/Thru 15:00 23:00 07:00 11/28/16 14:13 - 12/10/16 06:35 Intake Total 600 ml 1400 ml 98735 ml Output Total 400 ml 500 ml 55725 ml Balance 200 ml 900 ml 29702 ml Intake Oral 600 ml 0 ml 7774 ml IV Total 1400 ml 25294 ml Output Urine Total 400 ml 500 ml 60135 ml Stool Total 900 ml # Voids 5 # Bowel Movements 1 19 Exam Gen: Lying comfortably at 30degree head tilt HEENT: PERRLA, Anicteric sclerae, Neck: supple, no JVD, Cardio: Regular rate and rhythm with no murmurs, rubs, or gallops appreciated Pulm: b/l air sound, no crackles, wheezes, or rhonchi. Normal respiratory effort with no use of accessory muscles. Abd: positive bowel tone. Soft, nontender, nondistended. Extremities: No clubbing, cyanosis, or lymphadenopathy appreciated. moderate pitting edema to the thigh, scrotal swelling with weeping blisters. +Song cath Skin: Normal temperature and texture; normal skin turgor, no rash, Neuro: moving equally on 4 limbs. Psyc: Normal mood and affect. AoX3 Lab and Diagnostics Result Diagram: 12/09/165 12/10/16219 X-Rays, CTs and MRIs Date of Service: 11/28/16 1409 PROCEDURE: X-RAY CHEST ONE VIEW, PORTABLE ([id number]) IMPRESSION: Shallow inspiration causes bibasliar atelectasis left greater than right. Infection is much less likely. Otherwise negative chest. Dictated by: Levi Malone M.D. on 11/28/2016 at 14:33 Approved by: Levi Malone M.D. on 11/28/2016 at 14:35 12-lead ECG NSR at about 70bpm. 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 # Hematuria Plan: # Cont antihypertensive regiment, cont amlodipine and lisinopril, d/c coreg 2nd bradycardia - Evidence risk<benefits of HAIM-i. # Changed D5 1/2 NS to D10 1/2NS -Caution use of fluids in the setting of CHF, severe edema. # Awaits for immune biomarkers Kiet Obrien DO 12/10/16 1344: Exam Lab and Diagnostics Result Diagram: 12/09/1614412/10/16219 Plan Plan: The patient was seen and examined along with the internal medicine resident. I have from the note and discussed the plan and agree with the findings above. I would like to add that we need to be cautious with ongoing hydration with the patient. Derick understands the need to raise his blood sugar we may need to give him some supplemental diuretics AVOID FLUID OVERLOAD. Jared Goodrich DO Dec 10, 2016 13:26 Kiet Obrien DO Dec 10, 2016 13:44
--- NOTE | 2016-12-10 14:08 | PCM.PNMED ---
Subjective Date of Service Dec 10, 2016 Subjective Patient is doing well today. He denies any dyspnea, palpitations. He also denies any nausea, vomiting, abdominal distention or abdominal pain. No bowel movement. He is scheduled for endoscopy at 3 this afternoon. He still has 5 other 10 scrotal pain and edema. No overnight events. Exam Vital Signs Vital Sign - Last Date Time Temp Pulse Resp B/P Pulse Ox O2 Delivery O2 Flow Rate FiO2 12/10/16 11:44 36.2 68 18 184/95 100 Nasal Cannula 2.00 Intake and Output 12/09/16 12/09/16 12/10/16 Cumulative From/Thru 15:00 23:00 07:00 11/28/16 14:13 - 12/10/16 06:35 Intake Total 600 ml 1400 ml 25532 ml Output Total 400 ml 500 ml 53238 ml Balance 200 ml 900 ml 18478 ml Intake Oral 600 ml 0 ml 7774 ml IV Total 1400 ml 06017 ml Output Urine Total 400 ml 500 ml 27704 ml Stool Total 900 ml # Voids 5 # Bowel Movements 1 19 Exam Alert and oriented -3, no distress. Fluent speech Anicteric sclera. Lungs are clear with normal rate and effort Heart is regular without murmur gallop or rub Abdomen soft nontender, distended and nontender Extremities are free of edema. Skin is free of rash or lesions. Gross scrotal edema with some penile edema. IVs and Medications Medications Reviewed: Medications were reviewed in detail Lab and Diagnostics Result Diagram: 12/09/16 0145 12/10/16 0220 X-Rays, CTs and MRIs Date of Service: 11/28/16 1409 PROCEDURE: X-RAY CHEST ONE VIEW, PORTABLE ([id number]) IMPRESSION: Shallow inspiration causes bibasliar atelectasis left greater than right. Infection is much less likely. Otherwise negative chest. Dictated by: Levi Malone M.D. on 11/28/2016 at 14:33 Approved by: Levi Malone M.D. on 11/28/2016 at 14:35 12-lead ECG NSR at about 70bpm. there is minimall ST elevation in the lateral leads but unchanged compared to the EKG from 11/20/16 Assessment & Plan 1. C-diff Colitis : Improving -unlikely this is the cause of his 2 1/2 years of diarrhea as he has been tested negative for c-diff several time in that window of time . -started him on Flagyl 12/06. Day=#3 -Patient on Rifaximin per notes but not seen on medication list. Hold off for now -At this point we will continue on by mouth vancomycin, this was switched from metronidazole yesterday. 2. Acute renal failure, POA. Improving. -renal U/S is unremarkable -Monitor renal function and electrolytes . -Nephrology fallowing. 3.Acute diastolic heart failure, POA . Improved.. -He gained 16 lbs during the course of hospital stay . -He may be fluid overload rather than dehydrated Will use oral Lasix daily. 4. Scrotal edema with urinary retention -Song inserted 12/06 -testicular ultrasound unremarkable. Urology is following we will continue the recommendations of scrotal elevation and volume control. 5. Acute hypoglycemia with history of diabetes mellitus, present prior to admission. Active.. We will place him on D5 half-normal saline at 75 to prevent hypoglycemia. - Episode of hypoglycemia has been going on for a while and likely related to gastroparesis . -Tolerating long acting insulin . Continue Lantus 14 units at bedtime with correction insulin low dose -due to gastric emptying problems and recurrent hypoglycemic episodes I would let patient's blood sugars run higher The patients require the use of a dextrose 5 or dextrose 10 one half normal saline drip for recurrent relative hypoglycemia while not eating. 6. Hypertension, poa, stable : -initially hypotensive on admission requiring pressor . -BP better now -with rising creatinin nephrology may reconsider the HAIM -with recurrent episodes of symptomatic bradycardia will reduce or even d/c b alen 7. Bradycardia, active -reduce or even d/c b alen -thyroid tests OK 8. Encephalopathy, POA. : -Resolved. 9. Acute UTI. Present on admission, resolved. - Completed IV Ceftriaxone (3 day ): -Urine culture grow mixed cheryl . Blood culture negative 10. Mildly elevated Troponin. - Possible demand ischemia and amplified by underlying Lisa - Check Echo shows normal EF 11. Dysphagia > Seen by speech and swallow . This sounds like this condition has been POA. The patient has evidence of probable esophageal dysmotility with retained liquids and esophagus on [address] -MBS report review: o laryngeal penetration or tracheobronchial aspiration. There is severe esophageal dysmotility with tortuous and patulous appearance of the esophagus. The patient may have achalasia. There is no known history of gastroparesis. He will undergo endoscopy this afternoon, December 10.. Aspiration Pneumonia, improving We will resume zosyn for coverage of ongoing aspiration as well as possible scrotal skin infection. 13. Pain Management -prn IV morphine ordered, high-risk medication Patient is full resuscitation, this is confirmed today. . GI Prophylaxis: Proton Pump Inhibitor VTE Prophylaxis: SCDs VTE Mechanical Devices: Intermittant Pneumatic CD Resuscitation Status: CPR: Attempt Resuscitation (discussed and verified with patient) Milton Busby MD Dec 10, 2016 14:08
[2016-12-10] MEDS ORDERED: Propofol 10,000 mCg/mL 20 mL Inj ONE (14:17)
[2016-12-10] MEDS: DEXTROSE IV SCH (14:24)
[2016-12-10] MEDS: SODIUM CHLORIDE IV SCH (14:24)
[2016-12-10] MEDS ORDERED: Lidocaine Topical 2% 30 mL Jelly ONE (15:05)
[2016-12-10] MEDS ORDERED: Lactated Ringer's 1,000 ML IV ONE (16:17)
--- NOTE | 2016-12-10 16:24 | NUR ---
Off Unit Patient off unit to Endoscopy, report given to EMMANUEL James
--- NOTE | 2016-12-10 18:21 | NUR ---
Returned to unit Patient returned to unit via bed. A&Ox3. Denies pain/discomfort. Patient ok to take PO, start on full liquid diet and advance as tolerated. Patient has had a few sips of ensure but states it feels like it is "stuck" and states he cant swallow it all the way. MD aware.
[2016-12-10] MEDS ORDERED: Vancomycin Serum Trough XX ONE (21:30)
[2016-12-11] VITALS (9 sets, daily range): BP systolic 142–194; BP diastolic 80–105; PULSE 61–75; RESP 16–18; O2SAT 91–100
--- NOTE | 2016-12-11 00:21 | NUR ---
BLOOD PRESSURE Pt was hypertensive, 180's/100's, HR 70's, gave PRN 20mg IV push Labetolol. Pt denies any pain, A&Ox3. Pt tolerating full liquid diet, no c/o N/V. No other issues noted at this time.
[2016-12-11] MEDS: Vancomycin 100 mg/mL Oral Solution PO SCH ×4 (02:23→21:32)
--- NOTE | 2016-12-11 05:36 | ENDO ---
[address] [address] ENDOSCOPY PROCEDURE PATIENT: TRICIA RAMIREZ : 1945 MR#: [id number] ADMIT: 11/28/2016 JOB ID: [id number] DATE OF SERVICE: 12/10/2016 PROCEDURE: Esophagogastroduodenoscopy. INDICATIONS: A 71-year-old male with abnormal imaging concerning for pooling of fluid in the esophagus in the context of an aspiration pneumonia. Repeat upper endoscopy was requested. Our goal is in essence to fully exclude a mass lesion or other pathology to account for his clinical findings. EQUIPMENT: [id number]. SEDATION: Monitored anesthesia as provided by Dr. Leo Goodrich. COMPLICATIONS: None identified. PROCEDURE INFORMATION: After the risks and benefits were explained, written and verbal informed consent was obtained. The patient was brought into the endoscopy suite and placed into the left lateral decubitus position. Sedation was achieved as above. The scope was introduced into the mouth through the bite block, and advanced under direct visualization to the second portion of the duodenum. The scope was slowly withdrawn to carefully examine the mucosa for any defects or lesions. Retroflexed views were accomplished in the stomach. The stomach was decompressed. The scope removed from the patient who tolerated the procedure well. FINDINGS: 1. Duodenum: No mucosal pathology from the bulb through to the second portion. The major papilla was seen and draining bile quite readily. 2. Stomach: The patient had a small amount of residual liquid and scant debris which was easily suctioned with the endoscope. I did not see any ulcers. No mass lesions. No outlet obstruction. Diffuse gastropathy was seen throughout. Retroflexed views of the lower esophageal sphincter did not disclose any evidence of neoplasia or mass lesion. 3. Esophagus: The squamocolumnar junction correlated with the top of the gastric folds. The GE junction was at 45 cm from the incisors. No acute erosive changes. No strictures. No mass lesions. The patient had a mildly tortuous distal esophagus. The lower esophageal sphincter mechanism visually appeared to be reasonably normal and did not really impede the scope all that much with advancement into the stomach proper. However, I did not really appreciate any significant esophageal motility. There was a fairly impressive amount of retained bubbles and liquid which required suction with the endoscope for and complete mucosal examination. I did not otherwise appreciate any mucosal pathology after the patulous esophagus was cleared. ENDOSCOPIC DIAGNOSES: 1. Patulous somewhat tortuous esophagus. 2. Reasonably normal appearing lower esophageal sphincter mechanism. 3. Gastropathy. PROCEDURE NUMBER TWO: Just prior to endoscopy, attempt was made to obtain manometry evaluation of the esophagus. We were not able to advance the probe through the LES during the study; however, evaluation of the body of the esophagus was achieved with 10 wet swallows. Zero peristalsis was observed and across all 10 swallows, there was in essence 100% incomplete bolus clearance. Findings are consistent with achalasia. RECOMMENDATIONS: 1. Continue oral C. difficile therapy. 2. Continue treatment for the aspiration pneumonia. 3. Will initiate diabetic dysphagia diet for now. I think that starting him on 30 mg of diltiazem, short-acting, 25-30 minutes before meals three times a day may assist with his swallowing. 4. Additionally, he is to remain fully upright in a seated position for at least three hours after any meal. I think this will reduce his chances of significant aspiration. 5. If he does not tolerate this, he may need to be considered for at the very least a temporizing nasal jejunal initiation of tube feeds. Even this may prove unsuccessful if he does have a more global gastrointestinal motility problem as has been suggested by his [facility] gastric emptying study and the small bowel follow-through results. 6. Additional consideration will thereafter be given for lower esophageal sphincter Botox injection.
--- NOTE | 2016-12-11 05:51 | NUR ---
RESTLESS/ANXIETY Pt very restless and anxious this AM, up most of the night. Pt started to pick at his mouth and tore pieces of the roof of his mouth off. Pt c/o scrotal pain, gave 2mg Morphine and paged MD for anxiety meds.
[2016-12-11] MEDS: Labetalol 5 mg/mL 4 mL Inj IVPUSH PRN (06:12)
[2016-12-11] MEDS: Insulin LISPRO 300 Unit/3 mL Inj SUBQ SCH ×4 (08:49→21:31)
[2016-12-11] MEDS: Piperacillin-Tazo 3.375 Gm Inj 3.375 GM in Dextrose 5% Minibag Plus 50 ML IV SCH ×2 (08:49→15:58)
--- NOTE | 2016-12-11 10:45 | PROG NOTE ---
[address] [address] PROGRESS NOTE PATIENT: TRICIA RAMIREZ : 1945 MR#: [id number] ADMIT: 11/28/2016 JOB ID: [id number] DATE: 12/11/2016 SUBJECTIVE: At this point, difficult to determine whether he is going to have some success with the attempt at medical management of achalasia. The nursing staff expressed that he had some element of anxiety about eating and drinking this morning. He has not been up to the bedside in a chair. When I arrived, he had a tray at his bed but was in the semirecumbent position still. OBJECTIVE: Blood pressure is 194/105, pulse 73, breathing 18, temperature 36.7, 99% on 2 L. The patient was otherwise in no distress, conversational, and eager to go home. LABORATORY DATA: Hemoglobin 8.4, platelets 135, white count 6.1. Creatinine is 1.50. ASSESSMENT AND RECOMMENDATIONS: This is a 71-year-old male with complicated diabetes and fairly universal gastrointestinal dysmotility. Clostridium difficile symptoms appear to be under control. He has not had a bowel movement today, and his last movement yesterday was considered soft serve. He is to finish out treatment for the Clostridium difficile, and I would recommend all staff and attending providers be attendant to his stool consistency. I suspect he actually may have a tendency towards constipation and overflow. Ultimately, he may need some regular assistance to facilitate bowel movements. I would like to see how he does with compliance with my recommendations from yesterday. I have encouraged nursing staff to get him fully up out of bed, seated at the bedside for his meals, and to remain with his torso in complete vertical position for at least 3 hours after each meal. The diltiazem should be on board about 30 minutes before each meal. I notice blood pressure is still in an unacceptable range, and diltiazem could easily be titrated up as needed on that score. It may improve his swallowing if that is actually necessary. Will continue to monitor for Dr. Parikh through the weekend. NOTE: Please do not submit a physician charge for this particular encounter. Today is the sabbath. Please do not submit a physician charge for this particular note.
--- NOTE | 2016-12-11 11:49 | PCM.PNNEPH ---
Subjective Date of Service Dec 11, 2016 Subjective Patient's blood pressure has been consistently elevated last several days. He has also been having considerable sleep problems which has no doubt added to this. Last 24 hours he has had 1830 a.m. and 1300 out with 1100 out already today. He offers no new complaints. His creatinine today is 1.5. Exam Vital Signs Vital Sign - Last Date Time Temp Pulse Resp B/P Pulse Ox O2 Delivery O2 Flow Rate FiO2 12/11/16 10:37 142/80 12/11/16 07:53 36.7 73 18 99 Nasal Cannula 2.00 Intake and Output 12/10/16 12/10/16 12/11/16 Cumulative From/Thru 15:00 23:00 07:00 11/28/16 14:13 - 12/11/16 06:09 Intake Total 430 ml 100 ml 35231 ml Output Total 800 ml 1100 ml 24252 ml Balance -370 ml -1000 ml 8994 ml Intake Oral 0 ml 100 ml 7874 ml IV Total 430 ml 58609 ml Output Urine Total 800 ml 1100 ml 42993 ml Stool Total 900 ml # Voids 5 # Bowel Movements 19 Exam Neck is supple without adenopathy or thyromegaly. He does have some mild to moderate venous distention at 45. Lungs showed a few bibasilar rales. Heart is regular and rhythmical with a soft systolic murmur. Abdomen is soft without tenderness or rebound guarding masses or hepatosplenomegaly. Extremities do not show any evidence of any clubbing, cyanosis, or edema. Skin turgor is good no evidence of any rashes. There is some mild lower extremity edema which is pitting. Lab and Diagnostics Result Diagram: 12/09/16 0145 12/11/16 0230 X-Rays, CTs and MRIs Date of Service: 11/28/16 1409 PROCEDURE: X-RAY CHEST ONE VIEW, PORTABLE ([id number]) IMPRESSION: Shallow inspiration causes bibasliar atelectasis left greater than right. Infection is much less likely. Otherwise negative chest. Dictated by: Levi Malone M.D. on 11/28/2016 at 14:33 Approved by: Levi Malone M.D. on 11/28/2016 at 14:35 12-lead ECG NSR at about 70bpm. 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 Recommendations #1 of like to add chlorthalidone 25 mg along with labetalol 200 mg twice daily orally. First dose was eventually released medicines will be given now. Kiet Obrien DO Dec 11, 2016 11:49
--- NOTE | 2016-12-11 13:29 | PCM.PNMED ---
Subjective Date of Service Dec 11, 2016 Subjective He denies any little pain other than the scrotal area. He also denies nausea and is hungry. He did eat some soup this morning and states it feels IN his stomach. No abdominal pain. No chest pain or shortness of breath. No diarrhea. No overnight events noted. Exam Vital Signs Vital Sign - Last Date Time Temp Pulse Resp B/P Pulse Ox O2 Delivery O2 Flow Rate FiO2 12/11/16 12:05 36.6 63 18 156/83 100 Nasal Cannula 2.00 Intake and Output 12/10/16 12/10/16 12/11/16 Cumulative From/Thru 15:00 23:00 07:00 11/28/16 14:13 - 12/11/16 06:09 Intake Total 430 ml 100 ml 42572 ml Output Total 800 ml 1100 ml 25616 ml Balance -370 ml -1000 ml 8994 ml Intake Oral 0 ml 100 ml 7874 ml IV Total 430 ml 68888 ml Output Urine Total 800 ml 1100 ml 78141 ml Stool Total 900 ml # Voids 5 # Bowel Movements 19 Exam Alert and oriented -3, no distress. Fluent speech Anicteric sclera. Lungs are clear with normal rate and effort Heart is regular without murmur gallop or rub Abdomen soft nontender, flat Extremities are free of edema. Skin is free of rash or lesions. Fair amount of scrotal edema persists. A Song catheter is in place. IVs and Medications Medications Reviewed: Medications were reviewed in detail Lab and Diagnostics Result Diagram: 12/09/16 0145 12/11/16 0230 X-Rays, CTs and MRIs Date of Service: 11/28/16 1409 PROCEDURE: X-RAY CHEST ONE VIEW, PORTABLE ([id number]) IMPRESSION: Shallow inspiration causes bibasliar atelectasis left greater than right. Infection is much less likely. Otherwise negative chest. Dictated by: Levi Malone M.D. on 11/28/2016 at 14:33 Approved by: Levi Malone M.D. on 11/28/2016 at 14:35 12-lead ECG NSR at about 70bpm. there is minimall ST elevation in the lateral leads but unchanged compared to the EKG from 11/20/16 Assessment & Plan 1. C-diff Colitis : Improving his diarrhea appears to be resolved. -unlikely this is the cause of his 2 1/2 years of diarrhea as he has been tested negative for c-diff several time in that window of time . -started him on Flagyl 12/06. Day=#3 -Patient on Rifaximin per notes but not seen on medication list. Hold off for now -At this point we will continue on by mouth vancomycin, this was switched from metronidazole yesterday. 2. Acute renal failure, POA. Improving. -renal U/S is unremarkable -Monitor renal function and electrolytes . -Nephrology fallowing. No change in current medical approach. 3.Acute diastolic heart failure, POA . Resolved.. -He gained 16 lbs during the course of hospital stay . -He may be fluid overload rather than dehydrated Will use oral Lasix daily. No change to this for now. 4. Scrotal edema with urinary retention -Song inserted 12/06 -testicular ultrasound unremarkable., No change to current approach. Leave Song catheter in. Urology is following we will continue the recommendations of scrotal elevation and volume control. 5. Acute hypoglycemia with history of diabetes mellitus, present prior to admission. Resolved with dextrose drip. We will monitor this with his current trial of eating... We will place him on D5 half-normal saline at 75 to prevent hypoglycemia. - Episode of hypoglycemia has been going on for a while and likely related to gastroparesis . -Tolerating long acting insulin . Continue Lantus 14 units at bedtime with correction insulin low dose -due to gastric emptying problems and recurrent hypoglycemic episodes I would let patient's blood sugars run higher The patients require the use of a dextrose 5 or dextrose 10 one half normal saline drip for recurrent relative hypoglycemia while not eating. 6. Hypertension, poa, stable and mildly uncontrolled. : -initially hypotensive on admission requiring pressor . -BP better now -with rising creatinin nephrology may reconsider the HAIM -with recurrent episodes of symptomatic bradycardia will reduce or even d/c b alen We will continue to follow this on his diltiazem which we will increase to 60 every 8 by tomorrow if he continues to tolerate this. 7. Bradycardia, active -reduce or even d/c b alen -thyroid tests OK 8. Encephalopathy, POA. : -Resolved. 9. Acute UTI. Present on admission, resolved. - Completed IV Ceftriaxone (3 day ): -Urine culture grow mixed cheryl . Blood culture negative 10. Mildly elevated Troponin. - Possible demand ischemia and amplified by underlying Lisa - Check Echo shows normal EF 11. Dysphagia > Seen by speech and swallow . This sounds like this condition has been POA. The patient has evidence of probable esophageal dysmotility with retained liquids and esophagus on 2 prior [address]s. -MBS report review: o laryngeal penetration or tracheobronchial aspiration. There is severe esophageal dysmotility with tortuous and patulous appearance of the esophagus. The patient appears to have achalasia on his EGD. Manometry upon probe could not be placed. The LES did appear to be very tight. He is currently on a trial of diltiazem orally before meals to see if this improves his situation. We will continue this for another 24 hours. 12.. Aspiration Pneumonia, improving We will resume zosyn for coverage of ongoing aspiration as well as possible scrotal skin infection. 13. Pain Management -prn IV morphine ordered, high-risk medication 14. Anxiety, new. The patient's more agitated today or using Ativan 0.5 mg every 4 hours when necessary agitation or anxiety. Patient is full resuscitation . GI Prophylaxis: Proton Pump Inhibitor VTE Prophylaxis: SCDs VTE Mechanical Devices: Intermittant Pneumatic CD Resuscitation Status: CPR: Attempt Resuscitation (discussed and verified with patient) Milton Busby MD Dec 11, 2016 13:29
[2016-12-11] MEDS: DEXTROSE IV SCH (15:58)
[2016-12-11] MEDS: SODIUM CHLORIDE IV SCH (15:58)
--- NOTE | 2016-12-11 16:16 | NUR ---
Restlessness and BM Pt. was restless since last shift. He picked at the roof of his mouth frequently and thus caused bleeding and re-bleeding. Family in room was instructed to discourage him from worsen his self-inflicting oral cavity bleeding. PRN Lorazepam IV given once with little effect in reducing his anxiety/restlessness. He was pre-occupied with the idea that he will going home today. Family at bedside and staff re-oriented him as needed. He was alert and oriented x3 but he was incoherent at times. 2 BMs today (one loose, one watery). Continue C.Diff precautions and PO Vancomycin. Pt. was transferred to chair for meals as directed by Dr. Canseco. No coughing noted with PO intake.
[2016-12-12] VITALS (9 sets, daily range): BP systolic 130–181; BP diastolic 75–93; PULSE 61–79; RESP 16–18; O2SAT 92–97
[2016-12-12] MEDS: Piperacillin-Tazo 3.375 Gm Inj 3.375 GM in Dextrose 5% Minibag Plus 50 ML IV SCH ×3 (00:17→16:35)
[2016-12-12] MEDS: Vancomycin 100 mg/mL Oral Solution PO SCH ×4 (02:30→20:53)
--- NOTE | 2016-12-12 04:04 | NUR ---
neuro: pt. very sleepy this shift, awake short time in evening, too sleepy to eat his dinner, pt. has not had any narcotics or ativan this shift., pt. denies pain, denies nausea.
--- NOTE | 2016-12-12 06:36 | NUR ---
low urine output: pt. had less than 200mls in nichole last noc shift, iv going at 20cc/hr. poor po intake , pt. scheduled to get diuretic this am. Addendum: 12/12/16 at 1053 by SAPNA CANO RN Notified Dr. Busby of low urine output and declining creatinine during morning meeting.
[2016-12-12] MEDS: Insulin LISPRO 300 Unit/3 mL Inj SUBQ SCH ×4 (08:38→21:02)
--- NOTE | 2016-12-12 10:46 | NUR ---
Mentation Pt. appeared well rested this morning. He stated he slept a lot last night. He didn't sleep much the night before. His speech was coherent, in no distress or anxiety. He was able to concentrate during conversation. No BM since yesterday afternoon. He tolerated meals in chair. No C/O difficulty with swallowing. Addendum: 12/12/16 at 1813 by SAPNA CANO RN GI One watery brown stool this shift. Educated pt. and family the importance of hand washing to prevent C. diff infection. Family also understands the rationale of sitting on chair during and for 3 hours after meals. Pt. was compliant with this.
--- NOTE | 2016-12-12 12:05 | PCM.PNNEPH ---
Subjective Date of Service Dec 12, 2016 Subjective Patient's renal function continues to stabilize however his blood pressure still remains a bit problematic. He was running systolic blood pressures between 140 and 190. He denies any headache, chest pain, or shortness of breath. Intake and output for the last 20 10/15/1976 and 1602 out. This morning his sodium is 142, potassium 3.9, bicarbonate 31, and chloride 104. BUN and creatinine are 17 and 1.67 respectively. Exam Vital Signs Vital Sign - Last Date Time Temp Pulse Resp B/P Pulse Ox O2 Delivery O2 Flow Rate FiO2 12/12/16 10:24 154/93 12/12/16 09:15 70 12/12/16 08:14 36.7 18 97 Room Air 12/12/16 04:11 2.00 Intake and Output 12/11/16 12/11/16 12/12/16 Cumulative From/Thru 15:00 23:00 07:00 11/28/16 14:13 - 12/12/16 06:28 Intake Total 1377 ml 331 ml 03504 ml Output Total 502 ml 125 ml 46009 ml Balance 875 ml 206 ml 07920 ml Intake Oral 840 ml 0 ml 8714 ml IV Total 537 ml 331 ml 41577 ml Output Urine Total 500 ml 125 ml 57390 ml Stool Total 2 ml 902 ml # Voids 5 # Bowel Movements 19 Exam Patient is still quite pale. Neck is supple without adenopathy, thyromegaly, or jugular venous distention. Lungs are clear to auscultation though somewhat diminished. Heart is regular with a soft systolic murmur. Abdomen is soft without any tenderness or rebound guarding masses or hepatosplenomegaly. Extremities do not show any evidence of any clubbing or cyanosis however some mild lower extremity edema persists. Lab and Diagnostics Result Diagram: 12/09/16 0145 12/12/16 0450 X-Rays, CTs and MRIs Date of Service: 11/28/16 1409 PROCEDURE: X-RAY CHEST ONE VIEW, PORTABLE ([id number]) IMPRESSION: Shallow inspiration causes bibasliar atelectasis left greater than right. Infection is much less likely. Otherwise negative chest. Dictated by: Levi Malone M.D. on 11/28/2016 at 14:33 Approved by: Levi Malone M.D. on 11/28/2016 at 14:35 12-lead ECG NSR at about 70bpm. there is minimall ST elevation in the lateral leads but unchanged compared to the EKG from 11/20/16 Plan Impression Impression #1 chronic kidney disease stage III number to diabetic nephropathy # 3 hypertension with hypertensive heart disease and hypertensive nephrosclerosis. Recommendations #1 I have ongoing concerns about the patient's blood pressure. GI is placed the patient on 30 mg of diltiazem 3 times a day for his esophageal motility problems. I would like to try to increase his labetalol to 300 twice a day and I am hoping we do not give a narrative effect to suppress his normal conduction and subsequent bradycardia. Also like to change his lisinopril from 40 a day to 20 twice a day. Also had a dose of Aranesp 60 mg. Kiet Obrien DO Dec 12, 2016 12:05
--- NOTE | 2016-12-12 12:56 | PCM.PNMED ---
Subjective Date of Service Dec 12, 2016 Subjective Patient feels better today. No nausea. No abdominal pain. He has been eating fairly well overnight. He had 2 large bowel movements yesterday. No abdominal distention. His scrotal edema has improved. No cough or shortness of breath. Exam Vital Signs Vital Sign - Last Date Time Temp Pulse Resp B/P Pulse Ox O2 Delivery O2 Flow Rate FiO2 12/12/16 12:25 36.5 63 18 130/75 97 Room Air 12/12/16 04:11 2.00 Intake and Output 12/11/16 12/11/16 12/12/16 Cumulative From/Thru 15:00 23:00 07:00 11/28/16 14:13 - 12/12/16 06:28 Intake Total 1377 ml 331 ml 49653 ml Output Total 502 ml 125 ml 56230 ml Balance 875 ml 206 ml 42642 ml Intake Oral 840 ml 0 ml 8714 ml IV Total 537 ml 331 ml 55448 ml Output Urine Total 500 ml 125 ml 25514 ml Stool Total 2 ml 902 ml # Voids 5 # Bowel Movements 19 Exam Alert and oriented -3, no distress. Fluent speech Anicteric sclera. Lungs are clear with normal rate and effort Heart is regular without murmur gallop or rub Abdomen soft nontender, flat Extremities are free of edema. Scrotal edema is improving. Skin is free of rash or lesions. IVs and Medications Medications Reviewed: Medications were reviewed in detail Lab and Diagnostics Result Diagram: 12/09/16 0145 12/12/16 0450 X-Rays, CTs and MRIs Date of Service: 11/28/16 1409 PROCEDURE: X-RAY CHEST ONE VIEW, PORTABLE ([id number]) IMPRESSION: Shallow inspiration causes bibasliar atelectasis left greater than right. Infection is much less likely. Otherwise negative chest. Dictated by: Levi Malone M.D. on 11/28/2016 at 14:33 Approved by: Levi Malone M.D. on 11/28/2016 at 14:35 12-lead ECG NSR at about 70bpm. there is minimall ST elevation in the lateral leads but unchanged compared to the EKG from 11/20/16 Assessment & Plan 1. C-diff Colitis : Continues to improve and clinically is resolved. Will finish a course of vancomycin orally. -unlikely this is the cause of his 2 1/2 years of diarrhea as he has been tested negative for c-diff several time in that window of time . -started him on Flagyl 12/06. Day=#3 -Patient on Rifaximin per notes but not seen on medication list. Hold off for now -At this point we will continue on by mouth vancomycin, this was switched from metronidazole yesterday. 2. Acute renal failure, POA. Continues to improve. -renal U/S is unremarkable -Monitor renal function and electrolytes . -Nephrology fallowing. No change in current medical approach. 3.Acute diastolic heart failure, POA . Resolved.. -He gained 16 lbs during the course of hospital stay . -He may be fluid overload rather than dehydrated Will use oral Lasix daily. No change to this for now. 4. Scrotal edema with urinary retention, POA. Improving. -Song inserted 12/06 -testicular ultrasound unremarkable., No change to current approach. Leave Song catheter in. Urology is following we will continue the recommendations of scrotal elevation and volume control. 5. Acute hypoglycemia with history of diabetes mellitus, present prior to admission. Resolved with dextrose drip. This appears to be resolved now that he is eating. We will stop dextrose drip and given hyperglycemia will start 5 Lantus at bedtime. We will place him on D5 half-normal saline at 75 to prevent hypoglycemia. - Episode of hypoglycemia has been going on for a while and likely related to gastroparesis . -Tolerating long acting insulin . Continue Lantus 14 units at bedtime with correction insulin low dose -due to gastric emptying problems and recurrent hypoglycemic episodes I would let patient's blood sugars run higher The patients require the use of a dextrose 5 or dextrose 10 one half normal saline drip for recurrent relative hypoglycemia while not eating. 6. Hypertension, poa, stable and controlled: -initially hypotensive on admission requiring pressor . -BP better now -with rising creatinin nephrology may reconsider the HAIM -with recurrent episodes of symptomatic bradycardia will reduce or even d/c b alen We will continue to follow this on his diltiazem which we will increase to 60 every 8 by tomorrow if he continues to tolerate this. 7. Bradycardia, resolved -reduce or even d/c b alen -thyroid tests OK 8. Encephalopathy, POA. : -Resolved. 9. Acute UTI. Present on admission, resolved. - Completed IV Ceftriaxone (3 day ): -Urine culture grow mixed cheryl . Blood culture negative 10. Mildly elevated Troponin. - Possible demand ischemia and amplified by underlying Lisa - Check Echo shows normal EF 11. Dysphagia > Seen by speech and swallow . This sounds like this condition has been POA. The patient has evidence of probable esophageal dysmotility with retained liquids and esophagus on 2 prior CTs. -MBS report review: o laryngeal penetration or tracheobronchial aspiration. There is severe esophageal dysmotility with tortuous and patulous appearance of the esophagus. He appears to be doing much better with his trial of diltiazem orally. This appears to be improving his achalasia and lower esophageal sphincter muscle tone. The patient appears to have achalasia on his EGD. Manometry upon probe could not be placed. The LES did appear to be very tight. He is currently on a trial of diltiazem orally before meals to see if this improves his situation. We will continue this for another 24 hours. 12.. Aspiration Pneumonia, improving We will resume zosyn for coverage of ongoing aspiration as well as possible scrotal skin infection. 13. Pain Management -prn IV morphine ordered, high-risk medication 14. Anxiety, new. The patient's more agitated today or using Ativan 0.5 mg every 4 hours when necessary agitation or anxiety. Patient is full resuscitation . GI Prophylaxis: Proton Pump Inhibitor VTE Prophylaxis: SCDs VTE Mechanical Devices: Intermittant Pneumatic CD Resuscitation Status: CPR: Attempt Resuscitation (discussed and verified with patient) Milton Busby MD Dec 12, 2016 12:56
--- NOTE | 2016-12-12 15:23 | NUR ---
Social Work Note: Continued Discharge Planning Data& Assessment: Per MD pt is not medically ready for discharge at this time. SW met with pt and pt ex at bedside to check in and assess for any unmet needs. Pt ex explained their daughter will be by tomorrow for SW to check in with her regarding any needs and final discharge plan. SW to follow up with pt tomorrow to confirm discharge plan and assess for any unmet needs. No needs identified at this time. SW to continue to follow. Plan: Anticipated discharge home via POV with [facility] and 24/01 family caregiving. SW to follow up with pt tomorrow to confirm discharge plan and assess for any unmet needs. YAYA Dennison
[2016-12-12] MEDS ORDERED: 0.9% Sodium Chloride 250 ML ONE (16:23)
--- NOTE | 2016-12-12 16:27 | PROG NOTE ---
[address] [address] PROGRESS NOTE PATIENT: TRICIA RAMIREZ : 1945 MR#: [id number] ADMIT: 11/28/2016 JOB ID: [id number] DATE: 12/12/2016 SUBJECTIVE: The patient seems to have tolerated the addition of the diltiazem before meals. Nursing staff has him up out of bed, sitting in a chair in the upright position and he is remaining there for 3 hours afterwards. He denies any further aspiration-type symptoms. He does not perceive or complain of any specific difficulty with swallow at the moment. He had another loose bowel movement today. He, of course, continues on antibiotics that would be counterproductive with respect to his C. diff colitis (mainly the Zosyn). He continues on therapy for the C. diff. OBJECTIVE: Vital signs are stable. The patient is alert, cooperative, conversational, in no distress. LABS: Reviewed, stable. ASSESSMENT AND PLAN: Clostridium difficile colitis. Continue therapy two total weeks. As soon as the Zosyn can be discontinued, this would be tremendously helpful from a Clostridium difficile therapy standpoint. With respect to the achalasia, it appears to be doing just fine with minimal medical intervention. I would recommend he simply continue same and follow this along in the GI Clinic.
[2016-12-12] MEDS: Insulin GLARgine 100 Unit/mL Syringe SUBQ SCH (21:02)
[2016-12-13] VITALS (7 sets, daily range): BP systolic 129–170; BP diastolic 75–98; PULSE 54–77; RESP 12–20; O2SAT 94–95
[2016-12-13] MEDS: Piperacillin-Tazo 3.375 Gm Inj 3.375 GM in Dextrose 5% Minibag Plus 50 ML IV SCH ×3 (00:16→16:00)
[2016-12-13] MEDS: Vancomycin 100 mg/mL Oral Solution PO SCH ×4 (04:02→22:32)
--- NOTE | 2016-12-13 05:46 | NUR ---
Blood Pressure / Tele / No Pain Blood pressures much better tonight with SBPs in the 129-161s. No c/o chest pain, Tele SR 60s for almost all night reached HR down to 59s briefly. No c/o SOB, RA sats 94-97%. No c/o pain or discomfort.
[2016-12-13] MEDS: Insulin LISPRO 300 Unit/3 mL Inj SUBQ SCH ×4 (09:42→22:00)
--- NOTE | 2016-12-13 11:50 | PCM.PNNEPH ---
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 Nephrology has been following patient on MURPHY and HTN. Patient denies any new complaints today. BP 129/75. HR 69 with antihypertensive meds: Chlorthalidone 25 mg daily, diltiazem 30 mg tid, labetalol 300 mg bid, lisinopril 20 mg bid I/O 1.3/1.3L, Song still present. No overnight events. Labs Hgb/Hct 8.4/28.2 stable. BMP Na 141, K 4.0, Cl 103, BUN 14, Cr 1.71-stable. Exam Vital Signs Vital Sign - Last Date Time Temp Pulse Resp B/P Pulse Ox O2 Delivery O2 Flow Rate FiO2 12/13/16 08:14 73 18 95 Room Air 12/13/16 04:03 36.6 129/75 12/12/16 04:11 2.00 Intake and Output 12/12/16 12/12/16 12/13/16 Cumulative From/Thru 15:00 23:00 07:00 11/28/16 14:13 - 12/13/16 06:56 Intake Total 1016 ml 313 ml 77366 ml Output Total 1250 ml 1750 ml 51870 ml Balance -234 ml -1437 ml 8404 ml Intake Oral 850 ml 100 ml 9664 ml IV Total 166 ml 213 ml 68997 ml Output Urine Total 850 ml 800 ml 20679 ml Stool Total 950 ml 1852 ml Estimated Blood Loss 400 ml 400 ml # Voids 5 # Bowel Movements 19 Exam Gen: Lying comfortably at 30degree head tilt HEENT: PERRLA, Anicteric sclerae, Neck: supple, no JVD, Cardio: Regular rate and rhythm with no murmurs, rubs, or gallops appreciated Pulm: b/l air sound, no crackles, wheezes, or rhonchi. Normal respiratory effort with no use of accessory muscles. Abd: positive bowel tone. Soft, nontender, nondistended. Extremities: No clubbing, cyanosis, or lymphadenopathy appreciated. Mild lower leg edema, decreased scrotal edema. +Song cath Skin: Normal temperature and texture; normal skin turgor, no rash, Neuro: moving equally on 4 limbs. Psyc: Normal mood and affect. AoX3 Lab and Diagnostics Result Diagram: 12/09/1614412/13/16409 X-Rays, CTs and MRIs Date of Service: 11/28/16 1409 PROCEDURE: X-RAY CHEST ONE VIEW, PORTABLE ([id number]) IMPRESSION: Shallow inspiration causes bibasliar atelectasis left greater than right. Infection is much less likely. Otherwise negative chest. Dictated by: Levi Malone M.D. on 11/28/2016 at 14:33 Approved by: Levi Malone M.D. on 11/28/2016 at 14:35 12-lead ECG NSR at about 70bpm. 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 Concerns for heart block and orthostatic hypotension - Chlorthalidone 25 mg daily, diltiazem 30 mg tid, labetalol 300 mg bid, lisinopril 20 mg bid # Follow up with nephrology in one month post discharge # D/C Song catheter with postvoid residual scan # Nephrology will sign off. Chanell Dutton MD 12/13/16 1849: Exam Lab and Diagnostics Result Diagram: 12/09/1614412/13/16409 Plan Impression Patient was seen and examined. Case discussed with resident. Agreed with assessment and plan as above. Yanick Navarro MD Pg [phone] Jared Goodrich DO Dec 13, 2016 11:50 Chanell Dutton MD Dec 13, 2016 18:49
--- NOTE | 2016-12-13 13:16 | NUR ---
Song removed at 1215hrs Will observe pt for urinary retention. bladder scan 6 hrs post and in and out cath if > 400cc insitu at that time.
--- NOTE | 2016-12-13 13:39 | PCM.DIMED ---
Discharge Instructions Date of Service Dec 13, 2016 Dates of Hospitalization November 28, 2016 at 17:47 Discharge Diagnosis Discharge Diagnosis 1. C-diff Colitis, improved 2. Acute renal failure, improved 3.Acute diastolic heart failure, resolved 4. Scrotal edema with urinary retention, improved. 5. Acute hypoglycemia, improved 6. Hypertension, stable. 7. Bradycardia, resolved 8. Encephalopathy, resolved. 9. Acute UTI. Resolved. 10. Mildly elevated Troponin. Improves. 11. Dysphagia with gastroparesis and probable achalasia, improved 12.. Aspiration Pneumonia, improved Diet Discharge Diet: Low fat, Low Sodium, Diabetic Activity Discharge Activity: Limited until seen by PCP Call your provider Call your provider for: Fever or Chills, Shortness of breath, Chest pain Patient Instructions Follow-up Provider: Afsaneh Ybarra DO Follow-up with PCP in: 1 week Provider: Kiet Obrien DO Follow-up in: 4 weeks Milton Busby MD Dec 13, 2016 13:39
[2016-12-13] MEDS ORDERED: AMOX-366 PO (13:43)
[2016-12-13] MEDS ORDERED: LISI-567 PO (13:43)
[2016-12-13] MEDS ORDERED: DILT30TA30 PO (13:43)
[2016-12-13] MEDS ORDERED: LABE100T4 PO (13:43)
[2016-12-13] MEDS ORDERED: TAMS0.4C98 PO (13:43)
[2016-12-13] MEDS ORDERED: AMLO5TAB2 PO (13:43)
[2016-12-13] MEDS ORDERED: VANC1VIA13 PO (13:43)
--- NOTE | 2016-12-13 13:45 | PCM.DC.MED ---
Discharge Summary Date of Service Dec 13, 2016 Dates of Hospitalization Date of Hospital Admission November 28, 2016 at 17:47 Date of Discharge: Dec 13, 2016 Providers: Admitting Physician: Duarte Bertrand Primary Care Physician: Afsaneh Ybarra DO Attending Physician: Duarte Bertrand Diagnosis at Time of Discharge Diagnosis at Time of Discharge 1. C-diff Colitis, improved 2. Acute renal failure, improved 3.Acute diastolic heart failure, resolved 4. Scrotal edema with urinary retention, improved. 5. Acute hypoglycemia, improved 6. Hypertension, stable. 7. Bradycardia, resolved 8. Encephalopathy, resolved. 9. Acute UTI. Resolved. 10. Mildly elevated Troponin. Improves. 11. Dysphagia with gastroparesis and probable achalasia, improved 12.. Aspiration Pneumonia, improved Consultations Dr. Obrien, nephrology Procedures XRay, CTs & MRIs Date of Service: 11/28/16 1409 PROCEDURE: X-RAY CHEST ONE VIEW, PORTABLE ([id number]) IMPRESSION: Shallow inspiration causes bibasliar atelectasis left greater than right. Infection is much less likely. Otherwise negative chest. Dictated by: Levi Malone M.D. on 11/28/2016 at 14:33 Approved by: Levi Malone M.D. on 11/28/2016 at 14:35 ECG 12 Lead NSR at about 70bpm. 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 He was started on fluids and given 1 dose of ceftriaxone. Nephrology service consulted for MURPHY on CKD Patient denies any symptoms of dysuria, suprapubic pressure, or back pain. No fever, chills, or night sweats. He further denies any urinary urgency, hesitancy, frequency, or incontinency. Though, daughter states that he sits on the toilet for prolonged periods. Possible that he has chronic diarrhea. Patient has a good appetite and has no barriers to oral intake. Patient was recently (11/20) diagnosed with MURPHY secondary to ischemia related to GI bleed and NSAID (Advil) abuse. No recent use of Advil for the past 2 weeks. Creatinine at the time was 2.27, up from outpatient record creatinine 2.16 (09/07 ) and likely baseline creatinine 1.4 on (07/13/2016). Note outpatient protein creatinine ratio 1210. Patient has uncontrolled hypertension for over 20 years with echocardiogram 11/29/2016 showing pseudonormalization suggestive of diastolic heart failure and bilateral ventricular enlargement. He has chronic bilateral lower leg pitting edema. Additionally, patient has diabetes type II for over 40 years, uncontrolled with A1c of 9.7 and multiple sequela. Recent upper endoscopy suggestive of gastroparesis. Patient lives with daughter and manages medication, including insulin, though patient is legally blind. Hospital Course 1. C-diff Colitis : Continues to improve and clinically is resolved. Will finish a course of vancomycin orally. -unlikely this is the cause of his 2 1/2 years of diarrhea as he has been tested negative for c-diff several time in that window of time . -started him on Flagyl 12/06. Day=#3 -Patient on Rifaximin per notes but not seen on medication list. Hold off for now -At this point we will continue on by mouth vancomycin, this was switched from metronidazole yesterday. 2. Acute renal failure, POA. Continues to improve. -renal U/S is unremarkable -Monitor renal function and electrolytes . -Nephrology fallowing. No change in current medical approach. 3.Acute diastolic heart failure, POA . Resolved.. -He gained 16 lbs during the course of hospital stay . -He may be fluid overload rather than dehydrated Will use oral Lasix daily. No change to this for now. 4. Scrotal edema with urinary retention, POA. Improving. -Song inserted 12/06 -testicular ultrasound unremarkable., No change to current approach. Leave Song catheter in. Urology is following we will continue the recommendations of scrotal elevation and volume control. 5. Acute hypoglycemia with history of diabetes mellitus, present prior to admission. Resolved with dextrose drip. This appears to be resolved now that he is eating. We will stop dextrose drip and given hyperglycemia will start 5 Lantus at bedtime. We will place him on D5 half-normal saline at 75 to prevent hypoglycemia. - Episode of hypoglycemia has been going on for a while and likely related to gastroparesis . -Tolerating long acting insulin . Continue Lantus 14 units at bedtime with correction insulin low dose -due to gastric emptying problems and recurrent hypoglycemic episodes I would let patient's blood sugars run higher The patients require the use of a dextrose 5 or dextrose 10 one half normal saline drip for recurrent relative hypoglycemia while not eating. 6. Hypertension, poa, stable and controlled: -initially hypotensive on admission requiring pressor . -BP better now -with rising creatinin nephrology may reconsider the HAIM -with recurrent episodes of symptomatic bradycardia will reduce or even d/c b alen We will continue to follow this on his diltiazem which we will increase to 60 every 8 by tomorrow if he continues to tolerate this. 7. Bradycardia, resolved -reduce or even d/c b alen -thyroid tests OK 8. Encephalopathy, POA. : -Resolved. 9. Acute UTI. Present on admission, resolved. - Completed IV Ceftriaxone (3 day ): -Urine culture grow mixed cheryl . Blood culture negative 10. Mildly elevated Troponin. - Possible demand ischemia and amplified by underlying Lisa - Check Echo shows normal EF 11. Dysphagia > Seen by speech and swallow . This sounds like this condition has been POA. The patient has evidence of probable esophageal dysmotility with retained liquids and esophagus on 2 prior CTs. -MBS report review: o laryngeal penetration or tracheobronchial aspiration. There is severe esophageal dysmotility with tortuous and patulous appearance of the esophagus. He appears to be doing much better with his trial of diltiazem orally. This appears to be improving his achalasia and lower esophageal sphincter muscle tone. The patient appears to have achalasia on his EGD. Manometry upon probe could not be placed. The LES did appear to be very tight. He is currently on a trial of diltiazem orally before meals to see if this improves his situation. We will continue this for another 24 hours. 12.. Aspiration Pneumonia, improving We will resume zosyn for coverage of ongoing aspiration as well as possible scrotal skin infection. 13. Pain Management -prn IV morphine ordered, high-risk medication 14. Anxiety, new. The patient's more agitated today or using Ativan 0.5 mg every 4 hours when necessary agitation or anxiety. Patient is full resuscitation . Exam Vital Signs (Last) Date Time Temp Pulse Resp B/P Pulse Ox O2 Delivery O2 Flow Rate FiO2 12/13/16 12:59 77 12/13/16 12:38 36.6 12 141/79 94 Room Air 12/12/16 04:11 2.00 Exam Patient seen and examined the day of discharge Test 11/28/16 14:10 11/29/16 05:10 11/30/16 07:45 11/30/16 17:57 Free Thyroxine 1.28ng/dL (0.82-1.77) Triglycerides Level 82mg/dL (0-149) Cholesterol Level 95mg/dL (100-199) LDL Cholesterol, Calculated 19.600mg/dL (0-99) VLDL Cholesterol 16.400mg/dL HDL Cholesterol 59mg/dL (>39) Cholesterol/HDL Ratio 1.61 (0.0-4.4) Ferritin 106ng/mL (30-400) Troponin T 0.047ug/L (0.0-0.011) Urine Random Creatinine 82mg/dL (22-328) Urine Random Total Protein 48mg/dL (0-15) Urine Total Protein 53.6mg/dL (Not Estab.) Urine Albumin 49.1% (.) Urine Oclrp-5-Nplaeddd 1.7% (.) Urine Otpnw-9-Pvbibuaqo 4.1% (.) Urine Beta Globulin 9.8% (.) Urine Gamma Globulin 35.2% (.) Urine Protein Electrophoresis Note Comment (.) Urine Monoclonal Protein % Not observed% (Not Observed) Test 12/02/16 01:00 12/02/16 04:59 12/06/16 06:05 12/06/16 12:05 Cortisol 7.9ug/dL (.) Activated Partial Thromboplast Time 24.7sec (22.8-33.0) Phosphorus Level 4.8mg/dL (2.5-4.9) Magnesium Level 2.3mg/dL (1.6-2.6) Thyroid Stimulating Hormone (TSH) 2.770uIU/mL (0.450-4.500) Iron Level 34ug/dL (35-150) Total Iron Binding Capacity 250ug/dL (250-450) Percent Iron Saturation 14%sat (15-50) Unsaturated Iron Binding 216.1ug/dL Test 12/07/16 04:41 12/08/16 10:20 12/08/16 10:21 12/08/16 10:41 Total Bilirubin 0.3mg/dL (0.0-1.2) Aspartate Amino Transf (AST/SGOT) 20U/L (0-50) Alanine Aminotransferase (ALT/SGPT) 29U/L (0-44) Alkaline Phosphatase 142U/L (25-160) Total Protein 6.7g/dL (6.4-8.4) Albumin 2.9g/dL (3.4-5.0) Erythrocyte Sedimentation Rate 26mm/hr (0-30) Prothrombin Time 11.8sec (8.1-12.5) Prothromb Time International Ratio 1.10ratio Urine Color Bloody (YELLOW) Urine Appearance Cloudy (CLEAR,HAZY) Urine pH 5.0 (5.0-8.0) Urine Specific [place] 1.025 (1.003-1.035) Urine Protein 100mg/dL (NEG,TRACE) Urine Glucose (UA) Negativemg/dL (NEGATIVE) Urine Ketones Negativemg/dL (NEGATIVE) Urine Occult Blood Large (NEGATIVE) Urine Nitrite Negative (NEGATIVE) Urine Bilirubin Negative (NEGATIVE) Urine Urobilinogen Normalmg/dL (NORMAL) Urine Leukocyte Esterase Trace (NEGATIVE) Urine RBC >50/hpf (0-2) Urine WBC 0-5/hpf (0-5) Urine Epithelial Cells Occasional/hpf (NONE-MOD) Urine Crystals None seen (NONE SEEN) Urine Bacteria Few/hpf (NONE-FEW) Urine Hyaline Casts None/lpf (NONE) Urine Granular Casts None seen (NONE SEEN) Urine Waxy Casts None seen (NONE SEEN) Urine Red Blood Cell Casts None seen (NONE SEEN) Urine White Blood Cell Casts None seen (NONE SEEN) Urine Mucus None seen (None Seen) Urine Trichomonas None seen (NONE SEEN) Urine Yeast None (NONE SEEN) Urinalysis Comment None Urine Culture Reflexed Indicated Test 12/08/16 12:27 12/08/16 18:01 12/09/16 01:45 12/10/16 21:50 Anti-Nuclear Antibody Screen Negative (Negative) Anti-Glomerular Basement Memb Ab 3units (0-20) Complement C3 137mg/dL (82-167) Complement C4 34mg/dL (14-44) Streptozyme < 20.0IU/mL (0.0-200.0) Lactic Acid Level 0.5mmol/L (0.4-2.0) White Blood Count 6.1th/mm3 (3.8-10.1) Red Blood Count 3.68mil/mm3 (4.40-5.80) Hemoglobin 8.4g/dL (13.8-17.2) Hematocrit 28.2% (41.0-50.0) Mean Corpuscular Volume 76.6fL (81-100) Mean Corpuscular Hemoglobin 22.8pg (27.0-35.0) Mean Corpuscular Hemoglobin Concent 29.8% (32.0-37.0) Red Cell Distribution Width 23.2% (12.3-15.4) Platelet Count 135bil/L (150-400) Neutrophils (%) (Auto) 73.0% (40-74) Lymphocytes (%) (Auto) 16.4% (14-46) Monocytes (%) (Auto) 7.4% (4-12) Eosinophils (%) (Auto) 2.6% (0-5) Basophils (%) (Auto) 0.3% (0-3) Hemoglobin A1c 8.7% (4.8-5.6) Total Creatine Kinase 86U/L (21-232) Procalcitonin 0.22ng/mL (0.00-0.08) Vancomycin Level Trough 5.5mcg/mL Test 12/13/16 04:10 Sodium Level 141mEq/L (134-144) Potassium Level 4.0mEq/L (3.5-5.2) Chloride Level 103mEq/L (97-108) Carbon Dioxide Level 29mmol/L (18-29) Blood Urea Nitrogen 14mg/dL (8-27) Creatinine 1.71mg/dL (0.76-1.27) Estimat Glomerular Filtration Rate 42mL/min (>59) Glucose Level 177mg/dL (60-99) Calcium Level 8.6mg/dL (8.5-10.1) Discharge Medications Discharge Medications Amlodipine (Amlodipine) 5 Mg Tablet 10 MG PO DAILY Prescribed by: MILTON SALTER MD Amoxicillin/Clav K 875-125 mg (Augmentin 875-125 mg) 1 Each Tablet 1 TABLET PO BID Prescribed by: MILTON SALTER MD Atorvastatin (Lipitor) 40 Mg Tablet 40 MG PO HS (Reported) Carvedilol (Carvedilol) 25 Mg Tablet 25 MG PO BID Prescribed by: JOHNNY ZIMMER MD Chlorthalidone (Chlorthalidone) 25 Mg Tablet 25 MG PO DAILY Prescribed by: JOHNNY ZIMMER MD Diltiazem (Cardizem) 30 Mg Tablet 30 MG PO TIDAC Prescribed by: MILTON SALTER MD Furosemide (Furosemide) 40 Mg Tablet 40 MG PO QAM (Reported) Insulin Glargine (Lantus U100 Insulin Vial) 100 Unit/Ml Vial 12 UNIT SUBQ MORNING (Reported) Insulin Glargine (Lantus U100 Insulin Vial) 100 Unit/Ml Vial 14 UNIT SUBQ QPM ( Reported) Labetalol (Labetalol) 100 Mg Tablet 300 MG PO BID Prescribed by: MILTON SALTER MD Lisinopril (Lisinopril) 20 Mg Tablet 20 MG PO BID Prescribed by: MITLON SALTER MD Pregabalin (Lyrica) 100 Mg Capsule 100 MG PO TID (Reported) Tamsulosin (Flomax) 0.4 Mg Capsule 0.4 MG PO DAILY Prescribed by: MILTON SALTER MD Vancomycin (Vancomycin) 1 Gm Vial 250 MG PO Q6 Prescribed by: MILTON SALTER MD As needed Acetaminophen (Acetaminophen) 325 Mg Tablet 650 MG PO Q4H PRN PRN For Fever ( Reported) Fluticasone Propionate (Fluticasone Propionate) 50 Mcg/Actuation [place].susp 1-2 SPRAYS NS DAILY PRN PRN For Congestion (Reported) Followup Plan Disposition: Home Discharge Diet: Low fat, Low Sodium, Diabetic Discharge Activity: Limited until seen by PCP Follow-up Provider: Afsaneh Ybarra DO Follow-up with PCP in: 1 week Provider: Kiet Obrien DO Follow-up in: 4 weeks Time spent 60 minutes Milton Salter MD Dec 13, 2016 13:45
[2016-12-13 14:13] LABS: Antiproteinase 3 (PR-3) Abs 4.3 U/mL (0.0-3.5); Perinuclear (P-ANCA) <1:20 titer (Neg:<1:20)
--- NOTE | 2016-12-13 16:15 | NUR ---
Social Work Note: Discharge Data& Assessment: EMR reviewed. Per pt is medically ready to discharge. Fahad Hu is a 71 year old male admitted on 11/28/2016 for R/O SC, Acute renal failure, and hypertension. PT continues to recommend SNF. Pt and pt family continued to decline SNF and emphasize plan to discharge home via POV with 24/01 family care giving and winston ESTRADA RN and PT. SW notified Samira ESTRADA of resumption of care orders and pt discharge. Pt family confirmed they will be transporting pt home privately. Per pt family request, provided pt family with healthcare financial analyst application and [employer] information for help with completing a Medicaid application on an outpt basis. Pt family denies any other needs. No other discharge needs identified. Plan: Per pt is medially ready to discharge home via POV with winston ESTRADA RN and PT and family caregiving. Pt family denies any other needs. No other discharge needs identified. YAYA Dennison
--- NOTE | 2016-12-13 16:44 | NUR ---
P: Resp, Hemodynmics, Mobility, GI I.E: Pt is on room air and sats mid 90's. VS are stable, although BP elevated this am prior to routine meds. Pt has been getting up out of bed for meals and has done well, eating good diet. Pt is assisted out of bed with minimum of 2 caregivers, he can be unstable on his feet. He has not had a BM today. Nichole was removed at 1215 and pt has voided, but only approx 50cc. Bladder was scanned and 500cc was in bladder per scanner post void. was notified and pt will be able to try to void again this afternoon, but if he is unable to void a nichole has been ordered to be placed for neurogenic bladder with urinary retention.
--- NOTE | 2016-12-13 19:41 | NUR ---
Pt bladder scan at 1800 showed 550cc urine Pt was able to void 200cc after bladder scan showed 550cc.
--- NOTE | 2016-12-13 21:26 | NUR ---
Post void Residual Patient had 426mL post void residual. Information called to Dr. Chavez. Patient does not want nichole catheter. Dr. Busby gave order to discharge patient who is to follow up with Dr. Ybarra on Tuesday at which point post void residual will be checked. Patient and family excited to go home. Did speak to them about it will be important to try voiding every two hours while awake. Spoke with patient EMMANUEL Barraza who will go over discharge paperwork with patient and family.
[2016-12-13] MEDS: Insulin GLARgine 100 Unit/mL Syringe SUBQ SCH (22:16)
--- NOTE | 2016-12-14 05:34 | NUR ---
Discharge Pt to have follow up appointment with Dr. Marko Ybarra on Tuesday and follow up with Dr Moni Obrien in 4 weeks. Discharge instruction packet reviewed with Omid Kamara (Daughter) and Patient, in both Faroese and Turkish. link fabric machine operator offered for discharged instruction, but was declined by Omid Kamara. Hard copy discharge prescriptions given to family. Central line removed by CCU RN. Tele DCd. Pt was dressed and all belongings were gathered and urinal sent home with Patient. Pt discharged via wheelchair accompanied by family.
== END 2016-12-13 22:44 | disposition home health service (06) | DRG 682 ==
LOC: SED 13:55 → MPC 17:47 → OBSVTOIN 17:47 → CCU 12-02 00:23 → PCC 12-05 10:28 → OSC 12-06 12:10 → PCC 12-08 12:52
PROVIDERS: ADMIT Internal Medicine; ATTEND Internal Medicine
PROC: 02H633Z Insertion of Infusion Device into Right Atrium, Percutaneous Approach (ICD-10-PCS; principal; 2016-12-02)
PROC: 4A033R1 Measurement of Arterial Saturation, Peripheral, Percutaneous Approach (ICD-10-PCS; 2016-12-02)
PROC: 0DJ08ZZ Inspection of Upper Intestinal Tract, Via Natural or Artificial Opening Endoscopic (ICD-10-PCS; 2016-12-10 14:30)
DX: N17.0 Acute kidney failure with tubular necrosis (principal); I50.33 Acute on chronic diastolic (congestive) heart failure; G93.40 Encephalopathy, unspecified; J69.0 Pneumonitis due to inhalation of food and vomit; I24.8 Other forms of acute ischemic heart disease; A04.7 Enterocolitis due to Clostridium difficile; I13.0 Hypertensive heart and chronic kidney disease with heart failure and stage 1 through stage 4 chronic kidney disease, or unspecified chronic kidney disease; N39.0 Urinary tract infection, site not specified; E11.649 Type 2 diabetes mellitus with hypoglycemia without coma; E11.319 Type 2 diabetes mellitus with unspecified diabetic retinopathy without macular edema; E11.21 Type 2 diabetes mellitus with diabetic nephropathy; N18.9 Chronic kidney disease, unspecified; K22.0 Achalasia of cardia; Z79.4 Long term (current) use of insulin; N50.89 Other specified disorders of the male genital organs; D50.0 Iron deficiency anemia secondary to blood loss (chronic); N47.2 Paraphimosis; N49.2 Inflammatory disorders of scrotum; R33.9 Retention of urine, unspecified; R13.10 Dysphagia, unspecified; K31.84 Gastroparesis; R00.1 Bradycardia, unspecified